=== PATIENT | female | born 1960 | race Caucasian/White ===

== ENCOUNTER → 2020-09-22 14:22 | Outpatient (BNVA) | payer MEDICARE, MEDICAID, SELFPAY | PROVIDERS: PCP Internal Medicine; Visit Provider Hospitalist | DX: J45.40 Moderate persistent asthma, uncomplicated (principal); K21.00 Gastro-esophageal reflux disease with esophagitis, without bleeding; G47.33 Obstructive sleep apnea (adult) (pediatric); Q67.6 Pectus excavatum; Z79.899 Other long term (current) drug therapy | CPT/HCPCS: 99214 ==

== ENCOUNTER → 2020-12-07 13:36 | Outpatient (BNVA) | payer MEDICARE, MEDICAID, SELFPAY | PROVIDERS: PCP Internal Medicine; Visit Provider Internal Medicine | DX: J45.40 Moderate persistent asthma, uncomplicated (principal); G47.33 Obstructive sleep apnea (adult) (pediatric); Q67.6 Pectus excavatum; K21.9 Gastro-esophageal reflux disease without esophagitis; K21.00 Gastro-esophageal reflux disease with esophagitis, without bleeding; Z79.899 Other long term (current) drug therapy; Z20.822 Contact with and (suspected) exposure to COVID-19 | CPT/HCPCS: 36415; C9803; Q3014; U0003 ==

== ENCOUNTER 2020-12-07 16:00 | Outpatient (REF) | payer MEDICARE, MEDICAID, SELFPAY | END 2020-12-07 16:01 | disposition home or self-care (01) | LOC: HO.LAB 16:00 | PROVIDERS: Visit Provider Internal Medicine | DX: Z20.828 Contact with and (suspected) exposure to other viral communicable diseases (principal) | CPT/HCPCS: 36415; C9803; U0003 ==

== ENCOUNTER 2020-12-16 10:26 | Outpatient (REF) | payer MEDICARE, MEDICAID, SELFPAY ==
--- NOTE | 2020-12-16 11:24 | XR_ITS ---
EXAMINATION: CHEST X-RAY CLINICAL INFORMATION: Cough COMPARISON: Previous chest x-ray most recent June 2020 TECHNIQUE: Two-view chest FINDINGS: The heart does not appear enlarged. There is a right-sided aortic arch. There are surgical clips in the mediastinum and left lung apex. Hilar and mediastinal contours are otherwise unremarkable. The lungs are clear. There is no pleural effusion or pneumothorax. There is mild pectus deformity and scoliosis. There is partial resection or bone loss of the right fourth rib that appears unchanged. XR/XR sinus min 3V IMPRESSION: No evidence for acute disease in the chest.
--- NOTE | 2020-12-16 11:24 | XR_ITS ---
EXAMINATION: CHEST X-RAY CLINICAL INFORMATION: Cough COMPARISON: Previous chest x-ray most recent June 2020 TECHNIQUE: Two-view chest FINDINGS: The heart does not appear enlarged. There is a right-sided aortic arch. There are surgical clips in the mediastinum and left lung apex. Hilar and mediastinal contours are otherwise unremarkable. The lungs are clear. There is no pleural effusion or pneumothorax. There is mild pectus deformity and scoliosis. There is partial resection or bone loss of the right fourth rib that appears unchanged. XR/XR chest 2V IMPRESSION: No evidence for acute disease in the chest.
[2020-12-16 12:22] LABS: MANUAL DIFF FLAG NO
[2020-12-16 12:32] LABS: Basophils Percent Auto 0.6 % (0-2); Eosinophils Absolute Auto 0.1 X10*3/uL (0.0-0.4); Eosinophils Percent Auto 1.8 % (0-4); Hematocrit 41.5 % (37-47); Hemoglobin 14.1 g/dl (12.0-16.0); Imm Gran Abs Auto 0.01 X10*3/uL (0.00-0.03); Imm Gran Pct Auto 0.1 % (0.0-0.4); Lymphocytes Absolute Auto 1.1 X10*3/uL (1.2-4.9); Lymphocytes Percent Auto 16.7 % (20-40); Mean Corpuscular Hemoglobin 29.6 pg (27.0-33.0); Mean Platelet Volume 10.7 fL (9.4-12.3); Monocytes Absolute Auto 0.4 X10*3/uL (0.1-1.2); Monocytes Percent Auto 6.2 % (2-11); Neutrophils Absolute Auto 5.1 X10*3/uL (2.0-8.3); Neutrophils Percent Auto 74.6 % (45-73); Platelet Count 190 X10*3/uL (160-400); Red Blood Count 4.77 X10*6/uL (4.20-5.50); Red Cell Distribution Width 12.3 % (11.0-16.0); White Blood Count 6.8 X10*3/uL (4.8-10.8)
[2020-12-16 13:43] LABS: SARS COV2 IgG Negative (Negative)
[2020-12-16 13:49] LABS: Erythrocyte Sedimentation Rate 5 MM/HR (0-20)
[2020-12-17 23:22] LABS: IgA 61 mg/dL (70-320); IgG 908 mg/dL (600-1540); IgM 98 mg/dL (50-300)
== END 2020-12-16 10:27 | disposition home or self-care (01) ==
LOC: HO.LAB 10:26
PROVIDERS: PCP Internal Medicine; Visit Provider Hospitalist
DX: R05 Cough (principal); J45.909 Unspecified asthma, uncomplicated; J32.9 Chronic sinusitis, unspecified; Z01.84 Encounter for antibody response examination
CPT/HCPCS: 36415; 70220; 71046; 82784; 85025; 85652; 86769; 99212

== ENCOUNTER → 2021-01-17 14:04 | Outpatient (BNVA) | payer MEDICARE, MEDICAID, SELFPAY | PROVIDERS: PCP Internal Medicine; Visit Provider Hospitalist | DX: Z76.89 Persons encountering health services in other specified circumstances (principal) | CPT/HCPCS: 99212 ==

== ENCOUNTER → 2021-05-22 12:51 | Outpatient (REF) | payer MEDICARE, MEDICAID, SELFPAY ==
--- NOTE | 2021-05-22 13:47 | ECG_ITS ---
Test Reason : COPD Blood Pressure : / mmHG Vent. Rate : 070 BPM Atrial Rate : 070 BPM P-R Int : 160 ms QRS Dur : 072 ms QT Int : 390 ms P-R-T Axes : 061 050 054 degrees QTc Int : 421 ms Sinus rhythm with Premature supraventricular complexes Otherwise normal ECG No previous ECGs available Referred By: Ousmane Saucedo Electronically Signed By:Tino Steve
== END ==
LOC: HO.CARD 12:51
PROVIDERS: PCP Internal Medicine; Visit Provider Hospitalist
DX: R00.2 Palpitations (principal); J44.9 Chronic obstructive pulmonary disease, unspecified; J45.40 Moderate persistent asthma, uncomplicated; R05 Cough; Q67.6 Pectus excavatum; G47.33 Obstructive sleep apnea (adult) (pediatric); K21.00 Gastro-esophageal reflux disease with esophagitis, without bleeding; J31.0 Chronic rhinitis
CPT/HCPCS: 93005; 99212

== ENCOUNTER → 2021-07-13 13:45 | Outpatient (BNVA) | payer MEDICARE, MEDICAID, SELFPAY | PROVIDERS: PCP Internal Medicine; Visit Provider Hospitalist | DX: R05 Cough (principal); J45.40 Moderate persistent asthma, uncomplicated; K21.00 Gastro-esophageal reflux disease with esophagitis, without bleeding; J31.0 Chronic rhinitis; G47.33 Obstructive sleep apnea (adult) (pediatric); Q67.6 Pectus excavatum; B37.0 Candidal stomatitis | CPT/HCPCS: 99212 ==

== ENCOUNTER → 2022-01-10 09:42 | Outpatient (BNVA) | payer MEDICARE, MEDICAID, SELFPAY | PROVIDERS: PCP Internal Medicine; Visit Provider Hospitalist | DX: Z13.89 Encounter for screening for other disorder (principal) | CPT/HCPCS: Q3014 ==

== ENCOUNTER 2023-07-22 15:32 | Outpatient (REF) | payer MEDICARE, OTHER, MEDICAID, SELFPAY ==
--- NOTE | ~2023-07-22 | XR_ITS ---
EXAMINATION: XR CHEST CLINICAL INFORMATION: Chest pain COMPARISON: None available. TECHNIQUE: 2 views of the chest were obtained. FINDINGS: Heart size within normal limits. Multiple surgical clips are identified about the thoracic inlet. Well defined aortic knob is not present. No vascular congestion, consolidations or effusions. Mild degenerative changes. XR/XR chest 2V IMPRESSION: No acute cardiopulmonary disease.
[2023-07-22 21:00] LABS: Influenza A PCR NEGATIVE (Negative); Influenza B PCR NEGATIVE (Negative); Resp Syncy Virus RNA Qual PCR NEGATIVE (Negative); SARS COV2 PCR INHOUSE NEGATIVE (Negative)
== END 2023-07-22 15:33 | disposition home or self-care (01) ==
LOC: HO.XRAY 15:32
PROVIDERS: PCP Internal Medicine; Visit Provider Hospitalist
DX: R07.9 Chest pain, unspecified (principal); J40 Bronchitis, not specified as acute or chronic; J45.40 Moderate persistent asthma, uncomplicated; Z20.822 Contact with and (suspected) exposure to COVID-19; K21.00 Gastro-esophageal reflux disease with esophagitis, without bleeding; J31.0 Chronic rhinitis; B37.0 Candidal stomatitis
CPT/HCPCS: 0241U; 71046; 99212

== ENCOUNTER 2023-07-22 15:32 | Outpatient (AMB) | payer MEDICARE, OTHER, MEDICAID, SELFPAY ==
--- NOTE | 2023-07-22 15:48 | A.OFFVIS_ITS ---
Intake Vital Signs 07/22/23 15:50 Height 5 ft 1 in Weight 125 lb BMI 23.6 BP 100/68 Blood Pressure Location Rt brachial Position Sitting Pulse 83 Pulse Source Pulse Oximeter Pulse Oximetry (%) 96 Oxygen Delivery Method Room Air Intake Visit Reasons: asthma Ball Racker Required: No Allergies azithromycin Allergy (Severe, Verified 07/22/23 15:52) Palpitations ciprofloxacin [From CIPRO] Allergy (Severe, Verified 07/22/23 15:52) Palpitations Iodinated Contrast Media [IODINATED CONTRAST MEDIA] Allergy (Unknown, Verified 07/22/23 15:52) RASH levofloxacin [From LEVAQUIN] Allergy (Unknown, Verified 07/22/23 15:52) DIFFICULTY BREATHING moxifloxacin [From AVELOX] Allergy (Unknown, Verified 07/22/23 15:52) DIARRHEA venlafaxine [From EFFEXOR] Allergy (Unknown, Verified 07/22/23 15:52) SWELLING amoxicillin [From Augmentin] Adverse Reaction (Severe, Verified 07/22/23 15:52) Diarrhea clavulanic acid [From Augmentin] Adverse Reaction (Severe, Verified 07/22/23 15:52) Diarrhea HPI HPI Comments History of Present Illness Details The patient is a 62-year-old woman with 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 Currently, the patient has been evaluated also for lower extremity neuropathy. She is scheduled to undergo a biopsy in the coming days. In the meantime she continues to have significant shortness of breath. Moderate to severe at times. Usually worse when she takes a deep breath in. She has been using her inhalers and date to help some. In the office with did to a flow volume loop, spirometry. No evidence of any obstructive ventilatory defects. However she did have some fluttering of the flows during the inspiratory component suggesting the possibility of vocal cord dysfunction. She has had evidence of vocal cord dysfunction on previous bronchoscopy. She is also not using her CPAP because she is concerned every infections her sinuses. She is complaining of some sinus pressure and is also complaining of some chest pressure along with wheezing and cough. We did review her blood work that she had recently demonstrating again a low IgA level, 44. At this time in due to her recurrent infections in the sinuses in the respiratory tract is not on reasonable for her to be seen by immunology. I will arrange that. In the meantime she is going to continue her respiratory therapy. She is going to start budesonide for couple weeks to see if there is improvement. She continues using her nasal sprays. In regards of her asthma appears to be better controlled on the Alvesco 2 puffs twice a day. She continue using this for now. She needs a refill. We did review her x-rays that she had recently in the hospital. Initially she went and was tested for COVID-19 which came back negative. However the x-ray demonstrated a slight nodular opacity in her right mid lung. She does have a history of cancer in the family so she is became very concerned. We did look at previous CT scans that she has had back in 2018 at [facility], but, she did not have any findings therapy. Therefore request of CT scan of the chest was address the abnormal finding on the x-ray. To note the final read in the x-ray did not mention the opacity that was present. She did undergo a CT chest to assess her abnornal CXR with demonstrated minimal apical scarring. Does have mediastinal LN which appear to be stable for couple years. No evidence of any nodules. Does have some post operative changes. 12/16/2020 the patient is here for sick visit. She has been complaining of worsening cough with sinus congestion. Also having sinus tenderness. She is wondering if she is having sinusitis. Unfortunately she was placed on azithromycin developed significant is with palpitations. She was seen by Cardiology and they recommended that she stop the azithromycin because is likely contributing to her SVT. We did added to her allergies or adverse effects to avoid in the future. Her cough is moderate severity. She always has some degree of chest discomfort. She does have pectus could vitamin she did have cardiac surgery due to her congenital heart disease. Unfortunately, she has significant allergies to medications. It is apparent that she does have some degree of subacute sinusitis will try to use cephalosporin to see if she can tolerate that undergo better. In the meantime will check her for blood work including antibiotics for COVID-19 to make sure she had not been exposed to SARS Cov2. She also undergo chest x-ray and sinus x-rays to better assess her degree of sinusitis. She may benefit from ENT follow-up if the patient is not better and possibly get a CT scan of the sinuses. 01/17/2021 the patient is a telephone visit today. She still struggling with her sinus congestion. During the last evaluation the patient was having some significant sinus pressure and discharge. She had a sinus x-ray that was without any acute disease. She also use Vantin for 7 days with partial resolution of the symptoms. Then after another week her symptoms did improve for couple weeks. Unfortunately, then the return. She feels again the discomfort the postnasal drip and congestion of the sinuses. She has been doing [id number] Mucinex. Patient needs to at this point see ENT. She has seen ENT locally in the [place] and she is going to give them a call. She will benefit from getting a laryngoscopy and also a sinus CT. She is concerned about her imaging state. We had checked her IgG subclasses about a year ago and there were stable. Recent we checked her IgG levels total with there were also within normal limits. Her Ig a level and had been low previously and did increase briefly to 60 which is still low but improved from 44. At this point we can also check her IgM level and recheck her IgG subclasses to see if she has a significant immune deficiency that needs to be treated. We can also consider prophylactic antibiotics depending on the findings. In the meantime she continues with respiratory therapy. Appears that her asthma is controlled at this time. 05/22/21 the patient is here for a pulmonary follow up visit. She still complaining of chest heaviness and dyspnea. She has been having issues with cardiac abnormalities. She was evaluated by EP and recommended conservative therapy. Today she did have irregular irregular HR. Therefore she did undergo an EKG demonstrating frequent PVCs. The patient does have on going symptoms of dyspnea which maybe related to her congenital cardiovascular abnormalities. She has not been using her CPAP due to taking care of her mother. She knows that she needs to use it. She continues her respiratory therapy, ICS and LAMA will not interfere with her cardiac issues. She is only using the xopenex as needed. 07/13/2021 the patient is here for a sick visit. Apparently she started developing abdominal discomfort and GI bleed with hematochezia. She was evaluated at [facility] was diagnosed with diverticulitis. She was treated with course of Flagyl and also Augmentin. She did follow-up with her surgeon and felt that her diverticulitis was still active and she got a 2nd course. However, it has been difficult for her to tolerated because of abdominal discomfort and nausea. Therefore she stop the Flagyl. She has been complaining also of significant sinus congestion in addition to a fall taste in her mouth. She also has irritation or time. Explained to her that most likely this is a combination of antibiotic use change in the taste buds in addition to that the possibility of fungal colonization an overgrowth due to her prolonged course of antibiotics. The patient did have a CT scan of the abdomen done recently which she will back to the ER complaining of black stools. She was given IV Protonix in the patient does have Nexium at home. The patient needs to follow-up with the GI doctor about this. It is most likely the black stools were due to the use of Pepto-Bismol and not from an upper GI bleed. However, this needs to be further addressed with her GI specialist. 01/10/2022 this is a telehealth visit. The patient has been complaining of URI like symptoms now for the last few days.. She started with sore throat and also had fevers. She did have a PCR test for COVID which was negative. The patient has been complaining now of chest tightness and also some pleuritic chest discomfort on the left side. Jpmu-zq-obwnqrin severity. Does worsen when taking a deep breath in or coughing. She is productive in she is bringing up phlegm which is yellowish in color. Explained to the patient that she should get retested again for COVID-19 since she has a lot of the typical symptoms. She can do a home antigen test if she likes specially since is been more than 3 days of symptoms. 07/22/2023 the patient is here for sick visit. Apparently for the last few days she has been complaining of sinus congestion and headache. She has complained of a postnasal drip and some hoarseness. Ultimately she started developing worsening cough now with some chest tightness and heaviness. Cavd-vv-[id number] severity. Denies any fevers or chills although she feels fatigued. We did swab her for flu, COVID and RSV. It did come back negative. No significant wheezing on examination. The patient also to note was diagnosed with osteoporosis. Therefore, we have to very careful with any steroid therapy. Will start the patient on doxycycline and also will start her on budesonide nebs to see if that can help decrease the chest tightness without the need of prednisone. [facility], LAT[facility] Medical History (Updated 01/11/22 @ 09:09 by Ousmane Saucedo MD) Asthma Bronchitis Chronic rhinitis Cough GERD (gastroesophageal reflux disease) Oral candidiasis HOLLI (obstructive sleep apnea) Palpitation Pectus excavatum Sinusitis Family History Brother Lung cancer Social History (Updated 05/22/21 @ 13:12 by Carissa Mendoza Daniel) Patient Tobacco Use Status: Former Tobacco user Tobacco use type: Cigarette Years Smoked: 40 years Review of Systems Const Reports fatigue, Denies fever(s) and Denies night sweats ENT Denies change in voice, Denies lip swelling, Reports mouth pain, Reports nasal congestion, Reports nasal discharge, Reports odynophagia, Reports sinus pain, Reports sinus pressure, Reports sore throat and Denies tongue swelling Card Reports chest pain and Reports dyspnea Resp Denies change in phlegm color, Reports chest congestion, Reports cough and Reports dyspnea GI Reports abdominal pain, Denies diarrhea, Reports nausea, Reports odynophagia and Denies hematemesis Musc Denies no additional complaints Neuro Denies Neuro-related abnormal movements Psych Denies no additional complaints Endo Reports fatigue Ricardo/Lymph Denies easy bleeding and Denies lymphadenopathy Aller/Immun Denies lip swelling and Denies tongue swelling Physical Exam Vital Signs: Last Vital Signs Pulse 83 07/22/23 15:50 BP 100/68 07/22/23 15:50 Pulse Ox 96 07/22/23 15:50 Oxygen Delivery Method Room Air 07/22/23 15:50 BMI result Body Mass Index 23.6 Const General: alert HEENT General nose exam: Abnormal mucous membranes and turbinates present and Nasal discharge present Neck Neck: Yes normal visual inspection, Yes full ROM and Yes no lymphadenopathy Chest Chest palpation & inspection: normal inspection of the chest Resp Auscultation: diminished lung sounds Cardio Rate: regular rate Rhythm: regular rhythm Heart sounds: S1 normal heart sound present and S2 normal heart sound present GI Palpation (GI): Soft to palpation and nontender Auscultation: normal bowel sounds Skin General skin exam: rashes and/or lesions noted Assessment & Plan Assessment & Plan (1) Chest pain: Code(s): R07.9 - Chest pain, unspecified (2) Bronchitis: Code(s): J40 - Bronchitis, not specified as acute or chronic (3) Cough: Code(s): R05 - Cough (4) HOLLI (obstructive sleep apnea): Code(s): G47.33 - Obstructive sleep apnea (adult) (pediatric) (5) Pectus excavatum: Comment: CONGENITAL DEFORMITY . Code(s): Q67.6 - Pectus excavatum (6) Asthma: Comment: CHRONIC PERSISTANT Code(s): J45.909 - Unspecified asthma, uncomplicated Qualifiers: Asthma severity: moderate Asthma persistence: persistent Asthma complication type: uncomplicated Qualified Code(s): J45.40 - Moderate persistent asthma, uncomplicated (7) GERD (gastroesophageal reflux disease): Comment: CHRONIC , CONT. THE CURRENT REGIMEN Code(s): K21.9 - Gastro-esophageal reflux disease without esophagitis Qualifiers: Esophagitis presence: with esophagitis Esophagitis bleeding: without hemorrhage Qualified Code(s): K21.00 - Gastro-esophageal reflux disease with esophagitis, without bleeding (8) Chronic rhinitis: Code(s): J31.0 - Chronic rhinitis (9) Oral candidiasis: Code(s): B37.0 - Candidal stomatitis Plan Start Doxycycline (she is concern with cdiff colitis) start Budesonide nebs Continue Spiriva, ICS Xopenex on as needed CXR Continue Astelin singulair reflux diet, HOB elevated Continue Nexium Start diflucan F/U 3-4 months Orders: Orders XR chest 2V Today R07.9 - Chest pain, unspecified SARS-CoV2/FLU/RSV Today J40 - Bronchitis, not specified as acute or chronic Medications: New doxycycline monohydrate 100 mg PO BID 14 days 28 tabs 0RF fluconazole 100 mg PO DAILY 7 tabs 0RF 7 days Changed From budesonide 0.5 mg (2 mL) inhalation BID 90 days 360 mL 2RF J44.9 - Chronic obstructive pulmonary disease, unspecified To budesonide 0.5 mg (2 mL) inhalation DAILY 30 days 60 mL 11RF J44.9 - Chronic obstructive pulmonary disease, unspecified Refilled levalbuterol HCl 1.25 mg (3 mL) inhalation BID 180 mL 11RF J44.9 - Chronic obstructive pulmonary disease, unspecified Coding Level of Care Code Est Pt Level 4 (50213) Diagnoses Chest pain R07.9 Bronchitis J40 Cough R05 HOLLI (obstructive sleep apnea) G47.33 Pectus excavatum Q67.6 Asthma J45.40 Asthma severity: moderate Asthma persistence: persistent Asthma complication type: uncomplicated GERD (gastroesophageal reflux disease) K21.00 Esophagitis presence: with esophagitis Esophagitis bleeding: without hemorrhage Chronic rhinitis J31.0 Oral candidiasis B37.0 Time Spent (min) 18
[2023-07-22 15:50] VITALS: BP 100/68; PULSE 83; O2SAT 96; BMI 23.6
== END 2023-07-22 16:21 | disposition home or self-care (01) ==
PROVIDERS: PCP Internal Medicine; Visit Provider Hospitalist
DX: R07.9 Chest pain, unspecified (principal); J40 Bronchitis, not specified as acute or chronic; R05.9 Cough, unspecified; G47.33 Obstructive sleep apnea (adult) (pediatric); Q67.6 Pectus excavatum; J45.40 Moderate persistent asthma, uncomplicated; K21.00 Gastro-esophageal reflux disease with esophagitis, without bleeding; J31.0 Chronic rhinitis; B37.0 Candidal stomatitis
CPT/HCPCS: 99214

== ENCOUNTER 2023-10-02 14:41 | Outpatient (AMB) | payer MEDICARE, OTHER, MEDICAID, SELFPAY ==
[2023-10-02 14:44] VITALS: BP 112/64; PULSE 76; O2SAT 97; BMI 23.8
--- NOTE | 2023-10-02 14:44 | A.OFFVIS_ITS ---
Intake Vital Signs 10/02/23 14:44 Height 5 ft 1 in Weight 126 lb BMI 23.8 BP 112/64 Blood Pressure Location Rt brachial Position Sitting Pulse 76 Pulse Source Pulse Oximeter Pulse Oximetry (%) 97 Oxygen Delivery Method Room Air Intake Visit Reasons: cough, congestion Clinical Outcomes Manager Required: No Batch Heat Treat Operator: Batch Heat Treat Operator offered & declined Accompanied by: Self / Same As Patient Allergies azithromycin Allergy (Severe, Verified 10/02/23 14:51) Palpitations ciprofloxacin [From CIPRO] Allergy (Severe, Verified 10/02/23 14:51) Palpitations Iodinated Contrast Media [IODINATED CONTRAST MEDIA] Allergy (Unknown, Verified 10/02/23 14:51) RASH levofloxacin [From LEVAQUIN] Allergy (Unknown, Verified 10/02/23 14:51) DIFFICULTY BREATHING moxifloxacin [From AVELOX] Allergy (Unknown, Verified 10/02/23 14:51) DIARRHEA venlafaxine [From EFFEXOR] Allergy (Unknown, Verified 10/02/23 14:51) SWELLING amoxicillin [From Augmentin] Adverse Reaction (Severe, Verified 10/02/23 14:51) Diarrhea clavulanic acid [From Augmentin] Adverse Reaction (Severe, Verified 10/02/23 14:51) Diarrhea Medication List - Last Reconciled 10/02/23 by Mariella Kunz LPN budesonide 0.5 mg (2 mL) inhalation DAILY 30 days cholecalciferol (vitamin D3) 25 mcg PO DAILY ciclesonide 160 mcg/actuation (Alvesco) 2 puffs PO BID citalopram (Celexa) 20 mg PO DAILY clonazepam 1 mg PO BEDTIME PRN epinephrine 1 IM famotidine 40 mg PO BEDTIME gabapentin (Neurontin) 600 mg PO TID lactobacillus combination no.8 (Adult Probiotic) 3,000 mmu cells PO DAILY levalbuterol HCl 1.25 mg (3 mL) inhalation BID levalbuterol tartrate 45 mcg/actuation 2 puffs inhalation Q6H PRN loratadine 10 mg PO DAILY montelukast 10 mg PO BEDTIME naltrexone 50 mg PO DAILY nebulizers As directed nystatin 1 mL PO BID 30 days plecanatide (Trulance) 3 mg PO DAILY Spiriva Respimat 2.5 mcg/actuation (tiotropium bromide) 2 puffs PO DAILY NS HPI cough, congestion HPI Details Flores is a very pleasant 63 year old female, never smoker, with underlying asthma, HOLLI and osteoporosis. At baseline, she is moderately controlled on Alvesco, Spriva and claritin. Today she presents for an acute visit. She reports symptoms initially started as allergies with nasal congestion then developed into dry cough, chest congestion and tightness which has been progressively worsening over the past week. She has been using her levalbuterol as well as budesonide nebulizer without significant effect. She reports difficulty taking a deep breath, wheezing and associated dyspnea. She denies any fevers, chills or sick contacts. [facility], [facility] Medical History (Updated 01/11/22 @ 09:09 by Ousmane Saucedo MD) Bronchitis Oral candidiasis Chronic rhinitis Palpitation Sinusitis Cough HOLLI (obstructive sleep apnea) Pectus excavatum Asthma GERD (gastroesophageal reflux disease) Family History Brother Lung cancer Social History (Updated 10/02/23 @ 14:58 by Mariella Kunz LPN) Patient Tobacco Use Status: Former Tobacco user Tobacco use type: Cigarette Years Smoked: 40 years Smoked in Last 30 Days: No Review of Systems Const Denies chills, Denies excessive sweating, Denies fever(s), Denies headache(s) and Denies night sweats Eyes Denies dry eyes, Denies irritation and Denies itchy eyes ENT Reports Normal hearing present, Denies headache(s), Denies nasal discharge and Denies sore throat Card Denies chest pain, Denies chest pain at rest, Denies chest pain with activity, Denies claudication, Denies leg edema, Denies orthopnea and Denies paroxysmal nocturnal dyspnea Resp Denies pain on inspiration, Denies pain with cough and Denies stridor Musc Denies myalgias Neuro Reports Normal hearing present and Denies headache(s) Endo Denies excessive sweating Ricardo/Lymph Denies lymphadenopathy Aller/Immun Denies itchy eyes and Denies seasonal rhinorrhea Physical Exam Vital Signs: Last Vital Signs Pulse 76 10/02/23 14:44 BP 112/64 10/02/23 14:44 Pulse Ox 97 10/02/23 14:44 Oxygen Delivery Method Room Air 10/02/23 14:44 BMI result Body Mass Index 23.8 Const General: cooperative, no acute distress, well developed and alert Orientation/consciousness: patient oriented x3 Limitations: no limitations HEENT Head: Yes normal to inspection, Yes normocephalic and Yes atraumatic Ears: hearing grossly normal bilaterally and external ears normal Eyes General: appearance normal, both eyes and all related structures Eyelids: Yes eyelids normal Sclerae: sclerae normal EOM: EOMs intact bilaterally Neck Neck: Yes normal visual inspection and Yes no lymphadenopathy Lymphatic: no lymphadenopathy noted Chest Chest palpation & inspection: normal inspection of the chest Resp Other: poor air movement bilaterally with expiratory wheezes, improved after nebulizer. Effort & Inspection: normal respiratory effort, able to speak in complete sentences, no audible wheezes, no stridor, not tachypneic, no tripod positioning and no use of accessory muscles Cardio Jugular venous distension: no JVD Rate: regular rate Rhythm: regular rhythm Skin Other: warm, dry General skin exam: no rashes or lesions noted Neuro General: patient oriented x3 Cranial nerves: Yes Normal hearing present Cognition (Neuro): normal cognition Gait exam (Neuro): Normal gait present Extrem General: Yes normal to inspection, Yes capillary refill normal, Yes no clubbing, cyanosis or edema and Yes no pedal edema Psych Appearance: grossly normal and well kempt Speech and movement: Normal speech and movement present and Clear speech present Affect: normal affect Attitude: cooperative Thought process: Normal thought process present Thought content: Normal thought content present Insight: Good insight present (Psych) Judgement: Good judgement present (Psych) Office Procedures Nebulizer Treatment Nebulizer Treatment 72095-Mmzploije/MDI RX initial, or Nebulizer Subsequent Treatment Office Meds ipratropium 0.5 mg-albuterol 3 mg (2.5 mg base)/3 mL nebulization soln Performing Provider: Annette Holly NP Performing Location: [facility] [place] [facility] Administered by: Mariella Kunz LPN on 10/02/23 15:30 Dose Route Admin Location Dispensed Lot Number Expiration Date [facility] [employer] 3 mL inhalation 3 mL [id number] 01/29/25 [id number] [facility] Assessment & Plan Assessment & Plan (1) Asthma: Comment: CHRONIC PERSISTANT Code(s): J45.909 - Unspecified asthma, uncomplicated Qualifiers: Asthma severity: moderate Asthma persistence: persistent Asthma complication type: uncomplicated Qualified Code(s): J45.40 - Moderate persist ent asthma, uncomplicated (2) Bronchitis: Code(s): J40 - Bronchitis, not specified as acute or chronic (3) Cough: Code(s): R05 - Cough (4) Chronic rhinitis: Code(s): J31.0 - Chronic rhinitis (5) HOLLI (obstructive sleep apnea): Code(s): G47.33 - Obstructive sleep apnea (adult) (pediatric) Plan Flores presents with asthma exacerbation as well as symptoms of URI. Will treat with doxycyline and prednisone. We had a long detailed discussion regarding the use of prednisone given her history of osteoporosis. She has been using nebulized budesonide without effect and continues with significant chest tightness. Nebulizer given in office with partial relief. Will also send in ipratropium to use with xopenex and obtain CXR. Encouraged patient to use mucinex DM and increase fluid intake. Patient briefly discussed the possibility of trialing a biologic. Advised patient to discuss at next visit with Dr. Saucedo. All questions were answered and patient is in agreement of plan. Will follow up for regularly scheduled appointment or sooner if needed. Orders: Orders XR chest 2V Today R05 - Cough AMB Nebulizer Treatment Today J40 - Bronchitis, not specified as acute or chronic, J45.909 - Unspecified asthma, uncomplicated Medications: New prednisone 40 mg (2 x 20 mg) PO DAILY 10 tabs 0RF doxycycline hyclate 100 mg PO BID 20 caps 0RF ipratropium bromide use with levalbuterol 2.5 mL inhalation BID PRN 75 mL 0RF shortness of breath or wheezing Coding Level of Care Code Est Pt Level 4 (89603) Diagnoses Moderate persistent asthma without complication J45.40 Asthma severity: moderate Asthma persistence: persistent Asthma complication type: uncomplicated Bronchitis J40 Cough R05 Chronic rhinitis J31.0 HOLLI (obstructive sleep apnea) G47.33 CPT Codes Nebulizer Treatment - Nebulizer Treatment, initial or subsequent: 52539- Nebulizer/MDI RX initial, or Nebulizer Subsequent Treatment ([id number])
== END 2023-10-02 16:00 | disposition home or self-care (01) ==
LOC: HO.HPSW 14:41
PROVIDERS: PCP Internal Medicine; Visit Provider Nurse Practitioner Family
DX: J45.909 Unspecified asthma, uncomplicated (principal)
CPT/HCPCS: 99214

== ENCOUNTER → 2023-10-02 14:41 | Outpatient (BNVA) | payer MEDICARE, OTHER, MEDICAID, SELFPAY | PROVIDERS: PCP Internal Medicine; Visit Provider Nurse Practitioner Family | DX: J45.40 Moderate persistent asthma, uncomplicated (principal); J40 Bronchitis, not specified as acute or chronic; R05.9 Cough, unspecified; J31.0 Chronic rhinitis; G47.33 Obstructive sleep apnea (adult) (pediatric) | CPT/HCPCS: 94640; 99212 ==

== ENCOUNTER 2023-10-17 13:00 | Outpatient (RCR) | payer MEDICARE, OTHER, MEDICAID, SELFPAY | END 2023-11-21 14:21 | disposition home or self-care (01) | LOC: HO.PT 13:00 | PROVIDERS: PCP Internal Medicine; Visit Provider Nurse Practitioner | DX: K59.00 Constipation, unspecified (principal); K31.89 Other diseases of stomach and duodenum | CPT/HCPCS: 97110; 97112; 97140; 97161 ==

== ENCOUNTER 2023-11-04 11:12 | Outpatient (REF) | payer MEDICARE, OTHER, MEDICAID, SELFPAY ==
[2023-11-04 12:15] LABS: MANUAL DIFF FLAG NO
[2023-11-04 12:47] LABS: Basophils Absolute Auto 0.1 X10*3/uL (0.0-0.2); Basophils Percent Auto 1.3 % (0-2); Eosinophils Absolute Auto 0.2 X10*3/uL (0.0-0.4); Eosinophils Percent Auto 4.9 % (0-4); Hematocrit 36.8 % (37.0-47.0); Hemoglobin 12.5 g/dl (12.0-16.0); Imm Gran Abs Auto 0.01 X10*3/uL (0.00-0.03); Imm Gran Pct Auto 0.3 % (0.0-0.4); Lymphocytes Absolute Auto 0.7 X10*3/uL (1.2-4.9); Lymphocytes Percent Auto 18.7 % (20-40); Mean Corpuscular Hemoglobin 29.6 pg (27.0-33.0); Mean Corpuscular Volume 87.2 fL (80.0-98.0); Mean Platelet Volume 10.6 fL (9.4-12.3); Monocytes Absolute Auto 0.3 X10*3/uL (0.1-1.2); Monocytes Percent Auto 8.2 % (2-11); Neutrophils Absolute Auto 2.6 x10*3/uL (2.0-8.3); Neutrophils Percent Auto 66.6 % (45-73); Platelet Count 204 X10*3/uL (160-400); Red Blood Count 4.22 X10*6/uL (4.20-5.50); Red Cell Distribution Width 12.5 % (11.0-16.0); White Blood Count 3.9 X10*3/uL (4.8-10.8)
[2023-11-04 13:07] LABS: Anion Gap 12 (12-20); Blood Urea Nitrogen 10 mg/dL (9-16); Calcium 9.3 mg/dL (8.4-10.2); Carbon Dioxide 28 mmol/L (22-29); Chloride 104 mmol/L (96-108); Estimated Glomerular Filt Rate > 60; Glucose Random 74 mg/dL (60-115); Potassium 4.4 mmol/L (3.3-5.1); Sodium 140 mmol/L (135-145)
[2023-11-04 13:27] LABS: Erythrocyte Sedimentation Rate 12 MM/HR (0-20)
[2023-11-05 19:58] LABS: Immunoglobulin E 13 kU/L (<OR=114)
[2023-11-06 12:39] LABS: IgA 50 mg/dL (70-320); IgG 888 mg/dL (600-1540); IgM 97 mg/dL (50-300)
== END 2023-11-04 11:13 | disposition home or self-care (01) ==
LOC: HO.LAB 11:12
PROVIDERS: PCP Internal Medicine; Visit Provider Hospitalist
DX: R07.9 Chest pain, unspecified (principal); J44.9 Chronic obstructive pulmonary disease, unspecified; J40 Bronchitis, not specified as acute or chronic; R05.9 Cough, unspecified; J32.9 Chronic sinusitis, unspecified
CPT/HCPCS: 36415; 80048; 82784; 82785; 85025; 85652; 99212

== ENCOUNTER 2023-11-04 11:12 | Outpatient (AMB) | payer MEDICARE, OTHER, MEDICAID, SELFPAY ==
[2023-11-04 11:16] VITALS: BP 110/70; PULSE 87; O2SAT 100; BMI 23.8
--- NOTE | 2023-11-04 11:16 | A.OFFVIS_ITS ---
Intake Vital Signs 11/04/23 11:16 Height 5 ft 1 in Weight 126 lb BMI 23.8 BP 110/70 Blood Pressure Location Lt brachial Position Sitting Pulse 87 Pulse Source Pulse Oximeter Pulse Oximetry (%) 100 Oxygen Delivery Method Room Air Intake Visit Reasons: asthma Sharepoint Solutions Developer Required: No Allergies azithromycin Allergy (Severe, Verified 11/04/23 11:19) Palpitations ciprofloxacin [From CIPRO] Allergy (Severe, Verified 11/04/23 11:19) Palpitations Iodinated Contrast Media [IODINATED CONTRAST MEDIA] Allergy (Unknown, Verified 11/04/23 11:19) RASH levofloxacin [From LEVAQUIN] Allergy (Unknown, Verified 11/04/23 11:19) DIFFICULTY BREATHING moxifloxacin [From AVELOX] Allergy (Unknown, Verified 11/04/23 11:19) DIARRHEA venlafaxine [From EFFEXOR] Allergy (Unknown, Verified 11/04/23 11:19) SWELLING amoxicillin [From Augmentin] Adverse Reaction (Severe, Verified 11/04/23 11:19) Diarrhea clavulanic acid [From Augmentin] Adverse Reaction (Severe, Verified 11/04/23 11:19) Diarrhea HPI HPI Comments History of Present Illness Details The patient is a 63-year-old woman with 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 Currently, the patient has been evaluated also for lower extremity neuropathy. She is scheduled to undergo a biopsy in the coming days. In the meantime she continues to have significant shortness of breath. Moderate to severe at times. Usually worse when she takes a deep breath in. She has been using her inhalers and date to help some. In the office with did to a flow volume loop, spirometry. No evidence of any obstructive ventilatory defects. However she did have some fluttering of the flows during the inspiratory component suggesting the possibility of vocal cord dysfunction. She has had evidence of vocal cord dysfunction on previous bronchoscopy. She is also not using her CPAP because she is concerned every infections her sinuses. She is complaining of some sinus pressure and is also complaining of some chest pressure along with wheezing and cough. We did review her blood work that she had recently demonstrating again a low IgA level, 44. At this time in due to her recurrent infections in the sinuses in the respiratory tract is not on reasonable for her to be seen by immunology. I will arrange that. In the meantime she is going to continue her respiratory therapy. She is going to start budesonide for couple weeks to see if there is improvement. She continues using her nasal sprays. In regards of her asthma appears to be better controlled on the Alvesco 2 puffs twice a day. She continue using this for now. She needs a refill. We did review her x-rays that she had recently in the hospital. Initially she went and was tested for COVID-19 which came back negative. However the x-ray demonstrated a slight nodular opacity in her right mid lung. She does have a history of cancer in the family so she is became very concerned. We did look at previous CT scans that she has had back in 2018 at [facility], but, she did not have any findings therapy. Therefore request of CT scan of the chest was address the abnormal finding on the x-ray. To note the final read in the x-ray did not mention the opacity that was present. She did undergo a CT chest to assess her abnornal CXR with demonstrated minimal apical scarring. Does have mediastinal LN which appear to be stable for couple years. No evidence of any nodules. Does have some post operative changes. 07/22/2023 the patient is here for sick visit. Apparently for the last few days she has been complaining of sinus congestion and headache. She has complained of a postnasal drip and some hoarseness. Ultimately she started developing worsening cough now with some chest tightness and heaviness. Dijr-bj-srportct severity. Denies any fevers or chills although she feels fatigued. We did swab her for flu, COVID and RSV. It did come back negative. No significant wheezing on examination. The patient also to note was diagnosed with osteoporosis. Therefore, we have to very careful with any steroid therapy. Will start the patient on doxycycline and also will start her on budesonide nebs to see if that can help decrease the chest tightness without the need of prednisone. 11/04/2023 the patient is here for a pulm onary follow-up visit. Seems to be having worsening symptoms with her obstructive airway disease. She was recently evaluated by 1 of my colleagues for an asthma exacerbation. She was treated with prednisone and antibiotics. The patient has been responding fairly to the current respiratory regimen. Although sometimes the Xopenex as and help her. I did advise that she can always use additional the puffs if needed. The patient has not had pulmonary function studies and sometimes therefore will request a repeat study at this time. The patient has been getting allergy shots now for some time. Will go ahead and request a repeat blood work including a CBC with differential to assess her eosinophils and also an IgE count to see if she will benefit from biologic therapy. The patient may be a good candidate for either Dupixent or Xolair for underlying respiratory symptoms. Specially since she is not responding fully to the maximum respiratory therapy provided. The patient has a hard time tolerating long-acting beta agonist so therefore we need to avoid dose medications. She also had an allergic reaction to the doxycycline. She also has allergies to multiple other antibiotics. 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 Therefore, the patient will undergo blood work continue with current respiratory therapy in her PFTs and will return for follow-up visit. Will discuss additional management such as with biologics that time. [facility] Medical History (Updated 11/04/23 @ 18:52 by Ousmane Saucedo MD) Bronchitis Oral candidiasis Chronic rhinitis Palpitation Sinusitis Cough HOLLI (obstructive sleep apnea) Pectus excavatum Asthma GERD (gastroesophageal reflux disease) Family History Brother Lung cancer Social History (Updated 10/02/23 @ 14:58 by Mariella Kunz LPN) Patient Tobacco Use Status: Former Tobacco user Tobacco use type: Cigarette Years Smoked: 40 years Review of Systems Const Reports fatigue, Denies fever(s) and Denies night sweats ENT Reports Normal hearing present, Denies change in voice, Denies lip swelling, Reports mouth pain, Reports nasal congestion, Reports nasal discharge, Reports odynophagia, Reports sinus pain, Reports sinus pressure, Reports sore throat and Denies tongue swelling Card Reports chest pain and Reports dyspnea Resp Denies change in phlegm color, Reports chest congestion, Reports cough and Reports dyspnea GI Reports abdominal pain, Denies diarrhea, Reports nausea, Reports odynophagia and Denies hematemesis Musc Denies no additional complaints Neuro Reports Normal hearing present and Denies Neuro-related abnormal movements Psych Denies no additional complaints Endo Reports fatigue Ricardo/Lymph Denies easy bleeding and Denies lymphadenopathy Aller/Immun Denies lip swelling and Denies tongue swelling Physical Exam Vital Signs: Last Vital Signs Pulse 87 11/04/23 11:16 BP 110/70 11/04/23 11:16 Pulse Ox 100 11/04/23 11:16 Oxygen Delivery Method Room Air 11/04/23 11:16 BMI result Body Mass Index 23.8 Const General: cooperative, no acute distress, well developed and alert Orientation/consciousness: patient oriented x3 Limitations: no limitations HEENT Head: Yes normal to inspection, Yes normocephalic and Yes atraumatic Ears: hearing grossly normal bilaterally and external ears normal Eyes General: appearance normal, both eyes and all related structures Eyelids: Yes eyelids normal Sclerae: sclerae normal EOM: EOMs intact bilaterally Neck Neck: Yes normal visual inspection and Yes no lymphadenopathy Lymphatic: no lymphadenopathy noted Chest Chest palpation & inspection: normal inspection of the chest Resp Other: poor air movement bilaterally with expiratory wheezes, improved after nebulizer. Effort & Inspection: normal respiratory effort and able to speak in complete sentences Auscultation: clear to auscultation bilaterally Cardio Jugular venous distension: no JVD Rate: regular rate Rhythm: regular rhythm Skin Other: warm, dry General skin exam: no rashes or lesions noted Neuro General: patient oriented x3 Cranial nerves: Yes Normal hearing present Cognition (Neuro): normal cognition Gait exam (Neuro): Normal gait present Extrem General: Yes normal to inspection, Yes capillary refill normal, Yes no clubbing, cyanosis or edema and Yes no pedal edema Psych Appearance: grossly normal and well kempt Speech and movement: Normal speech and movement present and Clear speech present Affect: normal affect Attitude: cooperative Thought process: Normal thought process present Thought content: Normal thought content present Insight: Good insight present (Psych) Judgement: Good judgement present (Psych) Assessment & Plan Assessment & Plan (1) Asthma: Code(s): J45.909 - Unspecified asthma, uncomplicated Qualifiers: Asthma complication type: uncomplicated Asthma persistence: persistent Asthma severity: moderate Qualified Code(s): J45.40 - Moderate persistent asthma, uncomplicated (2) Cough: Code(s): R05 - Cough Qualifiers: Cough type: chronic Qualified Code(s): R05.3 - Chronic cough (3) Chronic rhinitis: Code(s): J31.0 - Chronic rhinitis (4) HOLLI (obstructive sleep apnea): Code(s): G47.33 - Obstructive sleep apnea (adult) (pediatric) Plan Continue Spiriva continue Alvesco ASHUTOSH as needed continue allergy shots Bloodwork, consider Biologics F/U 2-3 months Orders: Orders Basic Metabolic Panel Today J32.9 - Chronic sinusitis, unspecified, J45.909 - Unspecified asthma, uncomplicated, R05 - Cough Immunoglobulins,IgG IgA IgM Today J32.9 - Chronic sinusitis, unspecified, J45.909 - Unspecified asthma, uncomplicated, R05 - Cough Erythrocyte Sedimentation Rate Today J32.9 - Chronic sinusitis, unspecified, J45.909 - Unspecified asthma, uncomplicated, R05 - Cough Complete Blood Count Auto Diff Today J32.9 - Chronic sinusitis, unspecified, J45.909 - Unspecified asthma, uncomplicated, R05 - Cough Immunoglobulin E Today J32.9 - Chronic sinusitis, unspecified, J45.909 - Unspecified asthma, uncomplicated, R05 - Cough Coding Level of Care Code Est Pt Level 4 (58748) Diagnoses Moderate persistent asthma without complication J45.40 Asthma complication type: uncomplicated Asthma persistence: persistent Asthma severity: moderate Chronic cough R05.3 Cough type: chronic Chronic rhinitis J31.0 HOLLI (obstructive sleep apnea) G47.33 Time Spent (min) 17
== END 2023-11-04 13:38 | disposition home or self-care (01) ==
PROVIDERS: PCP Internal Medicine; Visit Provider Hospitalist
DX: J45.40 Moderate persistent asthma, uncomplicated (principal); R05.3 Chronic cough; J31.0 Chronic rhinitis; G47.33 Obstructive sleep apnea (adult) (pediatric)
CPT/HCPCS: 99214

== ENCOUNTER 2023-12-28 10:55 | Outpatient (REF) | payer MEDICARE, OTHER, MEDICAID, SELFPAY ==
--- NOTE | 2023-12-28 11:34 | PFT_ITS ---
Flows: FEV1: 131 % of predicted at 2.92 L FVC: 122 % of predicted at 2.82 L FEV1/FVC: 85 % Bronchodilator response: Absent Volumes: Total lung capacity: 104 % of predicted at 4.91 L Residual volume: 88 % of predicted at 1.49 L Slow vital capacity: 113 % of predicted at 3.42 L Expiratory reserve volume: 164 % of predicted at 1.18 L Diffusion capacity: Normal Impression: No obstructive or restrictive ventilatory defect. No bronchodilator response. Normal pulmonary function test. MTDD
== END 2023-12-28 10:56 | disposition home or self-care (01) ==
LOC: HO.RESP 10:55
PROVIDERS: PCP Internal Medicine; Visit Provider Hospitalist
DX: J45.909 Unspecified asthma, uncomplicated (principal)
CPT/HCPCS: 94010; 94727; 94729

== ENCOUNTER → 2023-12-28 11:34 | Outpatient (BNV) | payer MEDICARE, OTHER, MEDICAID, SELFPAY | PROVIDERS: PCP Internal Medicine; Visit Provider Internal Medicine Pulmonary Disease | DX: J45.909 Unspecified asthma, uncomplicated (principal) | CPT/HCPCS: 94060; 94727; 94729 ==

== ENCOUNTER 2024-01-28 13:19 | Outpatient (AMB) | payer MEDICARE, OTHER, MEDICAID, SELFPAY ==
[2024-01-28 13:26] VITALS: BP 124/70; PULSE 76; O2SAT 100; BMI 22.4
--- NOTE | 2024-01-28 13:26 | A.OFFVIS_ITS ---
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: No Allergies azithromycin Allergy (Severe, Verified 01/28/24 13:29) Palpitations ciprofloxacin [From CIPRO] Allergy (Severe, Verified 01/28/24 13:29) Palpitations Iodinated Contrast Media [IODINATED CONTRAST MEDIA] Allergy (Unknown, Verified 01/28/24 13:29) RASH levofloxacin [From LEVAQUIN] Allergy (Unknown, Verified 01/28/24 13:29) DIFFICULTY BREATHING moxifloxacin [From AVELOX] Allergy (Unknown, Verified 01/28/24 13:29) DIARRHEA venlafaxine [From EFFEXOR] Allergy (Unknown, Verified 01/28/24 13:29) SWELLING amoxicillin [From Augmentin] Adverse Reaction (Severe, Verified 01/28/24 13:29) Diarrhea clavulanic acid [From Augmentin] Adverse Reaction (Severe, Verified 01/28/24 13:29) Diarrhea HPI HPI Comments History of Present Illness Details The patient is a 63-year-old woman with 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 Currently, the patient has been evaluated also for lower extremity neuropathy. She is scheduled to undergo a biopsy in the coming days. In the meantime she continues to have significant shortness of breath. Moderate to severe at times. Usually worse when she takes a deep breath in. She has been using her inhalers and date to help some. In the office with did to a flow volume loop, spirometry. No evidence of any obstructive ventilatory defects. However she did have some fluttering of the flows during the inspiratory component suggesting the possibility of vocal cord dysfunction. She has had evidence of vocal cord dysfunction on previous bronchoscopy. She is also not using her CPAP because she is concerned every infections her sinuses. She is complaining of some sinus pressure and is also complaining of some chest pressure along with wheezing and cough. We did review her blood work that she had recently demonstrating again a low IgA level, 44. At this time in due to her recurrent infections in the sinuses in the respiratory tract is not on reasonable for her to be seen by immunology. I will arrange that. In the meantime she is going to continue her respiratory therapy. She is going to start budesonide for couple weeks to see if there is improvement. She continues using her nasal sprays. In regards of her asthma appears to be better controlled on the Alvesco 2 puffs twice a day. She continue using this for now. She needs a refill. We did review her x-rays that she had recently in the hospital. Initially she went and was tested for COVID-19 which came back negative. However the x-ray demonstrated a slight nodular opacity in her right mid lung. She does have a history of cancer in the family so she is became very concerned. We did look at previous CT scans that she has had back in 2018 at [facility], but, she did not have any findings therapy. Therefore request of CT scan of the chest was address the abnormal finding on the x-ray. To note the final read in the x-ray did not mention the opacity that was present. She did undergo a CT chest to assess her abnornal CXR with demonstrated minimal apical scarring. Does have mediastinal LN which appear to be stable for couple years. No evidence of any nodules. Does have some post operative changes. 07/22/2023 the patient is here for sick visit. Apparently for the last few days she has been complaining of sinus congestion and headache. She has complained of a postnasal drip and some hoarseness. Ultimately she started developing worsening cough now with some chest tightness and heaviness. [id number] s everity. Denies any fevers or chills although she feels fatigued. We did swab her for flu, COVID and RSV. It did come back negative. No significant wheezing on examination. The patient also to note was diagnosed with osteoporosis. Therefore, we have to very careful with any steroid therapy. Will start the patient on doxycycline and also will start her on budesonide nebs to see if that can help decrease the chest tightness without the need of prednisone. 11/04/2023 the patient is here for a pulm onary follow-up visit. Seems to be having worsening symptoms with her obstructive airway disease. She was recently evaluated by 1 of my colleagues for an asthma exacerbation. She was treated with prednisone and antibiotics. The patient has been responding fairly to the current respiratory regimen. Although sometimes the Xopenex as and help her. I did advise that she can always use additional the puffs if needed. The patient has not had pulmonary function studies and sometimes therefore will request a repeat study at this time. The patient has been getting allergy shots now for some time. Will go ahead and request a repeat blood work including a CBC with differential to assess her eosinophils and also an IgE count to see if she will benefit from biologic therapy. The patient may be a good candidate for either Dupixent or Xolair for underlying respiratory symptoms. Specially since she is not responding fully to the maximum respiratory therapy provided. The patient has a hard time tolerating long-acting beta agonist so therefore we need to avoid dose medications. She also had an allergic reaction to the doxycycline. She also has allergies to multiple other antibiotics. She does have an comb winder and she needs to discuss possibly undergoing a antibiotic challenge to see when she is really allergic to or in or adverse reactions to. Therefore, the patient will undergo blood work continue with current respiratory therapy in her PFTs and will return for follow-up visit. Will discuss additional management such as with biologics that time. 09/27/2024 the patient is here for pulmo nary follow-up visit. She continues to have chest pressure and chest discomfort along with shortness a breath. She has been on her respiratory medication Alvesco and also Spiriva without significant improvement. The patient also has been followed closely by allergy immunology. She did undergo blood work the last time her IgE level was low and also eosinophils absolute count was only 200. therefore biologic therapies really not great option for her. In addition to that she did undergo a chest x-ray which I personally reviewed demonstrating no acute disease and she also underwent pulmonary function studies that were reviewed. As far as the numbers look completely normal. However, the flow volume loop appears to have some plateauing of the expiratory limb suggesting some degree intrathoracic dynamic obstruction. She does have a history of open heart surgery for her congenital heart disease and also has significant pectus excavatum. Many years ago we did perform a bronchoscopy. I remember some tortuosity of the trachea. At this point though I do believe getting a CT scan to better address her tracheal anatomy with a dynamic exhalation CT scan to assess any potential extrinsic or intrinsic collapsibility of the trachea to explain the abnormal PFTs in the ongoing chest pain. In the meantime I do have a sample of a long-acting muscarinic antagonist that she can use via the nebulizer and she is going to hold Spiriva for now. She will continue the Alvesco as is the only 1 that does not cause her to have significant thrush. She does have a history of palpitations and tachyarrhythmias so therefore will hold off on the use of a long-acting beta agonist or even a short-acting beta agonist if we can avoided to minimize her cardiac issues the patient is following up closely with allergy immunology. Also I am sure to send this message at some point we will communicate to make sure that we are discussing the patient in detail. [facility] Medical History (Updated 01/28/24 @ 20:09 by Ousmane Saucedo MD) Bronchitis Oral candidiasis Chronic rhinitis Palpitation Sinusitis Cough HOLLI (obstructive sleep apnea) Pectus excavatum Asthma GERD (gastroesophageal reflux disease) Family History Brother Lung cancer Social History (Updated 10/02/23 @ 14:58 by Mariella Kunz LPN) Patient Tobacco Use Status: Former Tobacco user Tobacco use type: Cigarette Years Smoked: 40 years Review of Systems Const Reports fatigue, Denies fever(s) and Denies night sweats ENT Reports Normal hearing present, Denies change in voice, Denies lip swelling, Reports mouth pain, Reports nasal congestion, Reports nasal discharge, Reports odynophagia, Reports sinus pain, Reports sinus pressure, Reports sore throat and Denies tongue swelling Card Reports chest pain and Reports dyspnea Resp Denies change in phlegm color, Reports chest congestion, Reports cough and Reports dyspnea GI Reports abdominal pain, Denies diarrhea, Reports nausea, Reports odynophagia and Denies hematemesis Musc Denies no additional complaints Neuro Reports Normal hearing present and Denies Neuro-related abnormal movements Psych Denies no additional complaints Endo Reports fatigue Ricardo/Lymph Denies easy bleeding and Denies lymphadenopathy Aller/Immun Denies lip swelling and Denies tongue swelling Physical Exam Vital Signs: Last Vital Signs Pulse 76 01/28/24 13:26 BP 124/70 01/28/24 13:26 Pulse Ox 100 01/28/24 13:26 Oxygen Delivery Method Room Air 01/28/24 13:26 BMI result Body Mass Index 22.4 Const General: cooperative, no acute distress, well developed and alert Orientation/consciousness: patient oriented x3 Limitations: no limitations HEENT Head: Yes normal to inspection, Yes normocephalic and Yes atraumatic Ears: hearing grossly normal bilaterally and external ears normal Eyes General: appearance normal, both eyes and all related structures Eyelids: Yes eyelids normal Sclerae: sclerae normal EOM: EOMs intact bilaterally Neck Neck: Yes normal visual inspection and Yes no lymphadenopathy Lymphatic: no lymphadenopathy noted Chest Chest palpation & inspection: normal inspection of the chest Resp Other: poor air movement bilaterally with expiratory wheezes, improved after nebulizer. Effort & Inspection: normal respiratory effort and able to speak in complete sentences Auscultation: no rales, no rhonchi, no wheezes and diminished lung sounds Cardio Jugular venous distension: no JVD Rate: regular rate Rhythm: regular rhythm Skin Other: warm, dry General skin exam: no rashes or lesions noted Neuro General: patient oriented x3 Cranial nerves: Yes Normal hearing present Cognition (Neuro): normal cognition Gait exam (Neuro): Normal gait present Extrem General: Yes normal to inspection, Yes capillary refill normal, Yes no clubbing, cyanosis or edema and Yes no pedal edema Psych Appearance: grossly normal and well kempt Speech and movement: Normal speech and movement present and Clear speech present Affect: normal affect Attitude: cooperative Thought process: Normal thought process present Thought content: Normal thought content present Insight: Good insight present (Psych) Judgement: Good judgement present (Psych) Assessment & Plan Assessment & Plan (1) Asthma: Code(s): J45.909 - Unspecified asthma, uncomplicated Qualifiers: Asthma complication type: uncomplicated Asthma persistence: persistent Asthma severity: moderate Qualified Code(s): J45.40 - Moderate persistent asthma, uncomplicated (2) Cough: Code(s): R05 - Cough Qualifiers: Cough type: chronic Qualified Code(s): R05.3 - Chronic cough (3) Chronic rhinitis: Code(s): J31.0 - Chronic rhinitis (4) HOLLI (obstructive sleep apnea): Code(s): G47.33 - Obstructive sleep apnea (adult) (pediatric) (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 impaired she does carry diagnosis of asthma and also significant allergies current getting allergy shots. However, she also has a history of congenital heart disease status post cardiac surgery and mediastinal changes along with this spectrum excavatum that likely contributing to some degree of her dyspnea symptoms. Based on the plateauing of the expiratory limb suggest the possibility of an intrathoracic dynamic obstruction primarily when she is exhaling which corresponds with her history. REC hold Spiriva Trial Yulperi neb daily continue Alvesco ASHUTOSH as needed No LABA due cardiac issues continue allergy shots Consider Biologics, but Eos # and IgE are ok ?[place]. Holding off for now. 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
== END 2024-01-28 14:04 | disposition home or self-care (01) ==
PROVIDERS: PCP Internal Medicine; Visit Provider Hospitalist
DX: J45.40 Moderate persistent asthma, uncomplicated (principal); R05.3 Chronic cough; J31.0 Chronic rhinitis; G47.33 Obstructive sleep apnea (adult) (pediatric); Q32.1 Other congenital malformations of trachea
CPT/HCPCS: 99214

== ENCOUNTER → 2024-01-28 13:19 | Outpatient (BNVA) | payer MEDICARE, OTHER, MEDICAID, SELFPAY | PROVIDERS: PCP Internal Medicine; Visit Provider Hospitalist | DX: J45.40 Moderate persistent asthma, uncomplicated (principal); J31.0 Chronic rhinitis; G47.33 Obstructive sleep apnea (adult) (pediatric); R05.3 Chronic cough; Q32.1 Other congenital malformations of trachea | CPT/HCPCS: 99212 ==

== ENCOUNTER 2025-03-31 10:16 | Outpatient (AMB) | payer MEDICARE, OTHER, SELFPAY ==
[2025-03-31 10:19] VITALS: BP 102/60; PULSE 85; O2SAT 95; BMI 23.7
--- NOTE | 2025-03-31 10:19 | A.OFFVIS_ITS ---
Vital Signs 03/31/25 10:19 Height 5 ft 1 in Weight 125 lb 10.616 oz BMI 23.7 BP 102/60 Blood Pressure Location Rt brachial Position Sitting Pulse 85 Pulse Source Pulse Oximeter Pulse Oximetry (%) 95 Oxygen Delivery Method Room Air Intake Visit Reasons: Asthma Allergies azithromycin Allergy (Severe, Verified 03/31/25 10:23) Palpitations ciprofloxacin [From CIPRO] Allergy (Severe, Verified 03/31/25 10:23) Palpitations Iodinated Contrast Media [IODINATED CONTRAST MEDIA] Allergy (Unknown, Verified 03/31/25 10:23) RASH levofloxacin [From LEVAQUIN] Allergy (Unknown, Verified 03/31/25 10:23) DIFFICULTY BREATHING moxifloxacin [From AVELOX] Allergy (Unknown, Verified 03/31/25 10:23) DIARRHEA venlafaxine [From EFFEXOR] Allergy (Unknown, Verified 03/31/25 10:23) SWELLING amoxicillin [From Augmentin] Adverse Reaction (Severe, Verified 03/31/25 10:23) Diarrhea clavulanic acid [From Augmentin] Adverse Reaction (Severe, Verified 03/31/25 10:23) Diarrhea HPI Comments Details: The patient is a 64 year-old woman with 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 Currently, the patient has been evaluated also for lower extremity neuropathy. She is scheduled to undergo a biopsy in the coming days. In the meantime she continues to have significant shortness of breath. Moderate to severe at times. Usually worse when she takes a deep breath in. She has been using her inhalers and date to help some. In the office with did to a flow volume loop, spirometry. No evidence of any obstructive ventilatory defects. However she did have some fluttering of the flows during the inspiratory component suggesting the possibility of vocal cord dysfunction. She has had evidence of vocal cord dysfunction on previous bronchoscopy. She is also not using her CPAP because she is concerned every infections her sinuses. She is complaining of some sinus pressure and is also complaining of some chest pressure along with wheezing and cough. We did review her blood work that she had recently demonstrating again a low IgA level, 44. At this time in due to her recurrent infections in the sinuses in the respiratory tract is not on reasonable for her to be seen by immunology. I will arrange that. In the meantime she is going to continue her respiratory therapy. She is going to start budesonide for couple weeks to see if there is improvement. She continues using her nasal sprays. In regards of her asthma appears to be better controlled on the Alvesco 2 puffs twice a day. She continue using this for now. She needs a refill. We did review her x-rays that she had recently in the hospital. Initially she went and was tested for COVID-19 which came back negative. However the x-ray demonstrated a slight nodular opacity in her right mid lung. She does have a history of cancer in the family so she is became very concerned. We did look at previous CT scans that she has had back in 2018 at [facility], but, she did not have any findings therapy. Therefore request of CT scan of the chest was address the abnormal finding on the x-ray. To note the final read in the x-ray did not mention the opacity that was present. She did undergo a CT chest to assess her abnornal CXR with demonstrated minimal apical scarring. Does have mediastinal LN which appear to be stable for couple years. No evidence of any nodules. Does have some post operative changes. 07/22/2023 the patient is here for sick visit. Apparently for the last few days she has been complaining of sinus congestion and headache. She has complained of a postnasal drip and some hoarseness. Ultimately she started developing worsening cough now with some chest tightness and heaviness. [id number] severity. Denies any fevers or chills although she feels fatigued. We did swab her for flu, COVID and RSV. It did come back negative. No significant wheezing on examination. The patient also to note was diagnosed with osteoporosis. Therefore, we have to very careful with any steroid therapy. Will start the patient on doxycycline and also will start her on budesonide nebs to see if that can help decrease the chest tightness without the need of prednisone. 11/04/2023 the patient is here for a pulmonary follow-up visit. Seems to be having worsening symptoms with her obstructive airway disease. She was recently evaluated by 1 of my colleagues for an asthma exacerbation. She was treated with prednisone and antibiotics. The patient has been responding fairly to the current respiratory regimen. Although sometimes the Xopenex as and help her. I did advise that she can always use additional the puffs if needed. The patient has not had pulmonary function studies and sometimes therefore will request a repeat study at this time. The patient has been getting allergy shots now for some time. Will go ahead and request a repeat blood work including a CBC with differential to assess her eosinophils and also an IgE count to see if she will benefit from biologic therapy. The patient may be a good candidate for either Dupixent or Xolair for underlying respiratory symptoms. Specially since she is not responding fully to the maximum respiratory therapy provided. The patient has a hard time tolerating long-acting beta agonist so therefore we need to avoid dose medications. She also had an allergic reaction to the doxycycline. She also has allergies to multiple other antibiotics. 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 Therefore, the patient will undergo blood work continue with current respiratory therapy in her PFTs and will return for follow-up visit. Will discuss additional management such as with biologics that time. 09/27/2024 the patient is here for pulmonary follow-up visit. She continues to have chest pressure and chest discomfort along with shortness a breath. She has been on her respiratory medication Alvesco and also Spiriva without significant improvement. The patient also has been followed closely by allergy immunology. She did undergo blood work the last time her IgE level was low and also eosinophils absolute count was only 200. therefore biologic therapies really not great option for her. In addition to that she did undergo a chest x-ray which I personally reviewed demonstrating no acute disease and she also underwent pulmonary function studies that were reviewed. As far as the numbers look completely normal. However, the flow volume loop appears to have some plateauing of the expiratory limb suggesting some degree intrathoracic dynamic obstruction. She does have a history of open heart surgery for her congenital heart disease and also has significant pectus excavatum. Many years ago we did perform a bronchoscopy. I remember some tortuosity of the trachea. At this point though I do believe getting a CT scan to better address her tracheal anatomy with a dynamic exhalation CT scan to assess any potential extrinsic or intrinsic collapsibility of the trachea to explain the abnormal PFTs in the ongoing chest pain. In the meantime I do have a sample of a long-acting muscarinic antagonist that she can use via the nebulizer and she is going to hold Spiriva for now. She will continue the Alvesco as is the only 1 that does not cause her to have significant thrush. She does have a history of palpitations and tachyarrhythmias so therefore will hold off on the use of a long-acting beta agonist or even a short-acting beta agonist if we can avoided to minimize her cardiac issues the patient is following up closely with allergy immunology. Also I am sure to send this message at some point we will communicate to make sure that we are discussing the patient in detail. 03/31/2025 the patient is here for pulmonary follow-up visit. She continues have significant allergy symptoms affecting her significant chronic rhinitis and also affecting her breathing. She continues use respiratory therapy as prescribed. She can not tolerate long-acting beta agonist because of tremulousness and palpitations in her cardiac history. Therefore she continues on the inhaled cortical steroids and long-acting muscarinic antagonist. This only provides her partial response to therapy. She continues to get allergy shots through Allergy and immunology. But she continues to be symptomatic. Specially in the springtime now and also in the fall. She is already optimized with her nasal therapy. based on significant allergic asthma and allergic chronic rhinitis patient will be a good candidate for biologic therapy. Will go ahead and request additional blood work at this time to measure her IgE and also eosinophil count. I do believe Dupixent or Fasenra will be very good options for her. Will decide based on the laboratory data. [facility] Medical History (Updated 03/31/25 @ 21:07 by Ousmane Saucedo MD) Dyspnea Bronchitis Oral candidiasis Chronic rhinitis Palpitation Sinusitis Cough HOLLI (obstructive sleep apnea) Pectus excavatum Asthma GERD (gastroesophageal reflux disease) Family History Brother Lung cancer Social History Patient Tobacco Use Status: Former Tobacco user Tobacco use type: Cigarette Years Smoked: 40 years Review of Systems Const Reports fatigue, Denies fever(s) and Denies night sweats ENT Reports Normal hearing present, Denies change in voice, Denies lip swelling, Reports mouth pain, Reports nasal congestion, Reports nasal discharge, Reports odynophagia, Reports sinus pain, Reports sinus pressure, Reports sore throat and Denies tongue swelling Card Reports chest pain and Reports dyspnea Resp Denies change in phlegm color, Reports chest congestion, Reports cough, Reports dyspnea and Reports wheezing GI Reports abdominal pain, Denies diarrhea, Reports nausea, Reports odynophagia and Denies hematemesis Musc Denies no additional complaints Neuro Reports Normal hearing present and Denies Neuro-related abnormal movements Psych Denies no additional complaints Endo Reports fatigue Ricardo/Lymph Denies easy bleeding and Denies lymphadenopathy Aller/Immun Denies lip swelling, Denies tongue swelling and Reports wheezing Physical Exam Vital Signs: Last Vital Signs Pulse 85 03/31/25 10:19 BP 102/60 03/31/25 10:19 Pulse Ox 95 03/31/25 10:19 Oxygen Delivery Method Room Air 03/31/25 10:19 BMI result Body Mass Index 23.7 Const General: cooperative, no acute distress, well developed and alert Orientation/consciousness: patient oriented x3 Limitations: no limitations HEENT Head: Yes normal to inspection, Yes normocephalic and Yes atraumatic Ears: hearing grossly normal bilaterally and external ears normal Eyes General: appearance normal, both eyes and all related structures Eyelids: Yes eyelids normal Sclerae: sclerae normal EOM: EOMs intact bilaterally Neck Neck: Yes normal visual inspection and Yes no lymphadenopathy Lymphatic: no lymphadenopathy noted Chest Chest palpation & inspection: normal inspection of the chest Resp Other: poor air movement bilaterally with expiratory wheezes, improved after nebulizer. Effort & Inspection: normal respiratory effort, able to speak in complete sentences and prolonged expiratory phase Auscultation: no rales, no rhonchi, no wheezes and diminished lung sounds Cardio Jugular venous distension: no JVD Rate: regular rate Rhythm: regular rhythm Skin Other: warm, dry General skin exam: no rashes or lesions noted Neuro General: patient oriented x3 Cranial nerves: Yes Normal hearing present Cognition (Neuro): normal cognition Gait exam (Neuro): Normal gait present Extrem General: Yes normal to inspection, Yes capillary refill normal, Yes no clubbing, cyanosis or edema and Yes no pedal edema Psych Appearance: grossly normal and well kempt Speech and movement: Normal speech and movement present and Clear speech present Affect: normal affect Attitude: cooperative Thought process: Normal thought process present Thought content: Normal thought content present Insight: Good insight present (Psych) Judgement: Good judgement present (Psych) Assessment & Plan Assessment & Plan (1) Asthma: Code(s): J45.909 - Unspecified asthma, uncomplicated Category: Medical Qualifiers: Asthma complication type: uncomplicated Asthma persistence: persistent Asthma severity: moderate Qualified Code(s): J45.40 - Moderate persistent asthma, uncomplicated (2) Cough: Code(s): R05 - Cough Category: Medical Qualifiers: Cough type: chronic Qualified Code(s): R05.3 - Chronic cough (3) Chronic rhinitis: Code(s): J31.0 - Chronic rhinitis Category: Medical (4) HOLLI (obstructive sleep apnea): Code(s): G47.33 - Obstructive sleep apnea (adult) (pediatric) Category: Medical (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 impaired she does carry diagnosis of asthma and also significant allergies current getting allergy shots. However, she also has a history of congenital heart disease status post cardiac surgery and mediastinal changes along with this spectrum excavatum that likely contributing to some degree of her dyspnea symptoms. Code(s): R06.00 - Dyspnea, unspecified Category: Medical Qualifiers: Dyspnea type: dyspnea on exertion Qualified Code(s): R06.09 - Other forms of dyspnea Plan REC Spiriva continue Alvesco ASHUTOSH as needed No LABA due cardiac issues continue allergy shots bloodwork start Dupixent. Fasenra may also be a good option F/U 3-4 months Orders: Orders Complete Blood Count Auto Diff Today J01.90 - Acute sinusitis, unspecified, J31.0 - Chronic rhinitis, J45.40 - Moderate persistent asthma, uncomplicated Basic Metabolic Panel Today J01.90 - Acute sinusitis, unspecified, J31.0 - Chronic rhinitis, J45.40 - Moderate persistent asthma, uncomplicated Erythrocyte Sedimentation Rate Today J01.90 - Acute sinusitis, unspecified, J31.0 - Chronic rhinitis, J45.40 - Moderate persistent asthma, uncomplicated Immunoglobulin E Today J01.90 - Acute sinusitis, unspecified, J31.0 - Chronic rhinitis, J45.40 - Moderate persistent asthma, uncomplicated Immunoglobulins,IgG IgA IgM Today J01.90 - Acute sinusitis, unspecified, J31.0 - Chronic rhinitis, J45.40 - Moderate persistent asthma, uncomplicated Hypersensitive Pneumonitis Prf Today J01.90 - Acute sinusitis, unspecified, J31.0 - Chronic rhinitis, J45.40 - Moderate persistent asthma, uncomplicated, R91.8 - Other nonspecific abnormal finding of lung field Coding Level of Care Code Est Pt Level 4 (55144) Complex EM visit Add On G2211 Diagnoses Moderate persistent asthma without complication J45.40 Asthma complication type: uncomplicated Asthma persistence: persistent Asthma severity: moderate Chronic cough R05.3 Cough type: chronic Chronic rhinitis J31.0 HOLLI (obstructive sleep apnea) G47.33 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
--- OUTSIDE RECORDS SUMMARY | 2025-03-31 11:29 | XMS_ITS | Clinical Summary ---
Author Organization [facility] Address [address] [place] [address] Phone Care Team Providers Care Security Shift Supervisor Name Role Phone Kayode Sanchez MD Primary Care Provider [phone] Allergies Active Allergy Reactions Criticality Noted Date Comments Clarithromycin 12/18/2016 Doxycycline Rash 02/25/2025 Fluconazole Rash 12/18/2016 Iodinated Contrast Media Rash 12/18/2016 Latex 02/25/2025 If she smells it-makes her short of breath Levofloxacin High 12/18/2016 Other reaction(s): Shortness of breath Moxifloxacin High 12/18/2016 Other reaction(s): Shortness of breath Procaine Palpitations 12/18/2016 Venlafaxine Other 12/18/2016 Facial tremors Medications polyethylene glycol (Golytely) 236-22.74-6.74 -5.86 gram solution Take 4L by mouth once for one dose. May substitue any PEG. Starting at 6PM the night before your procedure drink 1 8oz glasses at your own pace until you complete half of the gallon. Finish 2nd half of the gallon 5 hours before your procedure. 4000 mL 02/19/20 25 Active albuterol 2.5 mg /3 mL (0.083 %) nebulizer solution Inhale 3 mL (2.5 mg total) by mouth. 06/07/20 19 Active aspirin 81 mg EC tablet Take 1 tablet (81 mg total) by mouth 1 (one) time each day. 03/05/20 24 Active azelastine (ASTELIN) 137 mcg (0.1 %) nasal spray INSTILL 1-2 SPRAYS TO EACH NOSTRIL TWICE DAILY NEEDED 11/05/20 24 Active budesonide (PULMICORT) 0.5 mg/2 mL nebulizer solution INHALE THE CONTENTS OF 1 VIAL VIA NEBULIZER ONCE DAILY FOR 30 DAYS (J45.40) Active cetirizine (ZyrTEC) 10 mg capsule Take 1 capsule (10 mg total) by mouth 1 (one) time each day. Active cholecalciferol (VITAMIN D-3) 25 mcg (1,000 unit) capsule Take by mouth. A ctive levalbuterol (XOPENEX HFA) 45 mcg/actuation inhaler Inhale 2 puffs by mouth every 6 (six) hours if needed for wheezing. 10/02/20 24 Active Alvesco 160 mcg/actuation inhaler Inhale 2 puffs by mouth 2 (two) times a day. Active CeleXA 20 mg tablet Take 1 tablet (20 mg total) by mouth 1 (one) time each day. 11/27/20 24 Active clonazePAM (KlonoPIN) 1 mg tablet Take 1 tablet (1 mg total) by mouth at bedtime as needed. at bedtime Active EPINEPHrine (EpiPen 2-Ben) 0.3 mg/0.3 mL injection Inject as directed See administration instructions. Active famotidine (PEPCID) 20 mg tablet Take 1 tablet (20 mg total) by mouth 2 (two) times a day. 01/11/20 25 Active gabapentin (NEURONTIN) 600 mg tablet Take 1 tablet (600 mg total) by mouth 2 (two) times a day. 01/19/20 25 Active hydrocortisone (ANUSOL-HC) 25 mg suppository UNWRAP AND INSERT 1 SUPPOSITORY INTO RECTUM AT BEDTIME 01/25/20 25 Active levalbuterol (XOPENEX) 1.25 mg/3 mL nebulizer solution INHALE 3 ML TWICE A DAY 10/01/20 24 Active montelukast (SINGULAIR) 10 mg tablet Take 1 tablet (10 mg total) by mouth at bedtime. Active omeprazole (PriLOSEC) [address] capsule Take 1 capsule (20 mg total) by mouth 1 (one) time each day in the morning. 12/06/19 25 Active Trulance 3 mg tablet Take 1 tablet (3 mg total) by mouth 1 (one) time each day if needed. 11/14/20 24 Active Gavilax 17 gram/dose oral powder MIX 17GM WITH 8 OUNCES OF FLUID ORALLY ONCE A DAY 09/16/20 24 Active Spiriva Respimat 2.5 mcg/actuation inhalation spray INHALE 2 PUFFS BY MOUTH DAILY FOR 30 DAYS Active tretinoin (RETIN-A) 0.1 % cream APPLY TO FACE AT BEDTIME TOPICALLY 04/07/20 24 Active saccharomyces boulardii (FLORASTOR) 250 mg capsule Take by mouth. Acti ve naltrexone 4.5 mg capsule take 1 capsule by mouth daily 02/09/20 25 Active methylcellulose oral powder Take by mouth 1 (one) time each day. citrucel Active calcium carbonate-vitam in D3 1,000 mg-20 mcg (800 unit) tablet Take by mouth. Ac tive Encounters Date Type Department Care Team Description 03/05/2025 Telephone Gastroenterology - [address] [place] [address] Genny Zamora MA Results 03/04/2025 1:11 PM EDT Anesthesia Event [facility] [address] [place] [phone] Frank Anne MD 03/04/2025 12:03 PM EDT - 03/04/2025 11:59 PM EDT Hospital Encounter [facility] [address] [place] [phone] Hansel Turner MD Claudio, Raymund, CRNA Saliga, Jesse L, MD Colon cancer screening Discharge Disposition: Home or Self Care 02/11/2025 Telephone Gastroenterology - [place] [address] [facility] 175 [facility] [address] [place] [address] Suzette Martinez LPN med review (Colonoscopy and EGD on 03/04/25) 01/26/2025 Telephone Gastroenterology - 299 [facility] 299 [facility] [address] [place] [phone] Hansel Turner MD Advice Only (/) 01/12/2025 Telephone Gastroenterology - 299 [place] 299 [facility] [address] [place] [phone] Hansel Turner MD 01/01/2025 Telephone Gastroenterology - [address] [place] [address] [phone] Hansel Turner MD 01/01/2025 Telephone Gastroenterology - [address] [phone] Hansel Turner MD from Last 3 Months Surgical History Surgery Date Site/Laterality Comments TONSILLECTOMY PROCEDURE: HISTORICAL TONSILLECTOMY EYE SURGERY PROCEDURE: HISTORICAL EYE SURGERY OTHER SURGICAL HISTORY PROCEDURE: EXTRACTION ERUPTED TOOTH/EXR CARDIAC SURGERY CAROTID CARDIAC SURGERY DIVERTICULUM OF KOMERELL Medical History Medical History Date Comments Depression 10/05/2017 DX:Depression HOLLI (obstructive sleep apnea) 10/05/2017 DX :HOLLI (obstructive sleep apnea) COPD (chronic obstructive pu lmonary disease) ([facility] V24, [facility] V28) 12/03/2017 DX:COPD (chronic o bstructive pulmonary disease) ([facility]) 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 ([facility] V24, [facility] V28) 12/03/2017 DX:Mixed simple and mucopurulent chronic bronchitis ([facility]) Allergic rhinitis 05/07/2017 DX:Allergic rh initis Asthma 05/07/2017 DX:Asthma Cyst of ovary 01/21/2017 DX:Cyst of ovary Gastroesophageal reflux disease 03/04/2017 DX:Gastroesophageal reflux disease Hemangioma 01/21/2017 DX:Hemangioma Diverticulum of Kommerell Brain aneurysm Social History Tobacco Use Types Packs/Day Years Used Date Smoking Tobacco: Former Cigarettes Smokeless Tobacco: Never Alcohol Use Standard Drinks/Week Comments Yes 0 (1 standard drink = 0.6 oz pur e alcohol) RARELY Interpersonal Safety Answer Date Record ed Physical Abuse 03/04/2025 Verbal Abuse 03/04/2025 Comments Unknown Sex and Gender Information Value Date Recorded Sex Assigned at Female 03/03/2025 9:20 AM EDT Legal Sex Female 3:22 AM EST Gender Identity Female 03/03/2025 9:20 AM EDT Sexual Orientation Straight 03/03/2025 9: 20 AM EDT Obstetrics History Last Filed Vital Signs Vital Sign Reading Time Taken Comments Blood Pressure 98/71 03/04/2025 1:51 PM EDT Pulse 89 03/04/2025 1:51 PM EDT Temperature 36.5 ??C (97.7 ??F) 03/04/2025 12:56 PM E DT Respiratory Rate 16 03/04/2025 1:51 PM EDT Oxygen Saturation 100% 03/04/2025 1:51 PM EDT Inhaled Oxygen Concentration - - Weight 55.3 kg (122 lb) 03/04/2025 12:56 PM EDT Height 157.5 cm (5' 2 ) 03/04/2025 12:56 PM EDT Body Mass Index 22.31 03/04/2025 12:56 PM EDT Plan of Treatment Health Maintenance Due Date Last Done Comments Breast Cancer Screening 1960 Pneumococcal Vaccine: 50+ Years (1 of 2 - PCV) 1978 Pneumococcal Vaccine: Pediatrics (0 to 5 Years) and At-Risk Patients (6 to 64 Years) (1 of 2 - PCV) 1978 Cervical Cancer Screening: Pap Smear 1980 Zoster Vaccines (1 of 2) 2009 RSV Immunization Adult Patients (1 - Risk 60-74 years 1-dose series) 2019 Depression Screening 11/04/2022 Hepatitis C Screening 11/04/2022 Medicare Annual Wellness Visit 11/04/2022 Osteoporosis Screening (Bone Density Screening) 11/04/2022 Social Influencers of Health Screening 11/04/2022 COVID-19 Vaccine ( season) 2025 11/04/2024, 10/11/2022, 05/19/2022, Additional history exists Falls Risk Assessment 03/04/2026 03/04/2025 DTaP,Tdap,and Td Vaccines (2 - Td or Tdap) 01/30/2034 01/31/2024 Colorectal Cancer Screening: Colonoscopy 03/04/2035 03/04/2025, 05/03/2020 Hepatitis A Vaccines Aged Out 01/13/2007, 02/06/20 06 No longer eligible based on patient's age to complete this topic Influenza Vaccine Completed 08/18/2024, , 08/24/2022, Additional history exists HIB Vaccines Aged Out No longer eligi ble based on patient's age to complete this topic HPV Vaccines Aged Out No longer eligi ble based on patient's age to complete this topic Hepatitis B Vaccines Aged Out No long er eligible based on patient's age to complete this topic IPV Vaccines Aged Out No longer eligi ble based on patient's age to complete this topic MMR Vaccines Aged Out No longer eligi ble based on patient's age to complete this topic Meningococcal ACWY Vaccine Aged Out N o longer eligible based on patient's age to complete this topic Meningococcal B Vaccine Aged Out No l onger eligible based on patient's age to complete this topic RSV Immunization Patients Under 20 months Aged Out No longer eligible based on patient's age to complete this topic Varicella Vaccines Aged Out No longer eligible based on patient's age to complete this topic Procedures Procedure Name Priority Date/Time Associated Diagnosis Comments COLONOSCOPY Routine 03/04/2025 1:36 PM EDT Colon cancer screening EGD Routine 03/04/2025 1:36 PM EDT Colon cancer screening TISSUE EXAM Routine 03/04/2025 1:28 PM EDT Colon cancer screening from Last 3 Months Results * COLONOSCOPY Anesthesia - MAC; [facility] ENDOSCOPY (03/04/2025 1:36 PM EDT) Anatomical Region Laterality Modality Endoscopy 03/04/2025 1:09 PM EDT Impressions 03/04/2025 1:31 PM EDT - One 5 mm polyp in the distal rectum, removed with a ? cold snare. Resected and retrieved. ? - Diverticulosis in the sigmoid colon. ? - The examination was otherwise normal on direct and ? retroflexion views. Recommendation: ?- Await pathology results. ? - Repeat colonoscopy in 5 years for surveillance. Narrative 03/04/2025 1:31 PM EDT [facility] GI Patient Name: Flores Oneil Procedure Date: 03/04/2025 1:09 PM Date of : 1960 Age: 64 Room: ROOM 16 Gender: Female Note Status: Finalized Attending MD: Hansel Turner MD, Procedure Date No Time: 03/04/2025 Procedure: ? Colonoscopy Indications: ? High risk colon cancer surveillance: Personal history ? of colonic polyps Providers: ? Hansel Turner MD Referring MD: ?Hansel Turner MD Medicines: ? Propofol per Anesthesia Complications: ? No immediate complications. Estimated Blood Loss: ? Estimated blood loss: none. Procedure: ? Pre-Anesthesia Assessment: ? - ASA Grade Assessment: II - A patient with mild ? systemic disease. ? After I obtained informed consent, the scope was ? passed under direct vision. Throughout the procedure, ? the patient's blood pressure, pulse, and oxygen ? saturations were monitored continuously.The Olympus ? Pediatric Colonoscope was introduced through the anus ? and advanced to the cecum, identified by appendiceal ? orifice and ileocecal valve. The colonoscopy was ? performed without difficulty. The patient tolerated ? the procedure well. The quality of the bowel ? preparation was good. Findings: ?The perianal and digital rectal examinations were ? normal. ? A 5 mm polyp was found in the distal rectum. The polyp ? was sessile. The polyp was removed with a cold snare. ? Resection and retrieval were complete. ? Multiple diverticula were found in the sigmoid colon. ? The exam was otherwise without abnormality on direct ? and retroflexion views. Procedure Code(s): ? --- Professional --- ? 13664, Colonoscopy, flexible; with removal of ? tumor(s), polyp(s), or other lesion(s) by snare ? technique Diagnosis Code(s): ? --- Professional --- ? Z86.010, Personal history of colonic polyps ? D12.8, Benign neoplasm of rectum ? K57.30, Diverticulosis of large intestine without ? perforation or abscess without bleeding CPT copyright 2020 [employer]. All rights reserved. The codes documented in this report are preliminary and upon polymer scientist review may be revised to meet current compliance requirements. Hansel Turner MD 03/04/2025 1:31:20 PM This report has been signed electronically.Hansel Turner MD Number of Addenda: 0 Note Initiated On: 03/04/2025 1:09 PM Scope In: Scope Out: ? Endoscopy Department at [facility] - [address] [place] [address], ? [place] [phone] Procedure Note Hansel Turner MD - 03/04/2025 [facility] GI Patient Name: Flores Oneil Procedure Date: 03/04/2025 1:09 PM Date of : 1960 Age: 64 Room: ROOM 16 Gender: Female Note Status: Finalized Attending MD: Hansel Turner MD, Procedure Date No Time: 03/04/2025 Procedure: Colonoscopy Indications: High risk colon cancer surveillance: Personalhistory of colonic polyps Providers: Hansel Turner MD Referring MD: Hansel Turner MD Medicines: Propofol per Anesthesia Complications: No immediate complications. Estimated Blood Loss: Estimated blood loss: none. Procedure: Pre-Anesthesia Assessment: - ASA Grade Assessment: II - A patient with mild systemic disease. After I obtained informed consent, the scope was passed under direct vision. Throughout theprocedure, the patient's blood pressure, pulse, and oxygen saturations were monitored continuously.The Olympus Pediatric Colonoscope was introduced through theanus and advanced to the cecum, identified byappendiceal orifice and ileocecal valve. The colonoscopy was performed without difficulty. The patient tolerated the procedure well. The quality of the bowel preparation was good. Findings: The perianal and digital rectal examinations were normal. A 5 mm polyp was found in the distal rectum. Thepolyp was sessile. The polyp was removed with a coldsnare. Resection and retrieval were complete. Multiple diverticula were found in the sigmoidcolon. The exam was otherwise without abnormality ondirect and retroflexion views. Procedure Code(s): --- Professional --- 86450, Colonoscopy, flexible; with removal of tumor(s), polyp(s), or other lesion(s) by snare technique Diagnosis Code(s): --- Professional --- Z86.010, Personal history of colonic polyps D12.8, Benign neoplasm of rectum K57.30, Diverticulosis of large intestine without perforation or abscess without bleeding CPT copyright 2020 [employer]. All rights reserved. The codes documented in this report are preliminary and upon polymer scientist reviewmay be revised to meet current compliance requirements. Hansel Turner MD 03/04/2025 1:31:20 PM This report has been signed electronically.Hansel Turner MD Number of Addenda: 0 Note Initiated On: 03/04/2025 1:09 PM Scope In: Scope Out: Endoscopy Department at [facility] - [address] [place] [phone] IMPRESSION: - One 5 mm polyp in the distal rectum, removed with a cold snare. Resected and retrieved. - Diverticulosis in the sigmoid colon. - The examination was otherwise normal on directand retroflexion views. Recommendation: - Await pathology results. - Repeat colonoscopy in 5 years for surveillance. us Hansel Turner MD GI~PROCEDURE ORDERABLES Fin al Result * EGD Anesthesia - MAC; [facility] ENDOSCOPY (03/04/2025 1:36 PM EDT) Anatomical Region Laterality Modality Endoscopy 03/04/2025 1:31 PM EDT Impressions 03/04/2025 1:36 PM EDT - Normal mid esophagus. Biopsied. ? - Normal esophagus. ? - Normal stomach. ? - Normal examined duodenum. Recommendation: ?- Await pathology results. ? - Continue present medications. Narrative 03/04/2025 1:36 PM EDT [facility] GI Patient Name: Flores Oneil Procedure Date: 03/04/2025 1:31 PM Date of : 1960 Age: 64 Room: ROOM 16 Gender: Female Note Status: Finalized Attending MD: Hansel Turner MD, Procedure Date No Time: 03/04/2025 Procedure: ? Upper GI endoscopy Indications: ? Epigastric abdominal pain, Dysphagia, ? Gastro-esophageal reflux disease Providers: ? Hansel Turner MD Referring MD: ?Hansel Turner MD Medicines: ? Propofol per Anesthesia Complications: ? No immediate complications. Estimated Blood Loss: ? Estimated blood loss: none. Procedure: ? Pre-Anesthesia Assessment: ? - ASA Grade Assessment: II - A patient with mild ? systemic disease. ? After obtaining informed consent, the endoscope was ? passed under direct vision. Throughout the procedure, ? the patient's blood pressure, pulse, and oxygen ? saturations were monitored continuously.The Endoscope ? was introduced through the mouth, and advanced to the ? second part of duodenum. The upper GI endoscopy was ? accomplished without difficulty. The patient tolerated ? the procedure well. Findings: ?The mid esophagus was normal. Biopsies were taken with ? a cold forceps for histology. ? The esophagus was normal. ? The stomach was normal. ? The examined duodenum was normal. Procedure Code(s): ? --- Professional --- ? 04534, Esophagogastroduodenoscopy, flexible, ? transoral; with biopsy, single or multiple Diagnosis Code(s): ? --- Professional --- ? R10.13, Epigastric pain ? R13.10, Dysphagia, unspecified ? K21.9, Gastro-esophageal reflux disease without ? esophagitis CPT copyright 2020 [employer]. All rights reserved. The codes documented in this report are preliminary and upon polymer scientist review may be revised to meet current compliance requirements. Hansel Turner MD 03/04/2025 1:36:27 PM This report has been signed electronically.Hansel Turner MD Number of Addenda: 0 Note Initiated On: 03/04/2025 1:31 PM Scope In: Scope Out: ? Endoscopy Department at [facility] - [address] [place] [address], ? [place] [phone] Procedure Note Hansel Turner MD - 03/04/2025 [facility] GI Patient Name: Flores Oneil Procedure Date: 03/04/2025 1:31 PM Date of : 1960 Age: 64 Room: ROOM 16 Gender: Female Note Status: Finalized Attending MD: Hansel Turner MD, Procedure Date No Time: 03/04/2025 Procedure: Upper GI endoscopy Indications: Epigastric abdominal pain, Dysphagia, Gastro-esophageal reflux disease Providers: Hansel Turner MD Referring MD: Hansel Turner MD Medicines: Propofol per Anesthesia Complications: No immediate complications. Estimated Blood Loss: Estimated blood loss: none. Procedure: Pre-Anesthesia Assessment: - ASA Grade Assessment: II - A patient with mild systemic disease. After obtaining informed consent, the endoscope was passed under direct vision. Throughout theprocedure, the patient's blood pressure, pulse, and oxygen saturations were monitored continuously.TheEndoscope was introduced through the mouth, and advanced tothe second part of duodenum. The upper GI endoscopy was accomplished without difficulty. The patienttolerated the procedure well. Findings: The mid esophagus was normal. Biopsies were takenwith a cold forceps for histology. The esophagus was normal. The stomach was normal. The examined duodenum was normal. Procedure Code(s): --- Professional --- 05979, Esophagogastroduodenoscopy, flexible, transoral; with biopsy, single or multiple Diagnosis Code(s): --- Professional --- R10.13, Epigastric pain R13.10, Dysphagia, unspecified K21.9, Gastro-esophageal reflux disease without esophagitis CPT copyright 2020 [employer]. All rights reserved. The codes documented in this report are preliminary and upon polymer scientist reviewmay be revised to meet current compliance requirements. Hansel Turner MD 03/04/2025 1:36:27 PM This report has been signed electronically.Hansel Turner MD Number of Addenda: 0 Note Initiated On: 03/04/2025 1:31 PM Scope In: Scope Out: Endoscopy Department at [facility] - [address] [place] [phone] IMPRESSION: - Normal mid esophagus. Biopsied. - Normal esophagus. - Normal stomach. - Normal examined duodenum. Recommendation: - Await pathology results. - Continue present medications. Hansel Turner MD GI~PROCEDURE ORDERABLES Fin al Result * Tissue exam (03/04/2025 1:28 PM EDT) Final Diagnosis A. Large Intestine, Rectum, polyp: - Tubular adenoma. B. Esophagus, mid biopsies: - Esophageal squamous mucosa with no specific pathologic changes. - Negative for intraepithelial eosinophils. 03/05/2025 10:56 AM EDT [facility] Gross Description A. Large Intestine, Rectum, polyp: Labeled LI rectum polyp . Received in formalin is a 0.2 cm irregular kirkpatrick mucosal tissue fragment which is wrapped in paper and submitted total in one cassette, one piece, multiple levels on one slide. B. Esophagus, mid biopsies: Labeled esophagus mid biopsy . Received in formalin are two irregular pink-white mucosal tissue fragments, each measuring approximately 0.2 cm in greatest dimension, which are wrapped in paper and submitted in toto in one cassette, two pieces, multiple levels on one slide. BARBARA 03/05/2025 10:56 AM EDT [facility] Disclaimer Unless otherwise specified, all tissue is 10% NB formalin fixed and paraffin embedded. 03/05/2025 10:56 AM EDT [facility] Tissue Rectum structure / Unknown 03/04/2025 1:28 PM EDT 03/04/2025 3:52 PM EDT Tissue specimen (specimen) Esophageal structure / Unknown 03/04/2025 1:33 PM EDT 03/04/2025 3:52 PM EDT us Hansel Turner MD LAB PATHOLOGY ORDERABLES Fi nal Result [facility] [address] [place] [address], from Last 3 Months Insurance MEDICARE [facility] Care Teams Security Shift Supervisor Relationship Specialty Start Date End Date Kayode Sanchez MD [address] [place] [address] PCP - General Internal Medicine 03/04/25
--- OUTSIDE RECORDS SUMMARY | 2025-03-31 11:29 | XMS_ITS | Data Portability ---
Author Organization [facility], PAIN OFF[facility] Address [address] [facility],[address] [place] [address] Care Team Providers Care Flying Squad Salesperson Name Role Phone MAURA MCCURDY Primary Care Provider Assessment Encounter Date Assessment Date Assessment LastModified by Organization Details LastModified Time 10/07/2013 10/07/2013 Flores Oneil is a 53 year old woman with complaints of chest pain and shortness of breath with headaches and upper and mid back pain and neck pain occasionally radiating into her right upper extremity. She states her greatest symptom is aching pain in her chest and upper and mid back. on exam, she has myofascial pain which is diffuse in her upper and mid back pain. Spurling's sign is negative. MRI of the cervical spine shows small bilateral posterolateral osteophytes at C5/6 with possible C6 nerve root compression, particularly on the right. Minor spondylosis elsewhere without spinal cord or nerve root compression. We discussed various options for pain control 1. Her neck pain radiating into her right upper extremity is not her primary pain issue presently. Hence I do not recommend a trial of cervical epidural steroid injection. 2. I have given her a sample of voltaren gel to trial and if beneficial , she will call and??I will prescribe her the same. [email or web address] Not available 10/21/2013 11:27:18 01/20/2014 01/20/2014 Flores Oneil is a 53 year old woman with complaints of chest wall pain, neck, mid and low back pain . She states her greatest symptom is aching pain in her chest and upper and mid back. On exam, she has myofascial pain which is diffuse in her upper and mid back regions. Winging of the scapula is noted on the right side. I will order an EMG/NCV study to elucidate the cause . I have given her a sample of flector patches to trial. If beneficial , I will prescribe the same for her. She would also benefit from biofeed back and We will discuss this further after I review her EMG results. [email or web address] Not available 01/20/2014 14:52:26 02/17/2014 02/17/2014 Flores Oneil is a 53 year old woman with complaints of chest wall pain, neck, mid and low back pain . She states her greatest symptom is aching pain in her chest and upper and mid back. On exam, she has myofascial pain which is diffuse in her upper and mid back regions. Winging of the scapula is noted on the right side. She is here for a follow up after an EMG/NCV study . 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 I recommend physical therapy for the winging of the scapula. She will follow 4 weeks after starting physical therapy. She might also benefit from a trial of biofeedback. [email or web address] Not available 02/25/2014 19:21:19 04/01/2014 04/01/2014 Flores Oneil is a 53 year old woman with complaints of chest wall pain, neck, mid and low back pain . Her worst pain is her low back pain presently. On exam, she has pain on flexion. MRI Lumbar spine shows mild levoscoliosis . Minimal discogenic degenerative change at L4-5 with minimal disc bulging without significant neural foramial compromise. We discussed various treatment options. 1. Continuation of physical therapy as she is having good pain benefit. 2. Trial of trigger point injections in the paraspinal muscles in her lower lumbar region if she has persistent pain after PT. She will call for an appointment. [email or web address] Not available 04/05/2014 15:38:34 Plan of Treatment Reminders Order Date Submit Date Provider Last Modified By Organization Details Last Modified Time Details Appointments None recorded. Lab None recorded. Referral None recorded. Procedures None recorded. Surgeries None recorded. Imaging None recorded. Medication Orders Flector 1.3 % transdermal 12 hour patch 2013 014 [email or web address] [facility] #[id number], [address] [facility] [place], [address], 4 10:07:22 Patient TargetsNo targets recorded. Patient Instructions Encounter Date Encounter Id Patient Instructions Last Modified By Organization Details Last Modified Time 10/07/2013 [id number] She was advised against bed rest lasting longer than four days and to continue activities as tolerated. [email or web address] Not available 10/21/2013 11:29:25 01/20/2014 [id number] She was advised against bed rest lasting longer than four days and to continue activities as tolerated. [email or web address] Not available 01/20/2014 14:53:32 02/17/2014 [id number] She was advised against bed rest lasting longer than four days and to continue activities as tolerated. [email or web address] Not available 02/22/2014 11:36:18 04/01/2014 [id number] She was advised against bed rest lasting longer than four days and to continue activities as tolerated. [email or web address] Not available 04/05/2014 14:32:59 Reason for Referral None Reported. Results Created Date Observation Date Name Description Value Unit Range Abnormal Flag Note LastModifiedBy Organization Detail LastModifiedTime 02/18/20 14 02/17/2014 imagi ng/di agnos tic resul t No observ ation record ed. skye [facility] [address] [place], [address], 02/22/2014 11:36:18 03/30/20 14 03/25/2014 imagi ng/di agnos tic resul t No observ ation record ed. skye [facility] [place] [address] [address], [place], [address], 04/02/2014 11:24:34 Result Notes None recorded. 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 Procedures Surgical History Date Name Laterality Status Provider Name and Address Organization Details Recorded Time 12/02/2011 Other completed Sujey Hendrix [place] - [facility] 10/07/2013 09:18:52 Other completed Sujey Hendrix [place] - [facility] 10/23/2013 09:55:28 Imaging Results Imaging Date Name Status LastModified by Organizatio n Details LastModified Time 02/17/2014 imaging/carrie gnostic result completed [facility]) [address] [place], [address], 02/22/2014 11:36:18 03/25/2014 imaging/carrie gnostic result completed [facility] [address], [address], 04/02/2014 11:24:34 Procedure Notes None recorded. Medical Equipment None Reported. Allergies Allergen ID Allergen Name Allergen Category Reaction Reaction Severity Criticality Documentation Date Start Date Code Code System Note Provider Name and Address Organization Details Recorded Time 7001 latex environme nt,medica tion respirato ry distress Not available Not available 10/07/2013 24257 91 RxNorm Sujey collins [place] - [facility] 3 09:14:58 7002 Levaquin medicatio n respirato ry distress Not available Not available 10/07/2013 20634 2 RxNorm Sujey collins [place] - [facility] 3 09:14:58 7101 Iodinated contrast media (substanc e) medicatio n respirato ry distress Not available Not available 10/08/2013 44178 2004 SNOMED Sujey collins, [facility] 3 15:37:36 7102 Avelox medicatio n respirato ry distress Not available Not available 10/08/2013 08921 6 RxNorm Sujey collins, [facility] 3 15:37:36 7103 procaine hydrochlo ride medicatio n Not available Not available Not available 10/08/2013 95087 8 RxNorm Palpa tatio ns Sujey collins, [facility] 3 15:37:36 Medications Name Sig Start Date Stop Date Status Note LastModified by Organization Details LastModified Time tretinoin 0.1 % topical cream APPLY SPARINGL Y TO AFFECTED AREA(S) ONCE DAILY AT BEDTIME. active Not Available Not Available No t Available clotrimazo le 10 mg tara active Not Available Not Available Not Available terconazol e 0.4 % vaginal cream active Not Available Not Available Not Available nystatin 100,000 unit/mL oral suspension active Not Available Not Available N ot Available prednisone 10 mg tablet active Not Available Not Available Not Available albuterol sulfate 2.5 mg/3 mL (0.083 %) solution for nebulizati on active Not Available Not Available Not Available tizanidine 4 mg tablet active Not Available Not Available Not Available fluconazol e 150 mg tablet active Not Available Not Available Not Available Claritin 10 mg tablet Take 1 tablet every day by oral route. active as needed Not Available Not Available Not Available hydroquino ne 4 % topical cream APPLY THIN FILM TO AFFECTED AREA DAILY active Not Available Not Available No t Available terconazol e 0.8 % vaginal cream active Not Available Not Available Not Available clonazepam 1 mg tablet active Not Available Not Available Not Available Nexium 40 mg capsule,de layed release active Not Available Not Available Not Available Celexa 20 mg tablet active Not Available Not Available No t Available baclofen 10 mg tablet active Not Available Not Available Not Available dexamethas one 4 mg tablet active Not Available Not Available Not Available lidocaine 5 % topical patch APPLY 1 PATCH TOPICALL Y ONCE DAILY MAY WEAR UP TO 12 HOURS AND 12 HOURS OFF active Not Available Not Available No t Available Combivent 18 mcg-103 mcg/actuat ion aerosol inhaler active Not Available Not Available Not Available montelukas t 10 mg tablet TAKE 1 TABLET BY MOUTH EVERY EVENING active Not Available Not Available No t Available Proventil HFA 90 mcg/actuat ion aerosol inhaler INHALE 2 PUFFS BY MOUTH 4 TIMES A DAY NEEDED FOR WHEEZE OR FOR SHORTNES S OF BREATH active Not Available Not Available No t Available mupirocin 2 % topical ointment active Not Available Not Available Not Available zolpidem 5 mg tablet active Not Available Not Available No t Available Nasonex 50 mcg/actuat ion [place] active Not Available Not Available No t Available Celexa 40 mg tablet active Not Available Not Available No t Available amoxicilli n 875 mg-potassi um clavulanat e 125 mg tablet active Not Available Not Available Not Available Spiriva with HandiHaler 18 mcg and inhalation capsules INHALE 1 CAPSULE VIA HANDIHAL ER ONCE DAILY AT THE SAME TIME EVERY DAY active Not Available Not Available No t Available Viactiv active Not Available Not Avail able Not Available Symbicort 160 mcg-4.5 mcg/actuat ion HFA aerosol inhaler INHALE 2 PUFFS BY MOUTH TWICE A DAY active Not Available Not Available No t Available Flector 1.3 % transderma l 12 hour patch Apply 1 patch twice a day by transder mal route for 30 days. 02/24 completed Not Available Not Available Not Available Omnaris 50 mcg nasal spray USE 2 SPRAYS INTRANAS ALLY ONCE A DAY FOR 30 DAYS active Not Available Not Available No t Available Astepro 205.5 mcg (0.15 %) nasal spray USE 2 SPRAYS INTO EACH NOSTRIL TWICE A DAY active Not Available Not Available No t Available Probiotic active Not Available Not Chel ilable Not Available Fiber Gummies active Not Available Not Available Not Available Verito Burciaga [facility] spacer TAKE DIRECTED --NOT COVERED BY INS-- active Not Available Not Available No t Available Dymista 137 mcg-50 mcg/spray nasal spray active Not Available Not Available Not Available EpiPen 2-Ben 0.3 mg/0.3 mL injection, auto-injec tor active Not Available Not Available Not Available Multi Vitamin daily active Not Available Not Available Not Available Vitals Date Recorded Body height Body weight Body mass index (BMI) Heart rate Oxygen saturation Oxygen saturation in Arterial blood by Pulse oximetry Systolic blood pressure Diastolic blood pressure Provider Name and Address Organization Details Last Updated DateTime 3 157.48 cm 40247.3 0729 g 21.4 kg/m2 94 /min 99 % 99 % 110 mm[Hg] 61 mm[Hg] Sujey Hendrix [place] - [facility] 3 09:14:58 Date Recorded Heart rate Oxygen saturation Oxygen saturation in Arterial blood by Pulse oximetry Systolic blood pressure Diastolic blood pressure Provider Name and Address Organization Details Last Updated DateTime 4 78 /min 98 % 98 % 89 mm[Hg] 56 mm[Hg] Sujey Strongzier [facility] 4 10:42:49 Date Recorded Heart rate Oxygen saturation Oxygen saturation in Arterial blood by Pulse oximetry Systolic blood pressure Diastolic blood pressure Provider Name and Address Organization Details Last Updated DateTime 4 97 /min 100 % 100 % 109 mm[Hg] 64 mm[Hg] Sujey Strongzier [facility] 4 10:07:22 Date Recorded Heart rate Oxygen saturation Oxygen saturation in Arterial blood by Pulse oximetry Systolic blood pressure Diastolic blood pressure Provider Name and Address Organization Details Last Updated DateTime 4 83 /min 98 % 98 % 105 mm[Hg] 47 mm[Hg] Sujey Hendrix [place] - [facility] 4 13:07:05 Social History Question Answer Notes LastModified by Organizat ion Details LastModified Time Tobacco Smoking Status Former Smoker [facility]uit x 15 years Not [facility] 09/16/2020 03:16:10 What Is Your Level Of Alcohol Consumption? Occasional [id number] Information not available 09/16/2020 Are You Currently Employed? No [id number] Information not available 09/16/2020 Which Illicit Or Recreational Drugs Have You Used? No [id number] Information not available 09/16/2020 Education 4 Year College Informatio n not available 10/07/2013 Live Alone Or With Others? With Others Information not available 10/07/2013 Marital Status [email or web address] Informatio n not available 10/07/2013 How Many Years Have You Smoked Tobacco? 20 [id number] Information not available 09/16/2020 Sex: Unknown Functional Status None recorded. Mental Status None recorded. Family History Relationship Description Onset Age of this Age Resolved Age Notes LastModified by Organization Details LastModified Time Mother Asthma [email or web address] Not availabl e 04/02/2014 11:24:00 Mother Chronic obstructive pulmonary disease [email or web address] Not available 01/2014 11:24:00 Father Malignant neoplastic disease Lung and Prosta te [email or web address] Not available 04/02/2014 11:24:00 Sister Malignant neoplastic disease [email or web address] Not available 01/2014 11:24:00 Medical History Condition Response Anxiety Disorder Y Headache Y Depression Y Asthma Y GERD/Reflux Y Gynecological HistoryNo gynecological history recorded. Obstetrics History GPAL:G 0 P 0 0 0 0 Past Encounters Encounter ID Performer Location Encounter Start Date Encounter Closed Date Diagnosis/Indication Diagnosis SNOMED-CT Code Diagnosis ICD10 Code Diagnosis Note [id number] Darryn Rehman MD PAIN OFFICE [address] [place] [address] 10/07/2013 08:58:15 10/08/2013 16:05:21 Degeneration of cervical intervertebral disc 31792775 Muscle pain 21762931 [id number] Darryn Rehman MD PAIN OFFICE [address] [place] [address] 01/20/2014 10:23:28 01/20/2014 14:54:07 Muscle pain 43631923 Degenerati on of cervical intervertebral disc 59483839 Winged scapula 13912885 [id number] Darryn Rehman MD PAIN OFFICE [address] [place] [address] 02/17/2014 09:53:02 02/25/2014 19:22:03 Muscle pain 84562844 Degenerati on of cervical intervertebral disc 03144620 Winged scapula 30768957 [id number] Darryn Rehman MD PAIN OFFICE [address] [facility] [address] 04/01/2014 12:48:34 04/02/2014 11:25:14 Muscle pain 40108436 Degenerati on of cervical intervertebral disc 97194679 Winged scapula 74477578 Displaceme nt of lumbar intervertebral disc without myelopathy 39308273 Health Concerns Section Related Observation LastModified by Organization Detai ls LastModified Time None Recorded Concern Status LastModified by Organization Details LastModified Time None Recorded Advance Directives Directive None Recorded Payers Encounter Date Sequence Insurance Name Policy Number Policy Christiansen Covered Member ID Christiansen Member ID Guarantor Name 10/07/2013 1 [facility] [employer] ([employer]) [id number] Neil Oneil [id number] Flores Oneil 01/20/2014 1 [facility] [employer] [id number] Neil Oneil Jr [id number] Flores Oneil 02/17/2014 1 [facility] [employer]) [id number] Neil Oneil Jr [id number] Flores Oneil 04/01/2014 1 [facility] [employer] ([employer]) [id number] Neil Oneil Jr [id number] Flores Oneil Notes Date Note Type Note Provider Name and Address Organization Details Recorded Time 10/07/2013 text/html Past Pain treatments: She has trialed physical therapy, chiropractic treatments, massage, acupuncture , biofeed back and injections with no halfway pain benefit. Darryn Rehman MD [address] [place] [address] , [address], [place], [address], [place] [facility] 10/23/2013 09:58:25 01/20/2014 text/html She is here for a follow up . She states she had trialed voltaren gel and found that the smell bothered her asthma. She has not been able to follow up with me due to her various other appointments. She has seen Dr. Saucedo , her single needle operator for her asthma and her sensation of chest tightness . 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 Otherwise normal. She has also seen Dr. Moctezuma for hoarseness of voice and is doing speech therapy which she states has helped. She had a video of the functioning of her larynx done at Dr. Moctezuma office and feels her vagus nerve is affected. She has also seen Dr. Ratliff, a neurologist. He has prescribed zanaflex to help with her chest wall tightness and she is unsure of the benefit. She is also doing self hypnosis to help with her breathing. She is unsure of the benefit but has only had one session so far. Darryn Rehman MD [address] [facility] , [address], [place], [address], [facility] 01/25/2014 09:38:45 02/17/2014 text/html She is here for follow up to review EMG/NCV study. 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 Otherwise unremarkable. She continues to have a generalised chest tightness feeling which is constant. She states she is frustrated as she is unable to find a cause for this pain. She is using lidoderm patches and feels some pain benefit. She has also started seeing a hypnosis specialist. Darryn Rehman MD [address] [facility] , [address], [place], [address], [facility] 02/26/2014 08:35:52 OBGyn Episode No OBEpisode recorded.
--- OUTSIDE RECORDS SUMMARY | 2025-03-31 11:29 | XMS_ITS | Encounter Summary ---
Author Organization [facility] Address [address] [place] [address] Care Team Providers Care Car Loader Name Role Phone Unavailable Primary Care Provider Unavailabl e Encounter Details Date Type Department Care Team (Late st Contact Info) Description 10/14/2020 Scanned Document Cardiac Surgery at [address] [facility] 2nd [place] [address] Provider, Historical . Social History Tobacco Use Types Packs/Day Years Used Date Smoking Tobacco: Never Assessed Comments Unknown Sex and Gender Information Value Date Recorded Sex Assigned at Not on file Legal Sex Female 5:50 PM EST Gender Identity Not on file Sexual Orientation Not on file documented as of this encounter Plan of Treatment Not on file documented as of this encounter Procedures Procedure Name Priority Date/Time Associated Diagnosis Comments CT RESULT SCAN Routine 06/24/2001 documented in this encounter Results * CT Result Scan (06/24/2001) Historical Provider IMG SCAN REPORTS Final Resul t documented in this encounter Visit Diagnoses Not on filedocumented in this encounter
--- OUTSIDE RECORDS SUMMARY | 2025-03-31 11:29 | XMS_ITS | Encounter Summary ---
Author Organization [facility] Address [address] [facility] 7 [place] [address] Care Team Providers Care Soft Boarder Name Role Phone Unavailable Primary Care Provider Unavailabl e Encounter Details Date Type Department Care Team (Latest Contact Info) Description 04/12/2022 Abstract [facility] CONVERSIONS Dental, Provider, DDS Social History Tobacco Use Types Packs/Day Years Used Date Smoking Tobacco: Never Assessed Comments Unknown Sex and Gender Information Value Date Recorded Sex Assigned at Female 10/01/2022 10:32 AM EDT Legal Sex Female 10:32 AM EDT Gender Identity Female 10/01/2022 10:32 AM EDT Sexual Orientation Straight 10/01/2022 10 :32 AM EDT documented as of this encounter Plan of Treatment Upcoming Encounters Date Type Department Care Team (Late st Contact Info) Description 04/06/2025 2:00 PM EDT Office Visit [facility] [address] [place] [address] Shun Nicole, LINDA [address] [place] [address] 08/26/2025 11:00 AM EDT Office Visit [facility] [address] [place] [address] Marly Stark [address] [place] [address] documented as of this encounter Visit Diagnoses Not on filedocumented in this encounter
--- OUTSIDE RECORDS SUMMARY | 2025-03-31 11:29 | XMS_ITS | Data Portability ---
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 [email or web address] Not available 06/24/2023 22:33:06 Plan of Treatment Reminders Order Date Submit Date Provider Last Modified By Organization Details Last Modified Time Details Appointments None record ed. Lab None record ed. Referral None record ed. Procedures None record ed. Surgeries None record ed. Imaging None record ed. Medication Orders None record ed. Patient TargetsNo targets recorded. Patient Instructions Encounter Date Encounter Id Patient Instructions Last Modified By Organization Details Last Modified Time 06/24/2023 [id number] osteoporosis: care instructions [email or web address] Not available 06/24/2023 15:46:24 Reason for Referral None Reported. Results Created Date Observation Date Name Description Value Unit Range Abnormal Flag Note LastModifiedBy Organization Detail LastModifiedTime 06/24/20 23 bone densi ty No observ ation record ed. [email or web address] Not Available 2022 10:37:52 Result Notes None recorded. Problems No Known Problems Procedures Surgical History Date Name Laterality Status Provider Name and Address Organization Details Recorded Time 3 completed Niesha Huynh [facility] 06/24/2023 14:37:29 2 Most Recent Bone Density completed Niesha Huynh [facility] 06/24/2023 14:37:30 Abdominal Surgery completed Niesha Huynh [facility] 06/24/2023 14:37:47 Senior Solutions Architect Surgery completed Niesha Huynh [facility]. 06/24/2023 14:37:47 Heart Surgery completed Niesha Huynh [facility]. 06/24/2023 14:37:47 Eye Surgery completed Niesha Huynh [facility]. 06/24/2023 14:37:47 Oral Surgery completed Niesha Huynh [facility]. 06/24/2023 14:37:47 Plastic Surgery completed Niesha Huynh [facility]. 06/24/2023 14:37:47 Vascular Surgery completed Niesha Huynh [facility]. 06/24/2023 14:37:47 Imaging Results Imaging Date Name Status LastModified by Organiz ation Details LastModified Time 06/24/2023 bone density completed [email or web address] Information not available 06/25/2023 10:37:52 Procedure Notes None recorded. Medical Equipment None Reported. Allergies Allergen ID Allergen Name Allergen Category Reaction Reaction Severity Criticality Documentation Date Start Date Code Code System Note Provider Name and Address Organization Details Recorded Time 113398 iodine medicatio n rash Not available Not available 06/24/2023 5933 [facility] 14:37:01 594532 POLLEN EXTRACTS environme nt,medica tion itching respirato ry distress Not available Not available Not available 06/24/2023 77186 6 RxNorm Niesha collins [facility] 14:37:01 191167 house dust allergeni c extract environme nt,medica tion itching rash Not available Not available Not available 06/24/2023 92256 9 RxNorm Niesha collins, [facility] 14:37:01 871052 azithromy birgit medicatio n nausea Not available Not available 06/24/2023 71462 RxNorm Niesha collins [facility] 14:37:01 973802 latex environme nt,medica tion itching respirato ry distress Not available Not available Not available 06/24/2023 57546 91 RxNorm Niesha collins [facility] 14:37:01 095541 mold extract environme nt rash respirato ry distress Not available Not available Not available 06/24/2023 80163 8 RxNorm Niesha collins [facility] 14:37:01 046026 cigarette smoke environme nt respirato ry distress Not available Not available 06/24/2023 27801 UNK Niesha collins [facility] 14:37:01 Medications Name Sig Start Date Stop Date Status Note LastModified by Organization Details LastModified Time diclofenac 3% / baclofen 2% / gabapentin 6% / bupivacaine hcl 1% Apply 1-3 grams to the affected area 3-4 times daily (NECK) 06/24 completed Not Available Not Available Not Available lido 5% nifed 0.2% oint APPLY A PEA SIZED AMOUNT TO ANAL AREA 3 TO 4 TIMES A DAY active Not Available Not Available No t Available naltrexone 4.5mg capsules TAKE 1 CAPSULE BY MOUTH EVERY DAY active Not Available Not Available No t Available tretinoin 0.1 % topical cream APPLY TO FACE AT BEDTIME active Not Available Not Available No t Available nystatin 100,000 unit/mL oral suspension SWISH AND SWALLOW 5ML FOUR TIMES A DAY 06/22 completed Not Available Not Available Not Available gabapentin 600 mg tablet TAKE 1 TABLET BY MOUTH TWICE A DAY active Not Available Not Available No t Available doxycycline hyclate 100 mg capsule TAKE 1 CAPSULE BY MOUTH TWICE A DAY 06/22 completed Not Available Not Available Not Available alprazolam 1 mg tablet 06/24 completed Not Available Not Available Not Available hydroquinon e 4 % topical cream APPLY TO FACE ONCE DAILY X 3 MONTHS TAKE 1 MONTH BREAK THEN REPEAT. STOP IF HYPERPIGM ENTATION NOTED active Not Available Not Available No t Available clonazepam 1 mg tablet TAKE 1 TABLET BY MOUTH EVERY DAY AT BEDTIME NEEDED active Not Available Not Available No t Available hydrocortis one acetate 25 mg rectal suppository UNWRAP AND INSERT 1 SUPPOSITO RY INTO RECTUM AT BEDTIME active Not Available Not Available No t Available famotidine 20 mg tablet TAKE 1 TABLET BY MOUTH TWICE A DAY active Not Available Not Available No t Available Celexa 20 mg tablet TAKE 1 TABLET BY MOUTH EVERY DAY active Not Available Not Available No t Available omeprazole 20 mg capsule,del ayed release TAKE 1 CAPSULE (20 MG TOTAL) BY MOUTH DAILY. TAKE 30 MINUTES BEFORE BREAKFAST ON AN EMPTY STOMACH 06/22 completed Not Available Not Available Not Available budesonide 0.5 mg/2 mL suspension for nebulizatio n INHALE 2 ML VIA NEBULIZER TWICE A DAY FOR 90 DAYS 06/24 completed Not Available Not Available Not Available montelukast 10 mg tablet TAKE 1 TABLET BY MOUTH EVERY DAY active Not Available Not Available No t Available epinephrine 0.3 mg/0.3 mL injection, auto-inject or USE DIRECTED FOR ANAPHYLAX IS THEN CALL 911 active Not Available Not Available No t Available methylpredn isolone 4 mg tablets in a dose pack TAKE 6 TABLETS ON DAY 1 DIRECTED ON PACKAGE AND DECREASE BY 1 TAB EACH DAY FOR A TOTAL OF 6 DAYS 06/22 completed Not Available Not Available Not Available loratadine 10 mg tablet TAKE 1 TABLET EVERY DAY NEEDED FOR ALLERGIES active Not Available Not Available No t Available cyclobenzap rine 5 mg tablet TAKE 1 TABLET BY MOUTH AT BEDTIME NEEDED active Not Available Not Available No t Available duloxetine 30 mg capsule,del ayed release TAKE 1 CAPSULE BY MOUTH TWICE A DAY 06/22 completed Not Available Not Available Not Available levalbutero l HFA 45 mcg/actuati on aerosol inhaler INHALE 2 PUFFS EVERY 6 HOURS NEEDED FOR SHORTNESS OF BREATH OR WHEEZING X30 DAYS active Not Available Not Available No t Available sodium fluoride 1.1 % dental paste BRUSH TWICE A DAY WITH PEA SIZED DOSE - DO NOT RINSE active Not Available Not Available No t Available Omnaris 50 mcg nasal spray USE 2 SPRAYS INTRANASA LLY ONCE A DAY 07/22 /2023 completed Not Available Not Available Not Available cholecalcif alisia (vitamin D3) 50 mcg (2,000 unit) tablet TAKE 1 TABLET BY MOUTH EVERY DAY active Not Available Not Available No t Available Alvesco 160 mcg/actuati on aerosol inhaler INHALE 2 PUFFS BY MOUTH TWICE DAILY active Not Available Not Available No t Available Spiriva Respimat 2.5 mcg/actuati on solution for inhalation INHALE 2 PUFFS BY MOUTH DAILY active Not Available Not Available No t Available Trulance 3 mg tablet TAKE 1 TABLET BY MOUTH EVERY DAY active Not Available Not Available No t Available QuickVue At-Home COVID-19 Test kit USE ACCORDING TO MANUFACTU RER'S INSTRUCTI ON 06/24 completed Not Available Not Available Not Available Vitals Date Recorded Pain severity - 0-10 verbal numeric rating [Score] - Reported Body height Body mass index (BMI) Body weight Body temperature Oxygen saturation Oxygen saturation in Arterial blood by Pulse oximetry Heart rate Systolic blood pressure Diastolic blood pressure Provider Name and Address Organization Details Last Updated DateTime 3 0 154.94 cm 23.5 kg/m2 90286.8 5 g 98 [degF] 100 % 100 % 83 /min 111 mm[Hg] 69 mm[Hg] Niesha Huynh [facility] 14:52:06 Social History Question Answer Notes LastModified by Organizat ion Details LastModified Time Tobacco Smoking Status Former Smoker Niesha Huynh [facility] 06/24/2023 14:37:42 Do You Have An Advance Directive? No [email or web address] Information not available 06/24/2023 What Is Your Level Of Alcohol Consumption? Occasional [email or web address] Information not available 06/24/2023 Are You Blind Or Do You Have Difficulty Seeing? No [email or web address] Information not available 06/24/2023 Is Blood Transfusion Acceptable In An Emergency? Yes [email or web address] Information not available 06/24/2023 What Is Your Level Of Caffeine Consumption? Moderate [email or web address] Information not available 06/24/2023 Are You Currently Employed? No [email or web address] Information not available 06/24/2023 Are You Deaf Or Do You Have Serious Difficulty Hearing? No [email or web address] Information not available 06/24/2023 What Type Of Diet Are You Following? REGULAR [email or web address] Information not available 06/24/2023 When Did You Quit Smoking? 16+yearssincel astcigarette [email or web address] Information not available 06/24/2023 Which Of Your Hands Is Dominant? Right [email or web address] Information not available 06/24/2023 What Was The Date Of Your Most Recent Tobacco Screening? 06/24/2023 [email or web address] Information not available 06/24/2023 Do You Have Any Pets? No [email or web address] Information not available 06/24/2023 What Is Your Relationship Status? [email or web address] Information not available 06/24/2023 Do You Feel Stressed (tense, Restless, Nervous, Or Anxious, Or Unable To Sleep At Night)? [id number] [email or web address] Information not available 06/24/2023 Do You Use Any Illicit Or Recreational Drugs? No [email or web address] Information not available 06/24/2023 How Many Years Have You Smoked Tobacco? 20 [email or web address] Information not available 06/24/2023 Do You Or Have You Ever Used Any Other Forms Of Tobacco Or Nicotine? No [email or web address] Information not available 06/24/2023 How Many Days In The Past Year Have You Consumed 4 Or More Drinks? 0 [email or web address] Information no t available 06/24/2023 Sex: Unknown Functional Status Question Answer Note LastModified by Organizat ion Details LastModified Time Are you able to care for yourself? Yes [email or web address] Information not available 06/24/2023 What is your exercise level? Occasional [email or web address] Information not available 06/24/2023 Mental Status None recorded. Family History Relationship Description Onset Age of this Age Resolved Age Notes LastModified by Organization Details LastModified Time Paternal Grandmother Disorder of musculoskele william system [email or web address] Not available 06/02 14:37:07 Mother Chronic obstructive pulmonary disease [email or web address] Not available 06/24 14:37:07 Mother Asthma [email or web address] Not available 06/24/2023 14:37:07 Mother Dementia [email or web address] Not availab le 06/24/2023 14:37:07 Mother Heart disease [email or web address] Not available 06/24 14:37:07 Maternal Grandmother Malignant tumor of breast [email or web address] Not available 06/24 14:37:07 Maternal Grandmother Heart disease [email or web address] Not available 06/24 14:37:07 Brother Disorder of adrenal gland [email or web address] Not available 06/24 14:37:07 Sister Asthma [email or web address] Not available 06/24/2023 14:37:07 Sister Malignant tumor of breast [email or web address] Not available 06/24 14:37:07 Sister Depressive disorder [email or web address] Not available 06/24 14:37:07 Sister Disorder of musculoskele william system [email or web address] Not available 06/02 14:37:07 Father Chronic obstructive pulmonary disease [email or web address] Not available 06/24 14:37:07 Medical History Condition Response Back/Neck Pain Y Depression Y Headaches/Migraines Y Heart Rhythm Problem (Palpitations) Y Prior Blood Transfusion Y Anxiety Y Gastrointestinal Disease (IBS, Gastritis , Ulcer, Acid Reflux) Y Neuropathy (Numbness, Pain, Tingling) Y Osteopenia/Osteoporosis Y Asthma Y Spine Disease (Herniated Disc, Scoliosis , Stenosis) Y Other Disease(s): Y Gynecological History Statement/Question Response 05/03/2023 Date of LMP 05/02/2012 Last Annual Exam Date 12/02/2022 Date of last pap 11/02/2022 Total # of Births 0 Age at Menarche 14 If Post Menopausal, Age at Menopause 52 Most Recent Bone Density 11/01/2022 Abnormal MMG N Number of Abortions 1 Number of Pregnancies? 1 History of Abnormal Pap Smear? N Obstetrics History GPAL:G 0 P 0 0 0 0 Immunizations Vaccine Type Date Status Note Provider Nam e and Address Organization Details Recorded Time COVID-19, mRNA, LNP-S, PF, 30 mcg/0.3 mL dose 12/30/2020 [facility]23 14:46:28 COVID-19, mRNA, LNP-S, PF, 30 mcg/0.3 mL dose 01/20/2021 [facility] 14:46:29 COVID-19, mRNA, LNP-S, PF, 30 mcg/0.3 mL dose 09/08/2021 completed Niesha collins [facility] 06/24/2023 14:46:29 COVID-19, mRNA, LNP-S, PF, 30 mcg/0.3 mL dose, goran-sucrose 05/19/2022 [facility] 14:46:29 COVID-19, mRNA, LNP-S, bivalent, PF, 30 mcg/0.3 mL dose 10/11/2022 completed Niesha collins [facility] 06/24/2023 14:46:29 Influenza, split virus, quadrivalent, PF 08/24/2022 [facility]23 14:46:29 Influenza, split virus, quadrivalent, PF 09/18/2021 completed [facility]/24/2023 14:46:29 influenza nasal, unspecified formulation 01/12/2015 [facility]23 14:46:29 Past Encounters Encounter ID Performer Location Encounter Start Date Encounter Closed Date Diagnosis/Indication Diagnosis SNOMED-CT Code Diagnosis ICD10 Code Diagnosis Note [id number] Tony Valadez MD [facility] [address] [facility],[address] [phone] 06/24/2023 14:35:06 06/24/2023 15:49:20 Osteoporosis 82911672 M81.0 Long discussion regarding her degree of osteoporos is. Notably her BMD until 2019 was done on a different machine than in 2021, which limits comparabil ity of the results. However, Tscore of L1-L4 on BMD from 2021 was low at -3.1 which makes it mod-severe osteoporos is- may be underestim ated due to underlying arthritis (known history). W/up for secondary causes was neg previously . Hence, would benefit from anabolic therapy f/by antiresorp tive treatment. Discussed risks and benefits of Forteo/Tym los and Evenity. Pt wants to avoid Evenity due to her h/o irregular HR and h/o cardiac surgery. Appears to be willing to take Tymlos- reviewed SEs of dizziness, transient hypercalce laurie and hypercalcu reggie. We have reviewed with her about calcium enriched diet, weight bearing exercise, taking calcium and VitD supplement , and fall prevention s. Advised to increase current dose of calcium to 1000mg and VitD, and exercise regularly. Pt endorsed understand ing and agreed to the plan. Plan:- pt to call with decision of treatment- april f/up close at home RTC pending pt decision I spent 45 mins face-to-fa ce with patient robini neha, counseling , discussing about diagnostic workup and care plan and managing medication s, along with 20 mins for coordinati on of care including review of records, medication s, lab, imaging studies and documentat ion. Health Concerns Section Related Observation LastModified by Organization Detai ls LastModified Time None Recorded Concern Status LastModified by Organization Details LastModified Time None Recorded Advance Directives Directive N: Payers Encounter Date Sequence Insurance Name Policy Number Policy Christiansen Covered Member ID Christiansen Member ID Guarantor Name 06/24/2023 1 [place] B[place]: [employer] Flores Oneil [id number] Flores Oneil 06/24/2023 2 [place] 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 She was diagnosed with osteoporosis in 2021 and was ordered to get Prolia. However, then saw relay checker, who recommended Forteo- w/up for secondary causes was neg presumably.Had back injury after falling in pothole, currently get steroid shots in back. H/o breast cancer: NoBone History is notable for the following:Height: 5ft 2in adult height- lost 1 inchPrevious fractures: No BMD T scores; Date: BMD 11/2022 on different machine: L1-L4 BMD 0.703 g/cm??, T score -3.1, Z score -1.5Femoral neck BMD 0.538 g/cm??, T score -2.8, Z score -1.4Total hip BMD 0.687 g/cm??, T score -2.1, Z score -1.0 Past BMD results:02/13/2016: L1-L4 BMD 0.971 g/cm2, T score -1.8L femoral Neck BMD 0.764 g/cm2, T score -2.0L total hip BMD 0.825 g/cm2, T score -1.4 04/21/2018: L1-L4 BMD 0.930 g/cm2, T score -2.1, -4.2% changeL femoral Neck BMD 0.735 g/cm2, T score -2.2, -3.8% changeL total hip BMD 0.798 g/cm2, T score -1.7, -3.3% change 10/10/2020: L1-L4 BMD 0.910 g/cm2, T score -2.3, -2.2% changeL femoral Neck BMD 0.719 g/cm2, T score -2.3, -2.2% changeL total hip BMD 0.771 g/cm2, T score -1.9, -3.4% changeFRAX score- MOF 18.9%, Hip fracture 1.9% Calcium Supplements: viactivCalcium in diet: almond milk, no yogurt or cheeseVitamin D intake: 2000 IU dailyBone active meds / SERMs: none Risk factors:Family history of hip fracture: father ?cancer- lung cancer mets or bone cancerNo FH of OP, sister with osteopeniaLow Body Weight: NoFall Risk: {{high intermediate* low}}- did not fall recently, exercising for balanceDrugs that can worsen bone loss:Steroids: Yes- prednisone 2 bursts several years, NoAnti-epileptic medications (phenobardital/pheny toin): NoImmunosuppresants: NoCancer chemotherapy: NoAromatase inhibitors: {Yes No} Use of OCP/HRT/GnRH agonists or antagonist: OCPs for several years Menarche: 14 yearsMenopause: 52 yearsMenstrual problems during reproductive age: nonePregnancies: 1 Stones/Hypercalcemia Sx: noneDouble Jointedness:Exercise : no wt bearingSurgeries: endometriosisSmoking : {{yes* no}}- x 20 years, quit 20 yearsAlcohol Use: moderate use 04/03/2023: Creat 0.8/GFR 87, calcium 9.4, albumin 4.9, vitamin D36.2, CTX 156,12/05/2022: creat 0.8/GFR 88, sparkle 9.3, alb 4.9, alk phos 49, TSH 2.61, PTH 40/Sparkle 9.5, phos 4.3, vit D 32.724 hr urine calcium 280mg Tony Valadez MD [address] [place] [address], [id number], [facility] - [facility]. 06/24/2023 22:52:43 OBGyn Episode No OBEpisode recorded.
--- OUTSIDE RECORDS SUMMARY | 2025-03-31 11:29 | XMS_ITS | Clinical Summary ---
Author Organization [facility] Address [address] [place] [phone] Care Team Providers Care Body Technician/Painter Name Role Phone Unavailable Primary Care Provider Unavailabl e Social History Tobacco Use Types Packs/Day Years Used Date Smoking Tobacco: Never Assessed Comments Unknown Sex and Gender Information Value Date Recorded Sex Assigned at Not on file Legal Sex Female 5:50 PM EST Gender Identity Not on file Sexual Orientation Not on file Plan of Treatment Health Maintenance Due Date Last Done Comments HIV screening 1972 Hepatitis C screening 1977 Tetanus adult (Td q 10,TDAP once) 1979 Breast cancer screening 1999 Lipid disorder screening 1999 Colon cancer screening, Colonoscopy 2004 Diabetes screening 2004 Pneumococcal Vaccine (50+ ye ars) (1 of 1 - PCV) 2009 Shingles vaccine (Shingrix) (1 of 2 - Shingrix (RZV) 2 Dose Standard Series) 2009 Covid-19 vaccine series ( - 2023- season) 2024 Osteoporosis screening (bone density) 2024 Influenza vaccine 08/02/2025 RSV Immunization (1 - 1-dose 75+ series) 2034 Cervical cancer screening Discontinued Meningococcal Vaccine Aged Out No dorian meaghan eligible based on patient's age to complete this topic
--- OUTSIDE RECORDS SUMMARY | 2025-03-31 11:29 | XMS_ITS | Encounter Summary ---
Author Organization [employer] [facility] Address [address] [facility] [address] [place] [address] Care Team Providers Care Healthcare Applications Analyst Name Role Phone Unavailable Primary Care Provider Unavailabl e Encounter Details Date Type Department Care Team (Latest Contact Info) Description 04/15/2019 Abstract [facility] CONVERSION[facility] Dental, Provider, DDS Social History Tobacco [...] Description 04/06/2025 2:00 PM EDT Office Visit [facility] [address] [place] [id number] Shun Nicole, LINDA [address] [place] [address] 08/26/2025 11:00 AM EDT Office Visit [facility] [address] [place] [address] Marly Stark [address] [place] [address] documented as of this encounter Visit Diagnoses Not on filedocumented in this encounter
--- OUTSIDE RECORDS SUMMARY | 2025-03-31 11:29 | XMS_ITS | Encounter Summary ---
Author Organization [facility] Address [address] [place] [phone] Care Team Providers Care University Dean Name Role Phone Unavailable Primary Care Provider Unavailabl e Encounter Details Date Type Department Care Team (Late st Contact Info) Description 11/20/2002 Scanned Document Cardiac Surgery [address] [place] [id number] Cortez Diggs MD [address] [place] [address] [place] [phone] Social History Tobacco Use Types Packs/Day Years Used Date Smoking Tobacco: Never Assessed Comments Unknown Sex and Gender Information Value Date Recorded Sex Assigned at Not on file Legal Sex Female 5:50 PM EST Gender Identity Not on file Sexual Orientation Not on file documented as of this encounter Plan of Treatment Not on file documented as of this encounter Visit Diagnoses Not on filedocumented in this encounter
--- OUTSIDE RECORDS SUMMARY | 2025-03-31 11:29 | XMS_ITS | Clinical Summary ---
Author Organization [employer] Address [address] [facility] 7t [place] [address] Care Team Providers Care Cardiology Coordinator Name Role Phone Unavailable Primary Care Provider Unavailabl e Allergies Active Allergy Reactions Criticality Noted Date Comments Azithromycin Nausea Only,Other 05/26/2018 Yeast infections Ciprofloxacin 02/18/2025 Clarithromycin 05/26/2018 Doxycycline High 02/18/2025 Rash Erythromycin 04/15/2019 Iodine Rash Low 02/18/2025 Ioversol 04/15/2019 Latex Itching,Shortness of breath High 02/19/20 25 Levofloxacin Shortness of breath High 10/09/2017 Molds & Smuts Rash,Shortness of breath High 02/19/20 25 Moxifloxacin 10/09/2017 Procaine 02/18/2025 Venlafaxine Other 10/09/2017 Facial tremors Medications citalopram (CeleXA) 10 MG tablet Take 1 tablet by mouth at bed time. 06/09/2019 Active clonazePAM (KlonoPIN) 1 MG tablet Take 1 tablet by mouth if needed at bedtime. 04/04/2018 Active gabapentin (Neurontin) 600 MG tablet Take 1 tablet by mouth 2 times daily. 01/19/2025 Active Spiriva Respimat 2.5 MCG/ACT inhaler INHALE 2 PUFFS BY MOUTH DAILY FOR 30 DAYS Active montelukast (Singulair) 10 MG tablet Take 1 tablet by mouth Once per day. 05/03/2018 Active Alvesco 160 MCG/ACT inhaler Inhale 2 puffs 2 times daily. 03/28/2018 Active Sodium Fluoride (PreviDent 5000 Booster Plus) 1.1 % paste Dispense pea sized amount brush teeth, spit but don't rinse after. 112 g 1 02/18/2025 Active Encounters Date Type Department Care Team Description 02/18/2025 10:00 AM EDT Office Visit [facility] [address] [place] [phone] Marly Stark 02/15/2025 Travel from Last 3 Months Social History Tobacco Use Types Packs/Day Years Used Date Smoking Tobacco: Never Smokeless Tobacco: Never Tobacco Cessation:Counseling Given: Not Answered Comments Unknown Sex and Gender Information Value Date Recorded Sex Assigned at Female 10/01/2022 10:32 AM EDT Legal Sex Female 10:32 AM EDT Gender Identity Female 10/01/2022 10:32 AM EDT Sexual Orientation Straight 10/01/2022 10 :32 AM EDT Last Filed Vital Signs Vital Sign Reading Time Taken Comments Blood Pressure 122/68 02/18/2025 10:18 AM EDT Pulse 72 02/18/2025 10:18 AM EDT Temperature - - Respiratory Rate - - Oxygen Saturation - - Inhaled Oxygen Concentration - - Weight - - Height - - Body Mass Index - - Plan of Treatment Upcoming Encounters Date Type Department Care Team (Late st Contact Info) Description 04/06/2025 2:00 PM EDT Office Visit [facility] [address] [place] [phone] Shun Nicole, DMD [address] [place] [address] 08/26/2025 11:00 AM EDT Office Visit [facility] [address] [place] [phone] Marly Stark [address] [place] [address] Health Maintenance Due Date Last Done Comments CT Colonography 1959 Colonoscopy 1959 Colorectal Cancer Screening 1959 Depression Screening 1959 FIT DNA/Cologuard 1959 FIT 1959 FOBT 1959 SDOH Screening 1959 Sigmoidoscopy 1959 Alcohol/Substance Use Screening 1971 Hepatitis C Screening 1977 Pap Smear 1980 Cervical Cancer Screening 1989 HPV/Cotest 1989 Mammogram 1999 Pneumococcal Vaccine: 50+ Years (1 of 1 - PCV) 2009 Zoster Vaccines (1 of 2) 2009 Dental Oral Exam 10/14/2022 04/12/2022, , 04/15/2019 Dental X-Ray: Full Mouth 04/13/2025 04/12/2022, 01/30 Dental Prophylaxis 08/22/2025 02/18/2025, 0 04/12/2022, 10/26/2019, Additional history exists Tobacco Screening 02/18/2026 02/18/2025 Dental X-Ray: Bitewings 02/19/2026 02/19/20, 04/12/2022, 04/15/2019, Additional history exists DTaP/Tdap/Td Vaccines (2 - Td or Tdap) 01/30/2034 01/31/2024 RSV Patients and Patients Aged 60 years or older (1 - 1-dose 75+ series) 2034 Hepatitis A Vaccines Aged Out 01/13/2007, 02/06/20 06 No longer eligible based on patient's age to complete this topic Influenza Vaccine Completed 08/18/2024, , 08/24/2022, Additional history exists COVID-19 Vaccine Completed 11/04/2024, 09/2022, 05/19/2022, Additional history exists HIB Vaccines Aged Out [...] patient's age to complete this topic Meningococcal Vaccine Aged Out No dorian meaghan eligible based on patient's age to complete this topic RSV under 20 months Aged Out No longe r eligible based on patient's age to complete this topic Rotavirus Vaccines Aged Out No longer eligible based on patient's age to complete this topic Procedures Procedure Name Priority Date/Time Associated Diagnosis Comments ORAL HYGIENE INSTRUCTIONS Routine 2024 10:00 AM EDT INTRAORAL - PERIAPICAL EACH ADDITIONAL RADIOGRAPHIC IMAGE Routine 02/18/2025 10:00 AM EDT INTRAORAL - PERIAPICAL FIRST RADIOGRAPHIC IMAGE Routine 02/18/2025 10:00 AM EDT BITEWINGS - 4 RADIOGRAPHIC IMAGES Routine 02/18/2025 10:00 AM EDT PROPHYLAXIS - ADULT Routine 02/18/2025 1 0:00 AM EDT CASE PRESENTATION, DETAILED AND EXTENSIVE TREATMENT PLANNING Routine 02/18/2025 10:00 AM EDT INTRAORAL - COMPLETE SERIES OF RADIOGRAPHIC IMAGES Routine 04/12/2022 12:00 AM EDT PERIODIC ORAL EVALUATION - ESTABLISHED PATIENT Routine 04/12/2022 12:00 AM EDT from Last 3 Months or Most Recently Relevant to Health Maintenance [facility] ST[facility] AD[facility]
== END 2025-03-31 10:51 | disposition home or self-care (01) ==
LOC: HO.HPS 10:17
PROVIDERS: PCP Internal Medicine; Visit Provider Hospitalist
DX: J45.40 Moderate persistent asthma, uncomplicated (principal); R05.3 Chronic cough; J31.0 Chronic rhinitis; G47.33 Obstructive sleep apnea (adult) (pediatric); Q32.1 Other congenital malformations of trachea; R06.09 Other forms of dyspnea
CPT/HCPCS: 99214; G2211

== ENCOUNTER 2025-03-31 10:16 | Outpatient (REF) | payer MEDICARE, OTHER, SELFPAY ==
[2025-03-31 11:15] LABS: MANUAL DIFF FLAG NO
[2025-03-31 11:45] LABS: Basophils Percent Auto 0.9 % (0-2); Eosinophils Absolute Auto 0.2 X10*3/uL (0.0-0.4); Eosinophils Percent Auto 3.5 % (0-4); Hematocrit 37.2 % (37.0-47.0); Hemoglobin 12.9 g/dl (12.0-16.0); Imm Gran Abs Auto 0.01 X10*3/uL (0.00-0.03); Imm Gran Pct Auto 0.2 % (0.0-0.4); Lymphocytes Absolute Auto 0.9 X10*3/uL (1.2-4.9); Lymphocytes Percent Auto 21.6 % (20-40); Mean Corpuscular HGB Conc 34.7 g/dl (31.0-35.0); Mean Corpuscular Volume 86.5 fL (80.0-98.0); Mean Platelet Volume 10.6 fL (9.4-12.3); Monocytes Absolute Auto 0.3 X10*3/uL (0.1-1.2); Monocytes Percent Auto 6.8 % (2-11); Neutrophils Absolute Auto 2.8 x10*3/uL (2.0-8.3); Platelet Count 174 X10*3/uL (160-400); Red Cell Distribution Width 12.3 % (11.0-16.0); White Blood Count 4.3 X10*3/uL (4.8-10.8)
[2025-03-31 12:12] LABS: Anion Gap 13 (12-20); Blood Urea Nitrogen 12 mg/dL (9-16); Calcium 9.6 mg/dL (8.4-10.2); Carbon Dioxide 30 mmol/L (22-29); Chloride 103 mmol/L (96-108); Estimated Glomerular Filt Rate > 60; Glucose Random 68 mg/dL (60-115); Potassium 4.2 mmol/L (3.3-5.1); Sodium 142 mmol/L (135-145)
[2025-03-31 12:21] LABS: Erythrocyte Sedimentation Rate 10 MM/HR (0-20)
--- OUTSIDE RECORDS SUMMARY | 2025-03-31 12:36 | XMS_ITS | Encounter Summary ---
Author Organization [facility] Address [address] [place] [phone] Care Team Providers Care Cinder Block Maker Name Role Phone Unavailable Primary Care Provider Unavailabl e Encounter Details Date Type Department Care Team (Late st Contact Info) Description 11/20/2002 Scanned Document Cardiac Surgery [address] [place] [phone] Cortez Diggs MD [address] [place] [address] [place] [phone] Social History Tobacco Use Types Packs/Day Years [...]
--- OUTSIDE RECORDS SUMMARY | 2025-03-31 12:36 | XMS_ITS | Encounter Summary ---
Author Organization [facility] Address [address] [place] [phone] Care Team Providers Care Manager Perioperative Name Role Phone Unavailable Primary Care Provider Unavailabl e Encounter Details Date Type Department Care Team (Late st Contact Info) Description 10/14/2020 Scanned Document Cardiac Surgery at [address] [facility] 2nd [place] [address] Provider, Historical . Social History Tobacco Use [...]
--- OUTSIDE RECORDS SUMMARY | 2025-03-31 12:36 | XMS_ITS | Encounter Summary ---
Author Organization [employer] [facility] Address [address] [facility] 7 [place] [address] Care Team Providers Care Angle Roll Operator Name Role Phone Unavailable Primary Care Provider Unavailabl e Encounter Details Date Type Department Care Team (Latest Contact Info) Description 04/12/2022 Abstract [facility] CONVERSIONS Dental, Provider, DDS Social History [...] Description 04/06/2025 2:00 PM EDT Office Visit [facility] [address] [place] [phone] Shun Nicole, LINDA [address] [place] [address] 08/26/2025 11:00 AM EDT Office Visit [facility] [address] [place] [address] Marly Stark [address] [place] [address] documented as of this encounter Visit Diagnoses Not on filedocumented in this encounter
--- OUTSIDE RECORDS SUMMARY | 2025-03-31 12:36 | XMS_ITS | Clinical Summary ---
Author Organization [employer] Address [address] [place] [phone] Care Team Providers Care Aircraft Electrician Name Role Phone Unavailable Primary Care Provider [...]
--- OUTSIDE RECORDS SUMMARY | 2025-03-31 12:36 | XMS_ITS | Clinical Summary ---
Author Organization [employer] Address [address] [facility] 7t [place] [address] Care Team Providers Care Experience Planning Strategist Name Role Phone Unavailable Primary Care Provider [...] Description 02/18/2025 10:00 AM EDT Office Visit [facility] [address] [place] [phone] Marly Stark 02/15/2025 Travel from Last 3 [...] Description 04/06/2025 2:00 PM EDT Office Visit [facility] [address] [place] [address] Shun Nicole, DMD [address] [place] [address] 08/26/2025 11:00 AM EDT Office Visit [facility] [address] [place] [address] Marly Stark [address] [place] [address] Health Maintenance Due Date Last Done Comments [...] Most Recently Relevant to Health Maintenance Insurance [facility] MEDICAID STAND ADULT
--- OUTSIDE RECORDS SUMMARY | 2025-03-31 12:36 | XMS_ITS | Clinical Summary ---
Author Organization [facility] Address [address] [place] [address] Phone Care Team Providers Care Ibm Bpm Architect Name Role Phone Kayode Sanchez MD Primary Care Provider Allergies Active Allergy Reactions Criticality Noted Date [...] Team Description 03/05/2025 Telephone Gastroenterology - [address] [place] [address] Genny Zamora MA Results 03/04/2025 1:11 PM EDT Anesthesia Event [facility] Endoscopy [address] [place] [phone] Frank Anne MD 03/04/2025 12:03 PM EDT - 03/04/2025 11:59 PM EDT Hospital Encounter [facility] Endoscopy [address] [place] [phone] Hansel Turner MD Claudio, Raymund, CRNA Saliga, Jesse L, MD Colon cancer screening Discharge Disposition: Home or Self Care 02/11/2025 Telephone Gastroenterology - [place] [address] [facility] 175 [facility] [address] [place] [address] Suzette Martinez LPN med review (Colonoscopy and EGD on 03/04/25) 01/26/2025 Telephone Gastroenterology - 299 [facility] 299 [facility] [address] [place] [phone] Hansel Turner MD Advice Only (/) 01/12/2025 Telephone Gastroenterology - 299 [place] 299 [facility] [address] [place] [phone] Hansel Turner MD 01/01/2025 Telephone Gastroenterology - 299 [address] [phone] Hansel Turner MD 01/01/2025 Telephone Gastroenterology - [address] [phone] Hansel Turner MD from Last 3 Months Surgical History Surgery Date Site/Laterality Comments TONSILLECTOMY PROCEDURE: HISTORICAL TONSILLECTOMY EYE SURGERY PROCEDURE: HISTORICAL EYE SURGERY OTHER SURGICAL HISTORY PROCEDURE: EXTRACTION ERUPTED TOOTH/EXR CARDIAC SURGERY CAROTID CARDIAC SURGERY [facility] Medical History Medical History Date Comments Depression 10/05/2017 DX:Depression HOLLI (obstructive sleep apnea) 10/05/2017 DX :HOLLI (obstructive sleep apnea) COPD (chronic obstructive pu lmonary disease) ([facility] V24, [facility] V28) 12/03/2017 DX:COPD (chronic o bstructive pulmonary disease) ([facility]) 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 Narrative 03/04/2025 1:31 PM EDT [facility] GI Patient Name: Flores Oneil Procedure [...] Procedure Code(s): ? --- Professional --- ? 98699, Colonoscopy, flexible; with removal of ? tumor(s), polyp(s), or other lesion(s) by snare ? technique Diagnosis Code(s): ? --- Professional --- ? Z86.010, Personal history of colonic polyps ? D12.8, Benign neoplasm of rectum ? K57.30, Diverticulosis of large intestine without ? perforation or abscess without bleeding CPT copyright 2020 [employer]. All rights reserved. The codes documented in this report are preliminary and upon change consultant review may be revised to meet current compliance requirements. Hansel Turner MD 03/04/2025 1:31:20 PM This report has been signed electronically.Hansel Turner MD Number of Addenda: 0 Note Initiated On: 03/04/2025 1:09 PM Scope In: Scope Out: ? Endoscopy Department at [facility] - [address] [place] [address], ? [place] [phone] Procedure Note Hansel Turner MD - 03/04/2025 [facility] GI Patient Name: Flores Oneil Procedure [...] retroflexion views. Procedure Code(s): --- Professional --- 77631, Colonoscopy, flexible; with removal of tumor(s), polyp(s), or other lesion(s) by snare technique Diagnosis Code(s): --- Professional --- Z86.010, Personal history of colonic polyps D12.8, Benign neoplasm of rectum K57.30, Diverticulosis of large intestine without perforation or abscess without bleeding CPT copyright 2020 [employer]. All rights reserved. The codes documented in this report are preliminary and upon change consultant reviewmay be revised to meet current compliance requirements. Hansel Turner MD 03/04/2025 1:31:20 PM This report has been signed electronically.Hansel Turner MD Number of Addenda: 0 Note Initiated On: 03/04/2025 1:09 PM Scope In: Scope Out: Endoscopy Department at [facility] - [address] [place] [phone] IMPRESSION: - One 5 mm polyp in the distal rectum, removed with a cold snare. Resected and retrieved. - Diverticulosis in the sigmoid colon. - The examination was otherwise normal on directand retroflexion views. Recommendation: - Await pathology results. - Repeat colonoscopy in 5 years for surveillance. us Hansel Turner MD GI~PROCEDURE ORDERABLES Fin al Result * EGD Anesthesia - MAC; [facility] ENDOSCOPY (03/04/2025 1:36 PM EDT) Anatomical Region Laterality Modality Endoscopy 03/04/2025 1:31 PM EDT Impressions 03/04/2025 1:36 PM EDT - Normal mid esophagus. Biopsied. ? - Normal esophagus. ? - Normal stomach. ? - Normal examined duodenum. Recommendation: ?- Await pathology results. ? - Continue present medications. Narrative 03/04/2025 1:36 PM EDT [facility] GI Patient Name: Flores Oneil Procedure [...] Procedure Code(s): ? --- Professional --- ? 68843, Esophagogastroduodenoscopy, flexible, ? transoral; with biopsy, single or multiple Diagnosis Code(s): ? --- Professional --- ? R10.13, Epigastric pain ? R13.10, Dysphagia, unspecified ? K21.9, Gastro-esophageal reflux disease without ? esophagitis CPT copyright 2020 [employer]. All rights reserved. The codes documented in this report are preliminary and upon change consultant review may be revised to meet current compliance requirements. Hansel Turner MD 03/04/2025 1:36:27 PM This report has been signed electronically.Hansel Turner MD Number of Addenda: 0 Note Initiated On: 03/04/2025 1:31 PM Scope In: Scope Out: ? Endoscopy Department at [facility] - [address] [place] [address], ? [place] [phone] Procedure Note Hansel Turner MD - 03/04/2025 [facility] GI Patient Name: Flores Oneil Procedure [...] was normal. Procedure Code(s): --- Professional --- 30229, Esophagogastroduodenoscopy, flexible, transoral; with biopsy, single or multiple Diagnosis Code(s): --- Professional --- R10.13, Epigastric pain R13.10, Dysphagia, unspecified K21.9, Gastro-esophageal reflux disease without esophagitis CPT copyright 2020 [employer]. All rights reserved. The codes documented in this report are preliminary and upon change consultant reviewmay be revised to meet current compliance requirements. Hansel Turner MD 03/04/2025 1:36:27 PM This report has been signed electronically.Hansel Turner MD Number of Addenda: 0 Note Initiated On: 03/04/2025 1:31 PM Scope In: Scope Out: Endoscopy Department at [facility] - [address] [place] [phone] IMPRESSION: - Normal mid esophagus. Biopsied. - [...] for intraepithelial eosinophils. 03/05/2025 10:56 AM EDT [facility] Gross Description A. Large [...] one slide. BARBARA 03/05/2025 10:56 AM EDT [facility] Disclaimer Unless otherwise specified, all tissue is 10% NB formalin fixed and paraffin embedded. 03/05/2025 10:56 AM EDT [facility] Tissue Rectum structure / Unknown 03/04/2025 1:28 PM EDT 03/04/2025 3:52 PM EDT Tissue specimen (specimen) Esophageal structure / Unknown 03/04/2025 1:33 PM EDT 03/04/2025 3:52 PM EDT us Hansel Turner MD LAB PATHOLOGY ORDERABLES Fi nal Result [facility] [address] [place] [address], from Last 3 Months Insurance MEDICARE [facility] Care Teams Ibm Bpm Architect Relationship Specialty Start Date End Date Kayode Sanchez MD [address] [place] [address] PCP - General Internal Medicine 03/04/25
--- OUTSIDE RECORDS SUMMARY | 2025-03-31 12:36 | XMS_ITS | Data Portability ---
Author Organization [place] - [facility], Allergy Address [address] [address] Care Team Providers Care Justowriter Operator Name Role Phone MCCURDY, MAURA Primary Care Provider [phone] Assessment Encounter Date Assessment Date Assessment LastModified by Organization Details LastModified Time 05/04/2024 05/04/2024 Recommendations: Follow up with referring provider. Amplification, Au, pending medical clearance. Not available 05/04/2024 14:56:47 05/04/2024 05/04/2024 Today we discuss ed the pathophysiology of tinnitus and the absence of consistently successful pharmacologic treatments for tinnitus. We discussed masking strategies to decrease awareness of the tinnitus, including using a white noise machine, music, or television.? ? ?We discussed how exposure to loud noise can worsen tinnitus so I recommended hearing protection. We also discussed other ways to potentially help reduce awareness of tinnitus including avoidance of caffeine, salty meals and NSAIDs. In light of the underlying sensorineural hearing loss, the patient may want to consider amplification. This would not only help with hearing, but can also be instrumental in acting as a masking source to help reduce the awareness of tinnitus. Patient would like to follow-up in the future to discuss her nasal congestion. She also would like to make a future appointment thereafter to discuss the small nodule in the anterior aspect of her right parotid. She recalls it was worked up previously around 2021. Unfortunately at today's visit I was not prepared with her old records to review as we just converted over our medical record system. [email or web address] Not available 05/04/2024 15:29:17 06/10/2024 06/10/2024 Reviewed recent MRI with no abnormality of the parotid gland. Likely the palpable nodule is a normal portion of her salivary duct passing over the masseter. No specific intervention is recommended. Her other major concern regarding nasal congestion may be multifactorial. There is likely a component of septal deviation, turbinate hypertrophy as well as nasal valve collapse. She had many questions hoping to guarantee a resolution of her nasal congestion and postnasal drip. Unfortunately as I only perform septoplasty and turbinate reduction I was not able to comment adequately on the value of the nasal valve repair. Therefore offered referral to [facility] for her to see a functional plastic surgeon who may be able to complete the work and offer a description of their experience of a series of patients outcomes. She seems to have some anxiety about her healing process and postnasal drip [email or web address] Not available 06/10/2024 16:15:09 Plan of Treatment Reminders Order Date Submit Date Provider Last Modified By Organization Details Last Modified Time Details Appointments None recorded. Lab None recorded. Referral rhinology referral - Appt 07/24 @ 10:10am 2023 024 [email or web address] [facility], [address], [facility], [place], [address], 16:47:19 Procedures None recorded. Surgeries None recorded. Imaging None recorded. Medication Orders None recorded. Patient TargetsNo targets recorded. Patient InstructionsNo instructions recorded. Reason for Referral Rhinology Referral for Incom petence of nasal valve Appt 07/24 @ 10:10am Referring Physician: Cesar Andersen, Otolaryngology, Encounter Date: 06/10/2024 Results Created Date Observation Date Name Description Value Unit Range Abnormal Flag Note LastModifiedBy Organization Detail LastModifiedTime 05/13/20 audio gram No observ ation record ed. BARCODE Not Available 2023 11:43:07 06/11/20 24 12/12/2016 CT, sinus es, w/o contr ast No observ ation record ed. [email or web address] Not Available 06/11 11:06:58 07/22/20 24 01/02/2022 imagi ng/di agnos tic resul t No observ ation record ed. [email or web address] Not Available 01:07:03 07/22/20 24 02/14/2022 imagi ng/di agnos tic resul t No observ ation record ed. [email or web address] Not Available 01:07:04 07/22/20 24 02/14/2022 audio gram No observ ation record ed. [email or web address] Not Available 01:07:36 Result Notes None recorded. Problems Name Problem SNOMED Code Status Onset Date Resolution Date Notes Provider Name and Address Organization Details Recorded Time Obstructi ve sleep apnea syndrome 31597588 Active 2014 Obstructi ve sleep apnea (adult) (pediatri c); Note: Date Diagnosed : 03/03/2015 3:57 PM (327.23) ; Start Date : 5 Obstruc tive sleep apnea (adult) (pediatri c); Note: Date Diagnosed : 06/02/2015 11:10 AM (G47.33) [mapped from ICD9 code: 327.23] Not Available formerly [facility] 4 02:35:49 Allergic rhinitis 51479819 Active 2014 Allergic Rhinitis; Note: Date Diagnosed : 12/18/2014 11:33 AM (477.9) Not Available formerly [facility] 4 02:35:58 Sensorine ural hearing loss of bilateral ears 138851160 Active 2015 Sensorine ural hearing loss, bilateral ; Note: Date Diagnosed : 09/05/2016 1:36 PM (H90.3) Not Available formerly [facility] 4 02:35:53 Dizziness and giddiness 149010952 Active 2015 Dizziness and giddiness ; Note: Date Diagnosed : 09/05/2016 1:36 PM (R42) Not Available formerly [facility] 4 02:35:52 Impacted cerumen of bilateral ears 22319004300 95216 Active 2021 Impacted cerumen, bilateral ; Note: Date Diagnosed : 12/14/2021 6:19 PM (H61.23) Impacte d cerumen, bilateral ; Note: Date Diagnosed : 09/05/2016 1:44 PM (H61.23) ; Start Date : 6 Not Available formerly [facility] 4 02:35:54 Chronic rhinitis 72926252 Active 2015 Chronic rhinitis; Note: Date Diagnosed : 11/08/2016 2:03 PM (J31.0) Not Available formerly [facility] 4 02:35:47 Bilateral tinnitus 52416713059 02 Active 2021 Tinnitus, bilateral ; Note: Date Diagnosed : 12/14/2021 6:19 PM (H93.13) Note: Date Diagnosed : 12/14/2021 6:19 PM (H93.13) CESAR ANDERSEN MD [address] [place] [address], [place], [address] , [facility] - [facility] 4 15:15:05 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; Note: Date Diagnosed : 12/14/2021 6:19 PM (D11.0) Note: Date Diagnosed : 12/14/2021 6:19 PM (D11.0) CESAR ANDERSEN MD [address] [place] [address], [place], [address] , [facility] 4 12:20:32 Disorder of nasal sinus 2728456 Active 2015 Other specified disorders of nose and nasal sinuses; Note: Date Diagnosed : 6 12:49 PM (J34.8) Not Available formerly [facility] 4 02:35:55 Disorder of the nose 75951903 Active 2015 Other specified disorders of nose and nasal sinuses; Note: Date Diagnosed : 6 12:49 PM (J34.8) Not Available formerly [facility] 4 02:35:55 Snoring 20903060 Active 2014 Snoring; Note: Date Diagnosed : 01/13/2015 11:14 AM (786.09) Not Available formerly [facility] 4 02:35:56 Asthma 555420381 Active 2014 Asthma: unspecifi ed; Note: Date Diagnosed : 12/18/2014 11:33 AM (493.90) Not Available formerly [facility] 4 02:35:57 Chronic sinusitis 70553128 Active 2014 Sinusitis , chronic, NOS; Note: Date Diagnosed : 12/18/2014 11:33 AM (473.9) Not Available formerly [facility] 4 02:36:00 Deviated nasal septum 550281179 Active 2014 Deviated nasal septum; Note: Date Diagnosed : 12/18/2014 11:33 AM (470) Note: Date Diagnosed : 12/18/2014 11:33 AM (470) ; Start Date : 5 Deviate d nasal septum; Note: Date Diagnosed : 06/02/2015 11:10 AM (J34.2) [mapped from ICD9 code: 470] Note: Date Diagnosed : 06/02/2015 11:10 AM (J34.2) [mapped from ICD9 code: 470] CESAR ANDERSEN MD 100 [facility] [place] [address], [place], [address] , [place] - [facility] 4 12:20:11 Nasal congestio n 19599063 Active 2023 CESAR ANDERSEN MD 100 [facility],[place] [address], [place], [address] , [place] - [facility] 4 12:20:19 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 Procedures Surgical History Date Name Laterality Status Provider Name and Address Organization Details Recorded Time 05/04/2024 Comp Audio with Tymps (06177 & 21979) completed Eloy CONNOR [address], [place], [address], [place] - [facility] 05/04/2024 14:54:22 Imaging Results Imaging Date Name Status [facility]Modified by [facility] Details LastModified Time 05/13/2024 audiogram completed BARCODE Information no t available 05/13/2024 11:43:07 12/12/2016 CT, sinuses, w/o contrast completed [email or web address] Information not available 06/11/2024 11:06:58 01/02/2022 imaging/diagno stic result completed Information not available 07/22/2024 01:07:03 02/14/2022 imaging/diagno stic result completed Information not available 07/22/2024 01:07:04 02/14/2022 audiogram completed Information not available 07/22/2024 01:07:36 Procedure Notes None recorded. Medical Equipment None Reported. Allergies Allergen ID Allergen Name Allergen Category Reaction Reaction Severity Criticality Documentation Date Start Date Code Code System Note Provider Name and Address Organization Details Recorded Time 74349 moxifloxa birgit medicatio n other Not available Not available 04/14/2024 47794 2 RxNorm React ion: unkno wn, unspe cifie d;; Not Available [facility] 4 01:03:28 50821 Iodinated contrast media (substanc e) medicatio n other Not available Not available 04/14/2024 85895 2004 SNOMED React ion: unkno wn, unspe cifie d;; Not Available [facility] 4 01:03:31 03463 Cipro medicatio n other Not available Not available 04/14/2024 29125 3 RxNorm React ion: other react ion, Unkno wn; Not Available [facility] 4 01:03:33 Medications Name Sig Start Date Stop Date Status Note LastModified by Organization Details LastModified Time naltrexon e 4.5mg capsules TAKE 1 CAPSULE BY MOUTH EVERY DAY active Not Available Not Available No t Available tretinoin 0.1 % topical cream APPLY TO FACE AT BEDTIME TOPICALL Y active Not Available Not Available No t Available budesonid e 32 mcg/actua tion nasal spray 2 spray into both nostrils 12/14 completed Medicati on ID: [id number] P rescribe d By Name: BAILEY Read nd Name: medardo wayne Send Method: E-Prescr ibed Sub s Allowed: subs OK Medic ationGen ericName : medardo wayne Not Available Not Available Not Available fluconazo le 100 mg tablet TAKE 1 TABLET BY MOUTH EVERY DAY DAILY FOR 7 DAYS active Not Available Not Available No t Available clotrimaz ole 10 mg tara 12/14 completed Medicati on ID: [id number] Du ration Value: 5 Brand Name: clotrima zole Sen d Method: E-Prescr ibed Sub s Allowed: subs OK Speci al Instruct ion: TAKE 1 TABLET BY MOUTH 5 TIMES A DAY Medi cationGe nericNam e: clotrima zole Not Available Not Available Not Available nystatin 100,000 unit/mL oral suspensio n SWISH AND SWALLOW 5ML FOUR TIMES A DAY FOR 7 DAYS active Not Available Not Available No t Available prednison e 10 mg tablet PLEASE SEE ATTACHED FOR DETAILED DIRECTIO NS active Not Available Not Available No t Available gabapenti n 600 mg tablet TAKE 1 TABLET BY MOUTH TWICE A DAY active Not Available Not Available No t Available doxycycli ne hyclate 100 mg capsule TAKE 1 CAPSULE BY MOUTH TWICE A DAY active Not Available Not Available No t Available albuterol sulfate 2.5 mg/3 mL (0.083 %) solution for nebulizat ion 12/14 completed Medicati on ID: [id number] Du ration Value: 25 Brand Name: albutero l sulfate Send Method: E-Prescr ibed Sub s Allowed: subs OK Speci al Instruct ion: INHALE 3 ML VIAL VIA NEBULIZE R MACHINE EVERY 6 HOURS Me dication GenericN mindi: albutero l sulfate Not Available Not Available Not Available alprazola m 1 mg tablet TAKE 1 TABLET BY MOUTH 1 HOUR PRE-PROC EDURE MAY REPEAT ONE TIME active Not Available Not Available No t Available fluconazo le 150 mg tablet TAKE 1 TABLET BY MOUTH. REPEAT IN 72 HOURS. active Not Available Not Available No t Available hydroquin one 4 % topical cream 2021 active Medicati on ID: [id number] B rand Name: hydroqui none Sen d Method: E-Prescr ibed Sub s Allowed: subs OK Speci al Instruct ion: APPLY TO FACE ONCE DAILY X 3 MONTHS TAKE 1 MONTH BREAK THEN REPEAT. STOP IF HYPERPIG MENTATIO N NOTED Me dication GenericN mindi: hydroqui none Not Available Not Available Not Available metronida zole 0.75 % (37.5 mg/5 gram) vaginal gel INSERT 1 APPLICAT ORFUL VAGINALL Y EVERY DAY AT BEDTIME FOR 5 DAYS active Not Available Not Available No t Available famotidin e 40 mg tablet 2021 active Medicati on ID: [id number] B rand Name: famotidi ne Send Method: E-Prescr ibed Sub s Allowed: subs OK Speci al Instruct ion: TAKE 1 TABLET BY MOUTH AT BEDTIME Medicati onGeneri cName: famotidi ne Not Available Not Available Not Available prednison e 20 mg tablet TAKE 2 TABS DAILY X 5 DAYS, THEN 1 TABLET DAILY X 5 DAYS active Not Available Not Available No t Available terconazo le 0.8 % vaginal cream INSERT 1 APPLICAT ORFUL VAGINALL Y AT BEDTIME FOR 3 DAYS active Not Available Not Available No t Available clonazepa m 1 mg tablet TAKE 1 TABLET BY MOUTH EVERY DAY AT BEDTIME NEEDED active Not Available Not Available No t Available Nexium 40 mg capsule,d elayed release 12/14 completed Medicati on ID: [id number] Du ration Value: 90 Brand Name: Nexium S end Method: E-Prescr ibed Sub s Allowed: subs OK Speci al Instruct ion: TAKE 1 TO 2 CAPSULES BY MOUTH EVERY DAY Medi cationGe nericNam e: Nexium Not Available Not Available Not Available clopidogr el 75 mg tablet TAKE 1 TABLET BY MOUTH EVERY DAY active Not Available Not Available No t Available aspirin 81 mg tablet,de layed release TAKE 1 TABLET BY MOUTH EVERY DAY active Not Available Not Available No t Available doxycycli ne monohydra te 100 mg tablet TAKE 1 TABLET BY MOUTH TWICE A DAY FOR 14 DAYS active Not Available Not Available No t Available ciclopiro x 8 % topical solution 2021 active Medicati on ID: [id number] B rand Name: ciclopir ox Send Method: E-Prescr ibed Sub s Allowed: subs OK Speci al Instruct ion: PLEASE SEE ATTACHED FOR DETAILED DIRECTIO NS Medic ationGen ericName : ciclopir ox Not Available Not Available Not Available famotidin e 20 mg tablet TAKE 1 TABLET BY MOUTH TWICE A DAY active Not Available Not Available No t Available Celexa 20 mg tablet TAKE 1 TABLET BY MOUTH EVERY DAY active Not Available Not Available No t Available gabapenti n 300 mg capsule 02/14 completed Medicati on ID: [id number] B rand Name: gabapent in Send Method: E-Prescr ibed Sub s Allowed: subs OK Medic ationGen ericName : gabapent in Not Available Not Available Not Available budesonid e 0.5 mg/2 mL suspensio n for nebulizat ion INHALE THE CONTENTS OF 1 VIAL VIA NEBULIZE R ONCE DAILY FOR 30 DAYS (J45.40) active Not Available Not Available No t Available montel[address] st 10 mg tablet TAKE 1 TABLET BY MOUTH EVERY DAY active Not Available Not Available No t Available Iophen C-NR 10 mg-100 mg/5 mL oral liquid 01/13 completed Medicati on ID: [id number] Du ration Value: 3 Reason: () Brand Name: Iophen C-NR Sen d Method: E-Prescr ibed Sub s Allowed: subs OK Speci al Instruct ion: TAKE 5 TO 10 MLS BY MOUTH EVERY 4 TO 6 HOURS NEEDED FOR COUGH Me dication GenericN mindi: Iophen C-NR Not Available Not Available Not Available levalbute rol 1.25 mg/3 mL solution for nebulizat ion INHALE 3 ML TWICE A DAY active Not Available Not Available No t Available azelastin e 137 mcg (0.1 %) nasal spray USE 1-2 SPRAYS TO EACH NOSTRIL TWICE A DAY NEEDED active Not Available Not Available No t Available epinephri ne 0.3 mg/0.3 mL injection , auto-inje ctor USE DIRECTED FOR ANAPHYLA XIS THEN CALL 911 active Not Available Not Available No t Available estradiol 0.01% (0.1 mg/gram) vaginal cream PLACE 0.5 GM EXTERNAL LY ON AFFECTED AREA 3 TIMES WEEKLY active Not Available Not Available No t Available methylpre dnisolone 4 mg tablets in a dose pack TAKE 6 TABLETS ON DAY 1 DIRECTED ON PACKAGE AND DECREASE BY 1 TAB EACH DAY FOR A TOTAL OF 6 DAYS active Not Available Not Available No t Available Nasal Decongest ant (pseudoep hedrine) 30 mg tablet 01/13 completed Medicati on ID: [id number] Du ration Value: 8 Reason: () Brand Name: Nasal Deconges tant (pseudoe ph) Send Method: E-Prescr ibed Sub s Allowed: subs OK Speci al Instruct ion: TAKE 1 TABLET BY MOUTH EVERY 8 HOURS NEEDED M edrogertio nGeneric Name: Nasal Deconges tant (pseudoe ph) Not Available Not Available Not Available Celexa 40 mg tablet 12/14 completed Medicati on ID: [id number] Du ration Value: 30 Brand Name: Celexa S end Method: E-Prescr ibed Sub s Allowed: subs OK Speci al Instruct ion: TAKE 1 TABLET BY MOUTH EVERY DAY Medi cationGe nericNam e: Celexa Not Available Not Available Not Available dicyclomi ne 10 mg capsule TAKE 1 CAPSULE BY MOUTH 3 TIMES A DAY NEEDED active Not Available Not Available No t Available loratadin e 10 mg tablet TAKE 1 TABLET EVERY DAY NEEDED FOR ALLERGIE S active Not Available Not Available No t Available ipratropi um bromide 0.02 % solution for inhalatio n 2.5 ML INHALED 2 TIMES A DAY NEEDED FOR SHORTNES S OF BREATH OR WHEEZING USE WITH LEVALBUT JACE active Not Available Not Available No t Available amoxicill in 875 mg-potass ium clavulana te 125 mg tablet 01/13 completed Medicati on ID: [id number] Du ration Value: 10 Reason: () Brand Name: amoxicil osvaldo-pot clavulan ate Send Method: E-Prescr ibed Sub s Allowed: subs ASMITA Zavalai al Instruct ion: TAKE 1 TABLET BY MOUTH EVERY 12 HOURS FOR 10 DAYS. Me dication GenericN mindi: amoxicil osvaldo-pot clavulan ate Not Available Not Available Not Available azithromy birgit 500 mg tablet TAKE 1 TABLET BY MOUTH EVERY DAY FOR 5 DAYS active Not Available Not Available No t Available Vitamin D3 25 mcg (1,000 unit) tablet TAKE 2 TABLETS BY MOUTH ONCE DAILY FOR 30 DAYS active Not Available Not Available No t Available cyclobenz aprine 5 mg tablet TAKE 1 TABLET BY MOUTH EVERY DAY AT BEDTIME NEEDED active Not Available Not Available No t Available duloxetin e 30 mg capsule,d elayed release 2021 active Medicati on ID: [id number] B rand Name: duloxeti ne Send Method: E-Prescr ibed Sub s Allowed: subs OK Speci al Instruct ion: TAKE 1 CAPSULE BY MOUTH EVERY DAY Medi cationGe nericNam e: duloxeti ne Not Available Not Available Not Available levalbute rol HFA 45 mcg/actua tion aerosol inhaler INHALE 2 PUFFS EVERY 6 HOURS NEEDED FOR SHORTNES S OF BREATH OR WHEEZING X30 DAYS active Not Available Not Available No t Available chlorhexi dine gluconate 0.12 % mouthwash SWISH WITH 15 MLS FOR 20 SECONDS TWICE A DAY SPIT OUT EXCESS, NO EATING/D RINKING FOR 30 MIN AFTER active Not Available Not Available No t Available Symbicort 160 mcg-4.5 mcg/actua tion HFA aerosol inhaler 12/14 completed Medicati on ID: [id number] Du ration Value: 90 Brand Name: Symbicor t Send Method: E-Prescr ibed Sub s Allowed: subs OK Speci al Instruct ion: INHLAE 2 PUFFS TWICE A DAY Medi cationGe nericNam e: Symbicor t Not Available Not Available Not Available Mucinex 1,200 mg tablet, extended release 12/14 completed Medicati on ID: [id number] Br and Name: Mucinex Send Method: E-Prescr ibed Sub s Allowed: subs OK Medic ationGen ericName : Mucinex Not Available Not Available Not Available Dramamine Less Drowsy 25 mg tablet Take 1 tablet by mouth every eight hours as needed 12/14 completed Medicati on ID: [id number] D uration Value: 7 Brand Name: Dramamin e Less Drowsy S end Method: E-Prescr ibed Sub s Allowed: subs OK Medic ationGen ericName : Dramamin e Less Drowsy Not Available Not Available Not Available Omnaris 50 mcg nasal spray 2021 active Medicati on ID: [id number] B rand Name: Omnaris Send Method: E-Prescr ibed Sub s Allowed: subs OK Medic ationGen ericName : Omnaris Not Available Not Available Not Available cholecalc iferol (vitamin D3) 50 mcg (2,000 unit) tablet TAKE 1 TABLET BY MOUTH EVERY DAY active Not Available Not Available No t Available Alvesco 160 mcg/actua tion aerosol inhaler INHALE 2 PUFFS BY MOUTH TWICE DAILY active Not Available Not Available No t Available calcium 315 mg (as citrate)- vitamin D3 6.25 mcg (250 unit) tablet TAKE 1 TABLET BY MOUTH TWICE A DAY active Not Available Not Available No t Available GaviLyte- G 236 gram-22.7 4 gram-6.74 gram-5.86 gram oral solution MIX DIRECTED THEN DRINK 8 OUNCES EVERY 15 MINUTES UNTIL FINISHED active Not Available Not Available No t Available Gavilax 17 gram/dose oral powder MIX 17GM WITH 8 OUNCES OF FLUID ORALLY ONCE A DAY active Not Available Not Available No t Available Spiriva Respimat 2.5 mcg/actua tion solution for inhalatio n INHALE 2 PUFFS BY MOUTH DAILY active Not Available Not Available No t Available Trulance 3 mg tablet TAKE 1 TABLET BY MOUTH EVERY DAY active Not Available Not Available No t Available Vitals Date Recorded Body height Body mass index (BMI) Body weight Provider Name and Address Organization Details Last Updated DateTime 06/10/2024 157.48 cm 22.9 kg/m2 88678.05 g [facility] 06/10/2024 15:30:00 Date Recorded Body height Body mass index (BMI) Body weight Provider Name and Address Organization Details Last Updated DateTime 05/04/2024 157.48 cm 22.9 kg/m2 79467.05 g [facility] 05/04/2024 15:02:24 Social History None recorded. Functional Status None recorded. Mental Status None recorded. Family History Nothing Reported. Medical History No medical history recorded. Gynecological HistoryNo gynecological history recorded. Obstetrics History GPAL:G 0 P 0 0 0 0 Past Encounters Encounter ID Performer Location Encounter Start Date Encounter Closed Date Diagnosis/Indication Diagnosis SNOMED-CT Code Diagnosis ICD10 Code Diagnosis Note [id number] CESAR ANDERSEN MD [facility] [address] [address] 05/04/2024 14:15:30 05/04/2024 15:30:13 Bilateral tinnitus 8975991477 102 H93.13 Sensorineu ral hearing loss of bilateral ears 366082418 H90.3 Nasal congestion 8970936 0 R09.81 Neoplasm o f parotid gland 625639411 D49.0 [id number] Eloy CONNOR [facility] [address] [place] [address] 05/04/2024 14:51:25 05/06/2024 23:39:53 Bilateral tinnitus 2714277683 102 H93.13 Sensorineu ral hearing loss of bilateral ears 868798067 H90.3 Audiologic al evaluation results: Right ear: {{Normal M ild Modera te Moderat gui-severe * Severe P rofound}} {{hearing sloping to a mild slopi ng to a moderate s loping to moderately severe slo ping to severe slo ping to profound f lat high frequency* low frequency mid frequency cookie bite stark curve}} {{with sen sorineural hearing loss with* cond uctive hearing loss with mixed hearing loss with}} {{excellen t* good fa ir poor no t measurable }} word recognitio n. Left ear: {{Normal M ild Modera te Moderat gui-severe Severe* P rofound}} {{hearing sloping to a mild slopi ng to a moderate s loping to moderately severe slo ping to severe slo ping to profound f lat high frequency* low frequency mid frequency cookie bite stark curve}} {{with sen sorineural hearing loss with* cond uctive hearing loss with mixed hearing loss with}} {{excellen t* good fa ir poor no t measurable }} word recognitio n. Tympanomet ry: Right Ear:{{Type A* Type As Type Ad Type C Type C, shallow & rounded Ty pe B Type B with large volume Cou ld not maintain a hermetic seal}} Left Ear:{{Type A* Type As Type Ad Type C Type C, shallow & rounded Ty pe B Type B with large volume Cou ld not maintain a hermetic seal}} [id number] CESAR ANDERSEN MD [facility] [address] [place] [address] 06/10/2024 15:22:20 06/10/2024 16:13:56 Deviated nasal septum [id number] J34.2 Nasal congestion [id number] R09.81 Benign aden plasm of parotid gland 93197807 D11.0 Incompeten ce of nasal valve [id number] J34.89 Health Concerns Section Related Observation LastModified by Organization Detai ls LastModified Time None Recorded Concern Status LastModified by Organization Details LastModified Time None Recorded Advance Directives Directive None Recorded Payers Encounter Date Sequence Insurance Name Policy Number Policy Christiansen Covered Member ID Christiansen Member ID Guarantor Name 05/04/2024 1 MEDICARE B-OR: [facility] Flores A Clarice [id number] Flores A Clarice 05/04/2024 2 [facility] - MEDICARE ENHANCE (INDEMNITY PLAN) Flores A Clarice [id number] Flores A Clarice 05/04/2024 1 MEDICARE B-OR: [facility] Flores A Clarice [id number] Flores A Clarice 05/04/2024 2 [facility] - MEDICARE ENHANCE (INDEMNITY PLAN) Flores A Clarice [id number] Flores A Clarice 06/10/2024 1 MEDICARE B-OR: [facility] Flores A Clarice [id number] Flores A Clarice 06/10/2024 2 [facility] - MEDICARE ENHANCE (INDEMNITY PLAN) Flores A Clarice [id number] Flores A Clarice Notes Date Note Type Note Provider Name and Address Organization Details Recorded Time 4 text/html tinnitus bilateral non pulsatile high pitchworse in past 4 monthshearing losssleep - poor quality, not using her CPAPcaffeine - 1 cup decaf, 1 soda dailystress - high,recently diagnosed with brain aneurysm03/04/24 MRA/MRV [facility] - 3x3mm wide necked aneurysm arising from inferior aspect of superior cavernous segment of right ICA. 4x3mm aneurysm projecting inferiorly from superior cavernous segment of left [facility] advised observation CESAR ANDERSEN MD [address] [place] [address], [place], [address], [facility] 05/04/2024 15:29:33 4 text/html Audiological Evaluation HPIReported bypatient.Hearing loss perceived:both ears: no differences noted between ears Onset:gradual Use of amplification or other hearing devices:none (does not use amplification) Tinnitus reported:both ears Balance symptoms reported:no report of dizziness Eloy CONNOR [address] [facility] [address], [place], [address], [place] - [facility] 05/04/2024 14:57:50 text/html parotid nodulepreviously workup with Dr Bran felt to be c/w intraparotid LNrecalls it has been present for 8-10 yrs01/02/22 MRI face at [place] - normal parotid tissue with no mass. patchy T2 hyperintense signal noted in cheeks bilaterally suggestive of cosmetic injections06/05/2024 MRI soft tissue face and neck with and without contrast at [facility] shows no mass, inflammatory change, lymphadenopathy or other concerning imaging abnormality of the neck. 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 No lesions of the parotid. nasal congestion chronic12/12/16 CT sinus at [facility] - normal sinus, septum to left, degenerative changes of TMJ01/04/15 CT sinus at [facility] - normal sinus, septum to left, degenerative changes of TMJpreviously offered septoplasty w nasal valve graft by Dr Moctezuma and plastic surgeryPNDcongestion fluctuates left to rightnotes nostrils collapse with inhaletried budesonide, nasal saline, astelin, allergy shots, recently diagnosed with brain aneurysm03/04/24 MRA/MRV [facility] - 3x3mm wide necked aneurysm arising from inferior aspect of superior cavernous segment of right ICA. 4x3mm aneurysm projecting inferiorly from superior cavernous segment of left [facility] - advised observation CESAR ANDERSEN MD [address] [facility] [address], [place], [address], [place] - [facility] 06/10/2024 16:16:25 OBGyn Episode No OBEpisode recorded.
--- OUTSIDE RECORDS SUMMARY | 2025-03-31 12:36 | XMS_ITS | Encounter Summary ---
Author Organization [facility] Address [address] [place] [address] Care Team Providers Care Media Manager Name Role Phone Unavailable Primary Care Provider Unavailabl e Encounter Details Date Type Department Care Team (Latest Contact Info) Description 04/15/2019 Abstract [facility] CONVERSIONS Dental, Provider, DDS Social History [...] Description 04/06/2025 2:00 PM EDT Office Visit [facility] [address] [place] [id number] Shun Nicole, LINDA [address] [place] [address] 08/26/2025 11:00 AM EDT Office Visit [facility] [address] [place] [address] Marly Stark [address] [place] [address] documented as of this encounter Visit Diagnoses Not on filedocumented in this encounter
[2025-04-01 22:58] LABS: Immunoglobulin E 12 kU/L (<OR=114)
[2025-04-02 12:33] LABS: IgA 55 mg/dL (70-320); IgG 967 mg/dL (600-1540); IgM 96 mg/dL (50-300)
[2025-04-07 13:48] LABS: Asperg fumigatus Precip Abs NEGATIVE (NEGATIVE); Micropoly faeni Abs NEGATIVE (NEGATIVE); Pigeon serum Abs NEGATIVE (NEGATIVE); Saccharo pora viridis Abs NEGATIVE (NEGATIVE); Thermo candidus Abs NEGATIVE (NEGATIVE); Thermoa vulgaris #1 NEGATIVE (NEGATIVE)
== END 2025-03-31 10:17 | disposition home or self-care (01) ==
LOC: HO.LAB 10:16
PROVIDERS: PCP Internal Medicine; Visit Provider Hospitalist
DX: J31.0 Chronic rhinitis (principal); J01.90 Acute sinusitis, unspecified; J45.40 Moderate persistent asthma, uncomplicated; R91.8 Other nonspecific abnormal finding of lung field; R05.3 Chronic cough
CPT/HCPCS: 36415; 80048; 82784; 82785; 85025; 85652; 86331; 86606; 86609; 99212

== ENCOUNTER 2025-05-11 10:59 | Outpatient (AMB) | payer MEDICARE, OTHER, SELFPAY ==
[2025-05-11 11:25] VITALS: BMI 23.7
--- NOTE | 2025-05-11 11:25 | A.OFFVIS_ITS ---
Vital Signs 05/11/25 11:25 Height 5 ft 1 in Weight 125 lb 10.616 oz BMI 23.7 Intake Visit Reasons: dupixent teaching Allergies azithromycin Allergy (Severe, Verified 05/11/25 11:) Palpitations ciprofloxacin [From CIPRO] Allergy (Severe, Verified 05/11/25 11:) Palpitations Iodinated Contrast Media [IODINATED CONTRAST MEDIA] Allergy (Unknown, Verified 05/11/25 11:) RASH levofloxacin [From LEVAQUIN] Allergy (Unknown, Verified 05/11/25:) DIFFICULTY BREATHING moxifloxacin [From AVELOX] Allergy (Unknown, Verified 05/11/25 11:25) DIARRHEA venlafaxine [From EFFEXOR] Allergy (Unknown, Verified 05/11/25 11:) SWELLING amoxicillin [From Augmentin] Adverse Reaction (Severe, Verified 05/11/25:25) Diarrhea clavulanic acid [From Augmentin] Adverse Reaction (Severe, Verified 05/11/25:) Diarrhea Medication List - Last Reconciled 05/11/25 by Selina Christian LPN budesonide 0.5 mg (2 mL) inhalation DAILY 30 days budesonide 0.5 mg (2 mL) inhalation DAILY 30 days cholecalciferol (vitamin D3) 25 mcg PO DAILY ciclesonide 160 mcg/actuation (Alvesco) 2 puffs PO BID citalopram (Celexa) 20 mg PO DAILY clonazepam 1 mg PO BEDTIME PRN dupilumab (Dupixent) loading dose: 600mg SC x 1, then 300mg SC every 2 weeks 4 weeks epinephrine 1 IM famotidine 40 mg PO BEDTIME gabapentin (Neurontin) 600 mg PO TID ipratropium bromide 2.5 mL inhalation BID PRN lactobacillus combination no.8 (Adult Probiotic) 3,000 mmu cells PO DAILY levalbuterol HCl 1.25 mg (3 mL) inhalation BID levalbuterol tartrate 45 mcg/actuation 2 puffs inhalation Q6H PRN loratadine 10 mg PO DAILY montelukast 10 mg PO BEDTIME naltrexone 50 mg PO DAILY nebulizers As directed plecanatide (Trulance) 3 mg PO DAILY sharps bin-insulin syrin-needl 1 mL 30 x 1/2 As directed Spiriva Respimat 2.5 mcg/actuation (tiotropium bromide) 2 puffs PO DAILY 30 days NS HPI Comments Details: Flores is here for a Dupixent teach she was educated on hand washing, injection preparation, administration, and disposal.? Flores was able to return demonstrate proper technique for hand washing, injection preparation, administration and disposal of needle and states she has no questions at this time. Medication Dupixent 300mg/2mL autoinjector (patient?s own meds) Loading dose of 600mg given by the patient in 2 SQ injections; injection #1 R thigh ;? injection #2 L thigh Lot# [id number] expires 08/31/2026. Patient aware her next injection is in 15 days. Nurse visit only.? [facility] Medical History (Updated 03/31/25 @ 21:07 by Ousmane Saucedo MD) Dyspnea Bronchitis Oral candidiasis Chronic rhinitis Palpitation Sinusitis Cough HOLLI (obstructive sleep apnea) Pectus excavatum Asthma GERD (gastroesophageal reflux disease) Family History Brother Lung cancer Social History Patient Tobacco Use Status: Former Tobacco user Tobacco use type: Cigarette Years Smoked: 40 years Physical Exam Vital Signs: BMI result Body Mass Index 23.7 Assessment & Plan Assessment & Plan (1) Asthma: Code(s): J45.909 - Unspecified asthma, uncomplicated Category: Medical Qualifiers: Asthma complication type: uncomplicated Asthma persistence: persistent Asthma severity: moderate Qualified Code(s): J45.40 - Moderate persistent asthma, uncomplicated Plan: start Dupixent Coding Level of Care Code Established Pt Est Pt Level 1 (10186) Patient Type Established Diagnoses Moderate persistent asthma without complication J45.40 Asthma complication type: uncomplicated Asthma persistence: persistent Asthma severity: moderate Comment NURSE VISIT ONLY
--- OUTSIDE RECORDS SUMMARY | 2025-05-11 13:06 | XMS_ITS | Data Portability ---
Author Organization [facility] [employer] Address [address] [place] [address] Care Team Providers Care Straddle Buggy Operator Name Role Phone MCCURDYISIDRO LEONARDREN Primary Care Provider TONY VALADEZ Assistant Director Of Public Works PAULA OSBORNE Mattress Finisher [phone] OSMAR WANG Neurologist Assessment Encounter Date Assessment [...] By Organization Details Last Modified Time 06/24/2023 [id number] osteoporosis: care instructions [email or web address] Not available 06/24/2023 15:46:24 Reason for Referral None Reported. Results Created Date Observation Date Name Description Value Unit Range Abnormal Flag Note LastModifiedBy Organization Detail LastModifiedTime 06/24/20 23 bone densi ty No observ ation record ed. [email or web address] Not Available 2022 10:37:52 Result Notes None recorded. Problems No Known Problems Procedures Surgical History Date Name Laterality Status Provider Name and Address Organization Details Recorded Time 3 completed Niesha Lino [facility] 06/24/2023 14:37:29 2 Most Recent Bone Density completed Niesha Huynh [facility] 06/24/2023 14:37:30 Abdominal Surgery completed Niesha Lino [facility] 06/24/2023 14:37:47 Organic Chemistry Professor Surgery completed Niesha Lino [facility] 06/24/2023 14:37:47 Heart Surgery completed Niesha Huynh [facility] 06/24/2023 14:37:47 Eye Surgery completed Niesha Lino [facility] 06/24/2023 14:37:47 Oral Surgery completed Niesha Huynh [facility] 06/24/2023 14:37:47 Plastic Surgery completed Niesha Lino [facility] 06/24/2023 14:37:47 Vascular Surgery completed Niesha Huynh [facility] 06/24/2023 14:37:47 Imaging Results None recorded. Procedure Notes None recorded. Medical Equipment None Reported. Allergies Allergen ID Allergen Name Allergen Category Reaction Reaction Severity Criticality Documentation Date Start Date Code Code System Note Provider Name and Address Organization Details Recorded Time 320363 iodine medicatio n rash Not available Not available 06/24/2023 5933 [facility] 14:37:01 707030 POLLEN EXTRACTS environme nt,medica tion itching respirato ry distress Not available Not available Not available 06/24/2023 30234 6 Rx[facility] 14:37:01 512999 house dust allergeni c extract environme nt,medica tion itching rash Not available Not available Not available 06/24/2023 93661 9 [facility] 14:37:01 601797 azithromy birgit medicatio n nausea Not available Not available 06/24/2023 12226 RxNorm Niesha Huynh dennis [facility] 3 14:37:01 600179 latex environme nt,medica tion itching respirato ry distress Not available Not available Not available 06/24/2023 35061 91 RxNorm Niesha collins [facility] 3 14:37:01 643822 mold extract environme nt rash respirato ry distress Not available Not available Not available 06/24/2023 77654 8 RxNorm Niesha Huynh dennis [facility] 3 14:37:01 187046 cigarette smoke environme nt respirato ry distress Not available Not available 06/24/2023 01302 UNK Niesha collins [facility] 14:37:01 Medications Name Sig Start Date Stop Date Status Note LastModified by Organization Details LastModified Time lido 5% nifed 0.2% oint APPLY A PEA SIZED AMOUNT TO ANAL AREA 3 TO 4 TIMES A DAY active Not Available Not Available No t Available diclofenac 3% / baclofen 2% / gabapentin 6% / bupivacaine hcl 1% Apply 1-3 grams to the affected area 3-4 times daily (NECK) 06/24 completed Not Available Not Available Not Available naltrexone 4.5mg capsules TAKE 1 CAPSULE [...] 2 SPRAYS INTRANASA LLY ONCE A DAY 06/22 completed Not Available Not [...] and Address Organization Details Last Updated DateTime 154.94 cm 23.5 kg/m2 77131.8 5 g 98 [degF] 100 % 100 % 83 /min 111 mm[Hg] 69 mm[Hg] Niesha Huynh [facility] 14:52:06 Social History Question Answer Notes LastModified by Organizat ion Details LastModified Time Tobacco Smoking Status Former Smoker Niesha collins [facility] 06/24/2023 14:37:42 Do You Have An Advance Directive? No [email or web address] Information not available 06/24/2023 Are You Blind Or Do You Have Difficulty Seeing? No [email or web address] Information not available 06/24/2023 Is Blood Transfusion Acceptable In An Emergency? Yes [email or web address] Information not available 06/24/2023 What Is Your Level Of Caffeine Consumption? Moderate [email or web address] Information not available 06/24/2023 Are You Deaf Or Do You Have Serious Difficulty Hearing? No [email or web address] Information not available 06/24/2023 What Type Of Diet Are You Following? REGULAR [email or web address] Information not available 06/24/2023 When Did You Quit Smoking? 16+yearssince lastcigarette [email or web address] Information not available 06/24/2023 Which Of Your Hands Is Dominant? Right [email or web address] Information not available 06/24/2023 What Was The Date Of Your Most Recent Tobacco Screening? 06/24/2023 [email or web address] Information not available 06/24/2023 Do You Have Any Pets? No [email or web address] Information not available 06/24/2023 What Is Your Relationship Status? [email or web address] Information not available 06/24/2023 How Many Years Have You Smoked Tobacco? 20 [email or web address] Information not available 06/24/2023 How Many Days In The Past Year Have You Consumed 4 Or More Drinks? 0 [email or web address] Information no t available 06/24/2023 Sex: Unknown Functional Status Question Answer Note LastModified by Organizat ion Details LastModified Time Do you use any illicit or recreational drugs? No [email or web address] Information not available 06/24/2023 Do you or have you ever used any other forms of tobacco or nicotine? No [email or web address] Information not available 06/24/2023 What is your level of alcohol consumption? Occasional [email or web address] Information not available 06/24/2023 Are you currently employed? No [email or web address] Information not available 06/24/2023 Are you able to care for yourself? Yes [email or web address] Information n ot available 06/24/2023 What is your exercise level? Occasional [email or web address] Information not available 06/24/2023 Mental Status Question Answer Note LastModified by Organization D etails LastModified Time Do you feel stressed (tense, restless, nervous, or anxious, or unable to sleep at night)? [id number] [email or web address] Information not available 06/24/2023 Family History Relationship Description Onset Age of this Age Resolved Age Notes LastModified by Organization Details LastModified Time Paternal Grandmother Disorder of musculoskele william system [email or web address] Not available 06/02 14:37:07 Mother Chronic obstructive pulmonary disease [email or web address] Not available 06/24 14:37:07 Mother Asthma [email or web address] Not available 06/24/2023 14:37:07 Mother Dementia [email or web address] Not availab le 06/24/2023 14:37:07 Mother Heart disease [email or web address] Not available 06/24 14:37:07 Maternal Grandmother Malignant tumor of breast [email or web address] Not available 06/24 14:37:07 Maternal Grandmother Heart disease [email or web address] Not available 06/24 14:37:07 Brother Disorder of adrenal gland [id number] Not available 06/24 14:37:07 Sister Asthma [email or web address] Not available 06/24/2023 14:37:07 Sister Malignant tumor of breast [email or web address] Not available 06/24 14:37:07 Sister Depressive disorder [email or web address] Not available 06/24 14:37:07 Sister Disorder of musculoskele william system [id number] Not available 06/02 14:37:07 Father Chronic obstructive pulmonary disease [id number] Not available 06/24 14:37:07 Medical History Condition Response Anxiety Y Osteopenia/Osteoporosis Y Back/Neck Pain Y Heart Rhythm Problem (Palpitations) Y Depression Y Spine Disease (Herniated Disc, Scoliosis , Stenosis) Y Asthma Y Gastrointestinal Disease (IBS, Gastritis , Ulcer, Acid Reflux) Y Neuropathy (Numbness, Pain, Tingling) Y Prior Blood Transfusion Y Other Disease(s): Y Headaches/Migraines Y Gynecological History Statement/Question Response 05/03/2023 Date [...] mcg/0.3 mL dose 12/30/2020 completed Niesha collins [facility] 06/24/2023 14:46:28 COVID-19, mRNA, LNP-S, PF, 30 mcg/0.3 mL dose 01/20/2021 [facility] 14:46:29 COVID-19, mRNA, LNP-S, PF, 30 mcg/0.3 mL dose 09/08/2021 [facility]23 14:46:29 COVID-19, mRNA, LNP-S, PF, 30 mcg/0.3 mL dose, goran-sucrose 05/19/2022 completed Niesha collins [facility] 06/24/2023 14:46:29 COVID-19, mRNA, LNP-S, bivalent, PF, 30 mcg/0.3 mL dose 10/11/2022 completed Niesha collins, [facility] 06/24/2023 14:46:29 Influenza, split virus, quadrivalent, PF 08/24/2022 completed Niesha collins, [facility] 06/24/2023 14:46:29 Influenza, split virus, quadrivalent, PF 09/18/2021 completed Niesha collins [facility] 06/24/2023 14:46:29 influenza nasal, unspecified formulation 01/12/2015 completed Niesha collins [facility] 06/24/2023 14:46:29 Past Encounters Encounter ID Performer Location Encounter Start Date Encounter Closed Date Diagnosis/Indication Diagnosis SNOMED-CT Code Diagnosis ICD10 Code Diagnosis Note [id number] Tony Valadez MD [facility] [address] [address] 06/24/2023 14:35:06 06/24/2023 15:49:20 Osteoporosis [id number] M81.0 Long discussion regarding her degree of [...] spent 45 mins face-to-fa ce with patient dixie solomon, counseling , discussing about diagnostic workup and [...] ID Guarantor Name 06/24/2023 1 [place] [employer] Flores Oneil [id number] Flores Oneil 06/24/2023 2 [place] [facility] Flores Daniel Oneil [id number] Flores Oneil Notes Date Note Type Note Provider Name and Address Organization Details Recorded Time 06/24/2023 text/html 62year-old femal e with PMH of aortic arch diverticulum s/p repair, 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 She was diagnosed with osteoporosis in 2021 and was ordered to get Prolia. However, then saw library assistant, who recommended Forteo- w/up for secondary causes [...] sister with osteopeniaLow Body Weight: NoFall Risk: intermediate- did not fall recently, exercising for balanceDrugs that can worsen bone loss:Steroids: Yes- prednisone 2 bursts several years, NoAnti-epileptic medications (phenobardital/pheny toin): NoImmunosuppresants: NoCancer chemotherapy: NoAromatase inhibitors: {Yes No} Use of OCP/HRT/GnRH agonists or antagonist: OCPs for several years Menarche: 14 yearsMenopause: 52 yearsMenstrual problems during reproductive age: nonePregnancies: 1 Stones/Hypercalcemia Sx: noneDouble Jointedness:Exercise : no wt bearingSurgeries: endometriosisSmoking : yes- x 20 years, quit 20 yearsAlcohol Use: moderate use 04/03/2023: Creat 0.8/GFR 87, calcium 9.4, albumin 4.9, vitamin D36.2, CTX 156,12/05/2022: creat 0.8/GFR 88, sparkle 9.3, alb 4.9, alk phos 49, TSH 2.61, PTH 40/Sparkle 9.5, phos 4.3, vit D 32.724 hr urine calcium 280mg Tony Valadez MD [address] [place] [address], [phone], [facility] 06/24/2023 22:52:43 OBGyn Episode No OBEpisode recorded.
== END 2025-05-11 11:41 | disposition home or self-care (01) ==
LOC: HO.HPS 11:00
PROVIDERS: PCP Internal Medicine; Visit Provider Hospitalist
DX: J45.40 Moderate persistent asthma, uncomplicated (principal)

== ENCOUNTER → 2025-05-11 10:59 | Outpatient (BNVA) | payer MEDICARE, OTHER, SELFPAY | PROVIDERS: PCP Internal Medicine; Visit Provider Hospitalist | DX: J45.40 Moderate persistent asthma, uncomplicated (principal) | CPT/HCPCS: 99211 ==

== ENCOUNTER 2025-11-01 14:01 | Outpatient (AMB) | payer MEDICARE, OTHER, SELFPAY ==
[2025-11-01 14:09] VITALS: BP 110/60; PULSE 84; O2SAT 100; BMI 23.5
--- NOTE | 2025-11-01 14:09 | A.OFFVIS_ITS ---
Vital Signs 11/01/25 14:09 Height 5 ft 1 in Weight 124 lb 8.979 oz BMI 23.5 BP 110/60 Blood Pressure Location Lt brachial Position Sitting Pulse 84 Pulse Source Pulse Oximeter Pulse Oximetry (%) 100 Oxygen Delivery Method Room Air Intake Visit Reasons: Asthma Buildings And Grounds Coordinator Required: No Accompanied by: Self / Same As Patient Allergies azithromycin Allergy (Severe, Verified 11/01/25 14:13) Palpitations ciprofloxacin (From CIPRO) Allergy (Severe, Verified 11/01/25 14:13) Palpitations abaloparatide (From Tymlos) Allergy (Intermediate, Verified 11/01/25 14:15) Swelling doxycycline Allergy (Intermediate, Verified 11/01/25 14:15) Rash Iodinated Contrast Media (IODINATED CONTRAST MEDIA) Allergy (Unknown, Verified 11/01/25 14:13) RASH levofloxacin (From LEVAQUIN) Allergy (Unknown, Verified 11/01/25 14:13) DIFFICULTY BREATHING moxifloxacin (From AVELOX) Allergy (Unknown, Verified 11/01/25 14:13) DIARRHEA venlafaxine (From EFFEXOR) Allergy (Unknown, Verified 11/01/25 14:13) SWELLING amoxicillin (From Augmentin) Adverse Reaction (Severe, Verified 11/01/25 14:13) Diarrhea clavulanic acid (From Augmentin) Adverse Reaction (Severe, Verified 11/01/25 14:13) Diarrhea HPI Comments Details: The patient is a 65 year-old woman with 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 Currently, the patient has been evaluated also for lower extremity neuropathy. She is scheduled to undergo a biopsy in the coming days. In the meantime she continues to have significant shortness of breath. Moderate to severe at times. Usually worse when she takes a deep breath in. She has been using her inhalers and date to help some. In the office with did to a flow volume loop, spirometry. No evidence of any obstructive ventilatory defects. However she did have some fluttering of the flows during the inspiratory component suggesting the possibility of vocal cord dysfunction. She has had evidence of vocal cord dysfunction on previous bronchoscopy. She is also not using her CPAP because she is concerned every infections her sinuses. She is complaining of some sinus pressure and is also complaining of some chest pressure along with wheezing and cough. We did review her blood work that she had recently demonstrating again a low IgA level, 44. At this time in due to her recurrent infections in the sinuses in the respiratory tract is not on reasonable for her to be seen by immunology. I will arrange that. In the meantime she is going to continue her respiratory therapy. She is going to start budesonide for couple weeks to see if there is improvement. She continues using her nasal sprays. In regards of her asthma appears to be better controlled on the Alvesco 2 puffs twice a day. She continue using this for now. She needs a refill. We did review her x-rays that she had recently in the hospital. Initially she went and was tested for COVID-19 which came back negative. However the x-ray demonstrated a slight nodular opacity in her right mid lung. She does have a history of cancer in the family so she is became very concerned. We did look at previous CT scans that she has had back in 2018 at [facility] [place], but, she did not have any findings therapy. Therefore request of CT scan of the chest was address the abnormal finding on the x-ray. To note the final read in the x-ray did not mention the opacity that was present. She did undergo a CT chest to assess her abnornal CXR with demonstrated minimal apical scarring. Does have mediastinal LN which appear to be stable for couple years. No evidence of any nodules. Does have some post operative changes. 07/22/2023 the patient is here for sick visit. Apparently for the last few days she has been complaining of sinus congestion and headache. She has complained of a postnasal drip and some hoarseness. Ultimately she started developing worsening cough now with some chest tightness and heaviness. [id number] severity. Denies any fevers or chills although she feels fatigued. We did swab her for flu, COVID and RSV. It did come back negative. No significant wheezing on examination. The patient also to note was diagnosed with osteoporosis. Therefore, we have to very careful with any steroid therapy. Will start the patient on doxycycline and also will start her on budesonide nebs to see if that can help decrease the chest tightness without the need of prednisone. 11/04/2023 the patient is here for a pulmonary follow-up visit. Seems to be having worsening symptoms with her obstructive airway disease. She was recently evaluated by 1 of my colleagues for an asthma exacerbation. She was treated with prednisone and antibiotics. The patient has been responding fairly to the current respiratory regimen. Although sometimes the Xopenex as and help her. I did advise that she can always use additional the puffs if needed. The patient has not had pulmonary function studies and sometimes therefore will request a repeat study at this time. The patient has been getting allergy shots now for some time. Will go ahead and request a repeat blood work including a CBC with differential to assess her eosinophils and also an IgE count to see if she will benefit from biologic therapy. The patient may be a good candidate for either Dupixent or Xolair for underlying respiratory symptoms. Specially since she is not responding fully to the maximum respiratory therapy provided. The patient has a hard time tolerating long-acting beta agonist so therefore we need to avoid dose medications. She also had an allergic reaction to the doxycycline. She also has allergies to multiple other antibiotics. She does have an lexus rgist and she needs to discuss possibly undergoing a antibiotic challenge to see when she is really allergic to or in or adverse reactions to. Therefore, the patient will undergo blood work continue with current respiratory therapy in her PFTs and will return for follow-up visit. Will discuss additional management such as with biologics that time. 09/27/2024 the patient is here for pulmonary follow-up visit. She continues to have chest pressure and chest discomfort along with shortness a breath. She has been on her respiratory medication Alvesco and also Spiriva without significant improvement. The patient also has been followed closely by allergy immunology. She did undergo blood work the last time her IgE level was low and also eosinophils absolute count was only 200. therefore biologic therapies really not great option for her. In addition to that she did undergo a chest x-ray which I personally reviewed demonstrating no acute disease and she also underwent pulmonary function studies that were reviewed. As far as the numbers look completely normal. However, the flow volume loop appears to have some plateauing of the expiratory limb suggesting some degree intrathoracic dynamic obstruction. She does have a history of open heart surgery for her congenital heart disease and also has significant pectus excavatum. Many years ago we did perform a bronchoscopy. I remember some tortuosity of the trachea. At this point though I do believe getting a CT scan to better address her tracheal anatomy with a dynamic exhalation CT scan to assess any potential extrinsic or intrinsic collapsibility of the trachea to explain the abnormal PFTs in the ongoing chest pain. In the meantime I do have a sample of a long-acting muscarinic antagonist that she can use via the nebulizer and she is going to hold Spiriva for now. She will continue the Alvesco as is the only 1 that does not cause her to have significant thrush. She does have a history of palpitations and tachyarrhythmias so therefore will hold off on the use of a long-acting beta agonist or even a short-acting beta agonist if we can avoided to minimize her cardiac issues the patient is following up closely with allergy immunology. Also I am sure to send this message at some point we will communicate to make sure that we are discussing the patient in detail. 03/31/2025 the patient is here for pulmonary follow-up visit. She continues have significant allergy symptoms affecting her significant chronic rhinitis and also affecting her breathing. She continues use respiratory therapy as prescribed. She can not tolerate long-acting beta agonist because of tremulousness and palpitations in her cardiac history. Therefore she continues on the inhaled cortical steroids and long-acting muscarinic antagonist. This only provides her partial response to therapy. She continues to get allergy shots through Allergy and immunology. But she continues to be symptomatic. Specially in the springtime now and also in the fall. She is already optimized with her nasal therapy. based on significant allergic asthma and allergic chronic rhinitis patient will be a good candidate for biologic therapy. Will go ahead and request additional blood work at this time to measure her IgE and also eosinophil count. I do believe Dupixent or Fasenra will be very good options for her. Will decide based on the laboratory data. 11/01/2025 the patient is here for pulmonary follow-up visit. Since the patient started on the Dupixent her breathing has been better. Denies any significant chest tightness and wheezing. So therefore she is going to continue with the Dupixent at this time. What she has not seen a significant improvement in her nasal congestion. She has significant postnasal drip at times very thick drainage from her sinuses. She does have a deviated septum. She did see ENT but then was sent to see a oncologist because of a cervical lymph node. Likely reactive. She did have a biopsy done. Although she never really followed up with ENT regarding her deviated septum and significant chronic sinusitis. After visualized in the drainage I did recommend going on a course of doxycycline but the patient prefers not to go on any antibiotics at this time because of adverse reactions. In addition to that she did have some ulcerations to the nasal passages specially in the right nostril. I will send her some Bactroban for that. She is going to go back to ENT to further evaluate her chronic sinusitis. I do believe that the Dupixent will help but will take longer. She can also use Sudafed to help her with the nasal congestion to try help her drainage. She continues with the nasal rinsing. Unfortunately she can not use any fluticasone or corticosteroids because she has had significant epistaxis even after just a few days of use. Likely from the ulcerations that I could appreciate on my exam. Hopefully does get better after the Bactroban. [facility] Medical History (Updated 03/31/25 @ 21:07 by Ousmane Saucedo MD) Dyspnea Bronchitis Oral candidiasis Chronic rhinitis Palpitation Sinusitis Cough HOLLI (obstructive sleep apnea) Pectus excavatum Asthma GERD (gastroesophageal reflux disease) Family History Brother Lung cancer Social History Patient Tobacco Use Status: Former Tobacco user Tobacco use type: Cigarette Years Smoked: 40 years Review of Systems Const Reports fatigue, Denies fever(s) and Denies night sweats ENT Reports Normal hearing present, Denies change in voice, Denies lip swelling, Reports epistaxis, Reports mouth pain, Reports nasal congestion, Reports nasal discharge, Reports odynophagia, Reports sinus pain, Reports sinus pressure, Reports sore throat and Denies tongue swelling Card Reports chest pain and Denies dyspnea Resp Denies change in phlegm color, Denies chest congestion, Reports cough, Denies dyspnea and Denies wheezing GI Reports abdominal pain, Denies diarrhea, Reports nausea, Reports odynophagia and Denies hematemesis Musc Denies no additional complaints Neuro Reports Normal hearing present and Denies Neuro-related abnormal movements Psych Denies no additional complaints Endo Reports fatigue Ricardo/Lymph Denies easy bleeding and Denies lymphadenopathy Aller/Immun Denies lip swelling, Denies tongue swelling and Denies wheezing Physical Exam Vital Signs: Last Vital Signs Pulse 84 11/01/25 14:09 BP 110/60 11/01/25 14:09 Pulse Ox 100 11/01/25 14:09 Oxygen Delivery Method Room Air 11/01/25 14:09 BMI result Body Mass Index 23.5 Const General: cooperative, no acute distress, well developed and alert Orientation/consciousness: patient oriented x3 Limitations: no limitations HEENT Head: Yes normal to inspection, Yes normocephalic and Yes atraumatic General nose exam: Abnormal mucous membranes and turbinates present and Nasal discharge present Eyes General: appearance normal, both eyes and all related structures Eyelids: Yes eyelids normal Sclerae: sclerae normal EOM: EOMs intact bilaterally Neck Neck: Yes normal visual inspection and Yes no lymphadenopathy Lymphatic: no lymphadenopathy noted Chest Chest palpation & inspection: normal inspection of the chest Resp Other: poor air movement bilaterally with expiratory wheezes, improved after nebulizer. Effort & Inspection: normal respiratory effort, able to speak in complete sentences and No prolonged expiratory phase Auscultation: clear to auscultation bilaterally, no rales, no rhonchi and no wheezes Cardio Jugular venous distension: no JVD Rate: regular rate Rhythm: regular rhythm Skin Other: warm, dry General skin exam: no rashes or lesions noted Neuro General: patient oriented x3 Cranial nerves: Yes Normal hearing present Cognition (Neuro): normal cognition Gait exam (Neuro): Normal gait present Extrem General: Yes normal to inspection, Yes capillary refill normal, Yes no clubbing, cyanosis or edema and Yes no pedal edema Psych Appearance: grossly normal and well kempt Speech and movement: Normal speech and movement present and Clear speech present Affect: normal affect Attitude: cooperative Thought process: Normal thought process present Thought content: Normal thought content present Insight: Good insight present (Psych) Judgement: Good judgement present (Psych) Assessment & Plan Assessment & Plan (1) Asthma: Code(s): J45.909 - Unspecified asthma, uncomplicated Category: Medical Qualifiers: Asthma complication type: uncomplicated Asthma persistence: persistent Asthma severity: moderate Qualified Code(s): J45.40 - Moderate persistent asthma, uncomplicated (2) Cough: Code(s): R05 - Cough Category: Medical Qualifiers: Cough type: chronic Qualified Code(s): R05.3 - Chronic cough (3) Chronic rhinitis: Code(s): J31.0 - Chronic rhinitis Category: Medical (4) HOLLI (obstructive sleep apnea): Code(s): G47.33 - Obstructive sleep apnea (adult) (pediatric) Category: Medical (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 impaired she does carry diagnosis of asthma and also significant allergies current getting allergy shots. However, she also has a history of congenital heart disease status post cardiac surgery and mediastinal changes along with this spectrum excavatum that likely contributing to some degree of her dyspnea symptoms. Code(s): R06.00 - Dyspnea, unspecified Category: Medical Qualifiers: Dyspnea type: dyspnea on exertion Qualified Code(s): R06.09 - Other forms of dyspnea Plan REC Spiriva continue Alvesco ASHUTOSH as needed No LABA due cardiac issues continue Dupixent. 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
--- OUTSIDE RECORDS SUMMARY | 2025-11-01 17:28 | XMS_ITS | Encounter Summary ---
Author Organization [facility] Address [address] [place] [id number] Care Team Providers Care Corporate Buyer Name Role Phone Unavailable Primary Care Provider Unavailabl e Encounter Details Date Type Department Care Team (Late st Contact Info) Description 11/20/2002 Scanned Document Cardiac Surgery [address] [place] [id number] Cortez Diggs MD [address] [place] [address] [place] [id number] Social History Tobacco Use Types Packs/Day Years [...]
--- OUTSIDE RECORDS SUMMARY | 2025-11-01 17:28 | XMS_ITS | Encounter Summary ---
Author Organization [facility] Address [address] [place] [phone] Care Team Providers Care Education Program Manager Name Role Phone Unavailable Primary Care Provider Unavailabl e Encounter Details Date Type Department Care Team (Late st Contact Info) Description 10/14/2020 Scanned Document Cardiac Surgery at [address] [facility] 2nd [place] [address] Provider, Historical . Social History Tobacco Use [...]
--- OUTSIDE RECORDS SUMMARY | 2025-11-01 17:28 | XMS_ITS | Clinical Summary ---
Author Organization [employer] Address [address] [facility] [address] [place] [address] Care Team Providers Care Cruller Maker Machine Name Role Phone Unavailable Primary Care Provider [...] 2 times daily. 03/28/2018 Active Sodium Fluoride 5000 PPM 1.1 % gel DISPENSE PEA SIZED AMOUNT BRUSH TEETH, SPIT BUT DON'T RINSE AFTER. 100 g 07/28/2025 Active Dupixent 300 MG/2ML solution auto-injector 08/03/2025 Activ e Active Problems Problem Noted Date Diagnosed Date Anxiety 04/06/2025 Asthma 12/18/2014 Overview (04/06/2025): Asthma: unspecified; Note: Date Diagnosed: 12/18/2014 11:33 AM (493.90) Encounters Date Type Department Care Team Description 08/26/2025 11:00 AM EDT Office Visit [facility] ADULT DENTAL [address] [place] [address] Marly Stark 08/26/2025 Telephone [facility] ADULT DENTAL [address] [place] [address] Marly Stark 08/19/2025 Travel from Last 3 Months Social History [...] Sign Reading Time Taken Comments Blood Pressure 108/70 08/26/2025 11:11 AM EDT Pulse 74 04/06/2025 1:52 PM EDT Temperature - - Respiratory Rate - - Oxygen Saturation - - Inhaled Oxygen Concentration - - Weight - - Height - - Body Mass Index - - Plan of Treatment Upcoming Encounters Date Type Department Care Team (Late st Contact Info) Description 03/10/2026 12:45 PM EDT Office Visit [facility] ADULT DENTAL [address] [place] [address] Jazlyn Reddy Health Maintenance Due Date Last Done Comments CT Colonography 1959 Colonoscopy 1959 Colorectal Cancer Screening 1959 Depression Screening 1959 FIT DNA/Cologuard 1959 FIT 1959 FOBT 1959 SDOH Screening 1959 Sigmoidoscopy 1959 Alcohol/Substance Use Screening 1971 Hepatitis C Screening 1977 Pneumococcal Vaccine: 50+ Years (1 of 2 - PCV) 1978 Mammogram 1999 RSV Patients and Patients Aged 60 years or older (1 - Risk 50-74 years 1-dose series) 2009 Zoster Vaccines (1 of 2) 2009 Dental X-Ray: Full Mouth 04/13/2025 04/12/2022, 01/30 COVID-19 Vaccine ( season) 2025 11/04/2024, 10/11/2022, 05/19/2022, Additional history exists Dental X-Ray: Bitewings 02/19/2026 02/19/20, 04/12/2022, 04/15/2019, Additional history exists Dental Oral Exam 02/24/2026 08/26/2025, 11/2022, 10/26/2019, Additional history exists Dental Prophylaxis 02/24/2026 08/26/2025, 0 02/18/2025, 04/12/2022, Additional history exists Tobacco Screening 08/26/2026 08/26/2025 DTaP/Tdap/Td Vaccines (2 - Td or Tdap) 01/30/2034 01/31/2024 Hepatitis A Vaccines Aged Out 01/13/2007, 02/06/20 06 No longer eligible based on patient's age to complete this topic Influenza Vaccine Completed 09/05/2025, , 09/15/2023, Additional history exists HIB Vaccines Aged Out [...] Procedure Name Priority Date/Time Associated Diagnosis Comments COMPREHENSIVE PERIODONTAL EVALUATION - NEW OR ESTABLISHED PATIENT Routine 08/26/2025 11:00 AM EDT PERIODIC ORAL EVALUATION - ESTABLISHED PATIENT Routine 08/26/2025 11:00 AM EDT PROPHYLAXIS - ADULT Routine 08/26/2025 1 1:00 AM EDT 17 EXTRACTION Routine 08/26/2025 12:00 AM EDT BITEWINGS - 4 RADIOGRAPHIC IMAGES Routine 02/18/2025 10:00 AM EDT INTRAORAL - COMPLETE SERIES OF RADIOGRAPHIC IMAGES Routine 04/12/2022 12:00 AM EDT from Last 3 Months or Most Recently Relevant to Health Maintenance Insurance [facility]
--- OUTSIDE RECORDS SUMMARY | 2025-11-01 17:28 | XMS_ITS | Encounter Summary ---
Author Organization [employer] Address [address] [facility] [address] [place] [address] Care Team Providers Care Quality Assurance Monitor Final Name Role Phone Unavailable Primary Care Provider Unavailabl e Encounter Details Date Type Department Care Team (Latest Contact Info) Description 04/15/2019 Abstract [facility] CONVERSIONS Dental, Provider, DDS Social [...] Description 03/10/2026 12:45 PM EDT Office Visit [facility] ADULT DENTAL [address] [place] [address] Jazlyn Reddy documented as of this encounter Visit Diagnoses Not on filedocumented in this encounter
--- OUTSIDE RECORDS SUMMARY | 2025-11-01 17:28 | XMS_ITS | Clinical Summary ---
Author Organization [facility] Address [address] [place] [phone] Care Team Providers Care Cad Manager Name Role Phone Unavailable Primary Care [...] Shingrix (RZV) 2 Dose Standard Series) 2009 Osteoporosis screening (bone density) 2024 Influenza vaccine 07/02/2025 Covid-19 vaccine series (1 - 2024- season) 2025 RSV Immunization (1 - 1-dose 75+ series) 2034 Cervical cancer screening Discontinued Meningococcal B Vaccine Aged Out No l onger eligible based on patient's age to complete this topic Meningococcal Vaccine Aged Out No dorian meaghan eligible based on patient's age to complete this topic
--- OUTSIDE RECORDS SUMMARY | 2025-11-01 17:28 | XMS_ITS | Encounter Summary ---
Author Organization [employer] Address [address] [facility] [address] [place] [address] Care Team Providers Care Gas Pumper Name Role Phone Unavailable Primary Care Provider Unavailabl e Encounter Details Date Type Department Care Team (Latest Contact Info) Description 04/12/2022 Abstract [facility] CONVERSIONS Dental, Provider, DDS Social [...] Description 03/10/2026 12:45 PM EDT Office Visit [facility] ADULT DENT[facility] [address] [place] [address] Jazlyn Reddy documented as of this encounter Visit Diagnoses Not on filedocumented in this encounter
--- OUTSIDE RECORDS SUMMARY | 2025-11-01 17:28 | XMS_ITS | Data Portability ---
Author Organization [facility] [employer], svmg_admin Address [address] [place] [phone] Care Team Providers Care Ross Carrier Driver Name Role Phone MCCURDYISIDRO LEONARDREN Primary Care Provider TONY VALADEZ [employer] PAULA OSBORNE Program Consultant OSMAR WANG Neurologist Assessment Encounter Date Assessment [...] By Organization Details Last Modified Time 06/24/2023 [id number] osteoporosis: care instructions [email or web address] Not available 06/24/2023 15:46:24 Reason for Referral None Reported. Results Created Date Observation Date Name Description Value Unit Range Abnormal Flag Note LastModifiedBy Organization Detail LastModifiedTime 06/24/20 23 bone densi ty No observ ation record ed. Not Available 2022 10:37:52 Result Notes None recorded. Problems No Known Problems Procedures Surgical History Date Name Laterality Status Provider Name and Address Organization Details Recorded Time 3 completed Niesha Huynh [facility] 06/24/2023 14:37:29 2 Most Recent Bone Density completed Niesha Huynh [facility] 06/24/2023 14:37:30 Abdominal Surgery completed Niesha Lino [facility] 06/24/2023 14:37:47 Hardware Technician Surgery completed Niesha Huynh [facility] 06/24/2023 14:37:47 Heart Surgery completed Niesha Lino [facility] 06/24/2023 14:37:47 Eye Surgery completed Niesha Lino [facility] 06/24/2023 14:37:47 Oral Surgery completed Niesha Huynh [facility] 06/24/2023 14:37:47 Plastic Surgery completed Niesha Lino [facility]. 06/24/2023 14:37:47 Vascular Surgery completed Niesha Huynh [facility] 06/24/2023 14:37:47 Imaging Results None recorded. Procedure Notes None recorded. Medical Equipment None Reported. Allergies Allergen ID Allergen Name Allergen Category Reaction Reaction Severity Criticality Documentation Date Start Date Code Code System Note Provider Name and Address Organization Details Recorded Time 770888 iodine medicatio n rash Not available Not available 06/24/2023 5933 Rx[facility] 14:37:01 500867 POLLEN EXTRACTS environme nt,medica tion itching respirato ry distress Not available Not available Not available 06/24/2023 71111 6 RxNorm [facility] 14:37:01 700091 house dust allergeni c extract environme nt,medica tion itching rash Not available Not available Not available 06/24/2023 83417 9 RxNorm [facility] 14:37:01 375386 azithromy birgit medicatio n nausea Not available Not available 06/24/2023 19240 RxNorm Niesha Huynh dennis [facility] 3 14:37:01 781556 latex environme nt,medica tion itching respirato ry distress Not available Not available Not available 06/24/2023 04361 91 RxNorm Niesha Huynh dennis [facility] 3 14:37:01 689190 mold extract environme nt rash respirato ry distress Not available Not available Not available 06/24/2023 84980 8 RxNorm Niesha Huynh dennis [facility] 3 14:37:01 242284 cigarette smoke environme nt respirato ry distress Not available Not available 06/24/2023 Niesha Huynh dennis [facility] 3 14:37:01 Medications Name Sig Start Date Stop [...] Not Available Not Available Not Available cholecalcif aliisa (vitamin D3) 50 mcg (2,000 unit) tablet [...] (BMI) Body weight Body temperature Oxygen saturation Heart rate Systolic And Diastolic Provider Name and Address Organization Details Last Updated DateTime 3 0 154.94 cm 23.5 kg/m2 13322.8 5 g 98 [degF] 100 % 83 /min 111/69 mm[Hg] Niesha Huynh [facility] 14:52:06 Social History Question Answer Notes LastModified by Organizat ion Details LastModified Time Tobacco Smoking Status Former Smoker Niesha collins [facility] 06/24/2023 14:37:42 Do You Have An Advance Directive? No [email or web address] Information not available 06/24/2023 Are You Blind Or Do You Have Difficulty Seeing? No [email or web address] Information not available 06/24/2023 Is Blood Transfusion Acceptable In An Emergency? Yes [email or web address] Information not available 06/24/2023 What Is Your Level Of Caffeine Consumption? Moderate [email or web address] Information not available 06/24/2023 Are You Deaf Or Do You Have Serious Difficulty Hearing? No [email or web address] Information not available 06/24/2023 What Type Of Diet Are You Following? REGULAR [email or web address] Information not available 06/24/2023 When Did You Quit Smoking? 16+yearssince lastcigarette [email or web address] Information not available 06/24/2023 Which Of Your Hands Is Dominant? Right [email or web address] Information not available 06/24/2023 What Was The Date Of Your Most Recent Tobacco Screening? 06/24/2023 [email or web address] Information not available 06/24/2023 Do You Have Any Pets? No [email or web address] Information not available 06/24/2023 What Is Your Relationship Status? [email or web address] Information not available 06/24/2023 How Many Years Have You Smoked Tobacco? 20 [email or web address] Information not available 06/24/2023 How Many Days In The Past Year Have You Consumed 4 Or More Drinks? 0 [email or web address] Information no t available 06/24/2023 Sex: Unknown Functional Status Question Answer Note LastModified by Organizat ion Details LastModified Time Do you use any illicit or recreational drugs? No [email or web address] Information not available 06/24/2023 Do you or have you ever used any other forms of tobacco or nicotine? No [email or web address] Information not available 06/24/2023 What is your level of alcohol consumption? Occasional [email or web address] Information not available 06/24/2023 Are you currently employed? No [email or web address] Information not available 06/24/2023 Are you able to care for yourself independently? Yes [email or web address] Information not available 06/24/2023 What is your exercise level? Occasional [email or web address] Information not available 06/24/2023 Mental Status Question Answer Note LastModified by Organization D etails LastModified Time Do you feel stressed (tense, restless, nervous, or anxious, or unable to sleep at night)? [id number] [email or web address] Information not available 06/24/2023 Family History Relationship Description Onset Age of this Age Resolved Age Notes LastModified by Organization Details LastModified Time Paternal Grandmother Disorder of musculoskele william system [email or web address] Not available 06/02 14:37:07 Mother Chronic obstructive pulmonary disease [id number] Not available 06/24 14:37:07 Mother Asthma [id number] Not available 06/24/2023 14:37:07 Mother Dementia [email or web address] Not availab le 06/24/2023 14:37:07 Mother Heart disease [id number] Not available 06/24 14:37:07 Maternal Grandmother Malignant neoplasm of breast [id number] Not available 06/24 14:37:07 Maternal Grandmother Heart disease [id number] Not available 06/24 14:37:07 Brother Disorder of adrenal gland [id number] Not available 06/24 14:37:07 Sister Asthma [id number] Not available 06/24/2023 14:37:07 Sister Malignant neoplasm of breast [id number] Not available 06/24 14:37:07 Sister Depressive disorder [id number] Not available 06/24 14:37:07 Sister Disorder of musculoskele william system [email or web address] Not available 06/02 14:37:07 Father Chronic obstructive pulmonary disease [email or web address] Not available 06/24 14:37:07 Medical History Condition [...] LNP-S, PF, 30 mcg/0.3 mL dose 12/30/2020 ene collins [facility] 06/24/2023 14:46:28 COVID-19, mRNA, LNP-S, PF, 30 mcg/0.3 mL dose 01/20/2021 [facility] 14:46:29 COVID-19, mRNA, LNP-S, PF, 30 mcg/0.3 mL dose 09/08/2021 [facility] 06/24/2023 14:46:29 COVID-19, mRNA, LNP-S, PF, 30 mcg/0.3 mL dose, goran-sucrose 05/19/2022 completed Niesha collins [facility] 06/24/2023 14:46:29 COVID-19, mRNA, LNP-S, bivalent, PF, 30 mcg/0.3 mL dose 10/11/2022 completed Niesha collins [facility] 06/24/2023 14:46:29 Influenza, split virus, quadrivalent, PF 08/24/2022 completed Niesha collins [facility] 06/24/2023 14:46:29 Influenza, split virus, quadrivalent, PF 09/18/2021 completed Niesha collins [facility] 06/24/2023 14:46:29 influenza nasal, unspecified formulation 01/12/2015 completed Niesha collins [facility] 06/24/2023 14:46:29 Past Encounters Encounter ID Performer Location Encounter Start Date Encounter Closed Date Diagnosis/Indication Diagnosis SNOMED-CT Code Diagnosis ICD10 Code Diagnosis IMO Codes Diagnosis Note [id number] Tony Valadez MD [facility] [address] [facility],[address] [phone] 06/24/2023 14:35:06 06/24/2023 15:49:20 Osteoporosis 90449464 M81.0 Long discussion regarding her degree of [...] None Recorded Advance Directives Directive N: Payers Insurance Date Sequence Insurance Name Policy Number Policy Christiansen Covered Member ID Christiansen Member ID Guarantor Name 06/13/2023 3 [facility] SMS Assist [facility] (PPO) Flores Oneil [id number] Flores Oneil 07/27/2023 3 [facility] (MEDICARE SUPPLEMENT) Flores Oneil [id number] Flores Oneil 06/13/2023 2 [facility] (HMO) [id number] Flores Oneil [id number] Flores Oneil 07/29/2023 2 [place] [facility] Flores Oneil [id number] Flores Oneil 06/21/2023 1 [place] [employer] Flores Oneil [id number] Flores Oneil Notes Date Note Type Note Provider Name and Address Organization Details Recorded Time 06/24/2023 text/html ROS as noted in the HPI 62year-old female with PMH of aortic arch diverticulum s/p repair, 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 She was diagnosed with osteoporosis in 2021 and was ordered to get Prolia. However, then saw production operator, who recommended Forteo- w/up for secondary causes was neg presumably.Had back injury after falling in pothole, currently get steroid shots in back. H/o breast cancer: NoBone History is notable for the following:Height: 5ft 2in adult height- lost 1 inchPrevious fractures: No BMD T scores; Date: BMD 11/2022 on different machine: L1-L4 BMD 0.703 g/cm , T score -3.1, Z score -1.5Femoral neck BMD 0.538 g/cm , T score -2.8, Z score -1.4Total hip BMD 0.687 g/cm , T score -2.1, Z score -1.0 Past [...] hr urine calcium 280mg Tony Valadez MD [address] [place] [address], [phone], [facility]. 06/24/2023 22:52:43 OBGyn Episode No OBEpisode recorded.
--- OUTSIDE RECORDS SUMMARY | 2025-11-01 17:28 | XMS_ITS | Data Portability ---
Author Organization [place] - [facility], Allergy Address [address] [address] Care Team Providers Care Application Support Administrator Name Role Phone MAURA MCCURDY Primary Care Provider Assessment Encounter Date Assessment Date Assessment LastModified by Organization Details LastModified Time 05/04/2024 05/04/2024 Recommendations: Follow up with referring provider. Amplification, Au, pending medical clearance. [email or web address] Not available 05/04/2024 14:56:47 05/04/2024 05/04/2024 Today we discuss ed the pathophysiology of tinnitus and the absence of consistently successful pharmacologic treatments for tinnitus. We discussed masking strategies to decrease awareness of the tinnitus, including using a white noise machine, music, or television.We discussed how exposure to loud noise can [...] nasal valve repair. Therefore offered referral to [place] for her to see a functional plastic surgeon who may be able to complete the work and offer a description of their experience of a series of patients outcomes. She seems to have some anxiety about her healing process and postnasal drip [email or web address] Not available 06/10/2024 16:15:09 05/03/2025 05/03/2025 64yo female with bilateral amplification on allergic rhinitis on SCIT presents for evaluation of otorrhea. She reports pollo a sinus infection 3-4 weeks ago, and nasal symptoms since significantly improved with Augmentin and Prednisone. TMs are normal to inspection. External auditory canals are without obstruction or purulence. We discussed that aural fullness and eustachian tube dysfunction can persist up to 2-3 months after acute upper respiratory infection. Recommend patient continue intranasal Sensimist as tolerated. She plans to start Dupixent, which is prescribed by her regional climate change analyst for asthma and allergic rhinitis. Recommend she restart wearing her hearing aids, as they will help reduce awareness of the tinnitus. She will return for updated audiometric testing at her convenience. Patient would also like to return for evaluation of her throat/ base of tongue. [email or web address] Not available 05/03/2025 17:32:35 08/05/2025 08/05/2025 Assessment: - Asymmetric T2 hyperintense focus with enhancement in the right tongue base and right vallecula. - Stable lymph nodes. Plan: The patient underwent a fiberoptic laryngoscopy, which demonstrated normal findings without evidence of lesions, growths, or abnormalities. Based on the imaging results and today's examination, there is no indication of a dangerous or concerning lesion. The findings on imaging are likely benign, potentially representing mucus or a small cyst that has since resolved. The patient was reassured regarding the normal examination findings and the stability of the lymph nodes. No further intervention is required at this time unless new symptoms develop or imaging demonstrates changes in the future. The patient was advised to monitor for any new symptoms and to follow up if concerns arise. [email or web address] Not available 08/05/2025 14:42:37 Plan of Treatment Reminders Order Date Submit Date Provider Last Modified By Organization Details Last Modified Time Details Appointments Establish ed 15 2024 11:15A M ZACHARY CHEN Not available Not available Not available Lab None recorded. Referral rhinology referral - Appt 07/24 @ 10:10am 2023 024 [email or web address] [facility], [address], [place], [address], 07/13/2024 16:47:19 Procedures None recorded. Surgeries None recorded. Imaging None recorded. Medication Orders None recorded. Patient TargetsNo targets recorded. Patient Instructions Encounter Date Encounter Id Patient Instructions Last Modified By Organization Details Last Modified Time 08/05/2025 [id number] Monitor for any new symptoms in the area of concern. Follow up if new symptoms develop or imaging demonstrates changes. [email or web address] Not available 08/05/2025 14:40:59 Please note: Parts of this encounter note have been generated by AI based on audio conversation. Patient consent was required prior to utilizing this technology. Content review was required prior to finalizing the note. [email or web address] Not available 08/05/2025 14:40:59 Reason for Referral Rhinology Referral for Incom [...] contr ast No observ ation record ed. [email or web address] Not Available 06/11 11:06:58 07/22/20 24 01/02/2022 imagi ng/di agnos tic resul t No observ ation record ed. [email or web address] Not Available 01:07:03 07/22/20 24 02/14/2022 imagi ng/di agnos tic resul t No observ ation record ed. [email or web address] Not Available 01:07:04 07/22/20 24 02/14/2022 audio gram No observ ation record ed. [email or web address] Not Available 01:07:36 05/10/20 25 03/10/2025 MRI, neck, w/wo contr ast No observ ation record ed. [email or web address] Not Available 08/2025 14:59:43 Result Notes None recorded. Problems Name Problem SNOMED Code Status Onset Date Resolution Date Notes Provider Name and Address Organization Details Recorded Time Allergic rhinitis 39758233 Active 2014 Allergic Rhinitis; Note: Date Diagnosed : 12/18/2014 11:33 AM (477.9) Not Available [facility] 4 02:35:58 Asthma 140083612 Active 2014 Asthma: unspecifi ed; Note: Date Diagnosed : 12/18/2014 11:33 AM (493.90) Not Available [facility] 4 02:35:57 Chronic sinusitis 11694994 Active 2014 Sinusitis , chronic, NOS; Note: Date Diagnosed : 12/18/2014 11:33 AM (473.9) Not Available [facility] 4 02:36:00 Snoring 09954542 Active 2014 Snoring; Note: Date Diagnosed : 01/13/2015 11:14 AM (786.09) Not Available [facility] 4 02:35:56 Obstructi ve sleep apnea syndrome 81371521 Active 2014 Obstructi ve sleep apnea (adult) (pediatri c); Note: Date Diagnosed : 03/03/2015 3:57 PM (327.23) ; Start Date : 5 Obstruc tive sleep apnea (adult) (pediatri c); Note: Date Diagnosed : 06/02/2015 11:10 AM (G47.33) [mapped from ICD9 code: 327.23] Not Available [facility] 4 02:35:49 Deviated nasal septum 945006767 Active 2014 Deviated nasal septum; Note: Date Diagnosed : 12/18/2014 11:33 AM (470) Note: Date Diagnosed : 12/18/2014 11:33 AM (470) ; Start Date : 5 Deviate d nasal septum; Note: Date Diagnosed : 06/02/2015 11:10 AM (J34.2) [mapped from ICD9 code: 470] Note: Date Diagnosed : 06/02/2015 11:10 AM (J34.2) [mapped from ICD9 code: 470] CESAR ANDERSEN MD [address] [place] [address], [place], [address] , [facility] - [facility] 4 12:20:11 Sensorine ural hearing loss of bilateral ears 738614189 Active 2015 Sensorine ural hearing loss, bilateral ; Note: Date Diagnosed : 09/05/2016 1:36 PM (H90.3) Not Available [facility] 4 02:35:53 Dizziness and giddiness 078894123 Active 2015 Dizziness and giddiness ; Note: Date Diagnosed : 09/05/2016 1:36 PM (R42) Not Available [facility] 4 02:35:52 Chronic rhinitis 58434673 Active 2015 Chronic rhinitis; Note: Date Diagnosed : 11/08/2016 2:03 PM (J31.0) Not Available [facility] 4 02:35:47 Disorder of nasal sinus 5476308 Active 2015 Other specified disorders of nose and nasal sinuses; Note: Date Diagnosed : 6 12:49 PM (J34.8) Not Available [facility] 4 02:35:55 Disorder of the nose 38620360 Active 2015 Other specified disorders of nose and nasal sinuses; Note: Date Diagnosed : 6 12:49 PM (J34.8) Not Available [facility] 4 02:35:55 Impacted cerumen of bilateral ears 86936916616 27142 Active 2021 Impacted cerumen, bilateral ; Note: Date Diagnosed : 12/14/2021 6:19 PM (H61.23) Impacte rodriguez dicksonn, bilateral ; Note: Date Diagnosed : 09/05/2016 1:44 PM (H61.23) ; Start Date : 6 Not Available [facility] 4 02:35:54 Bilateral tinnitus 39368683043 02 Active 2021 Tinnitus, bilateral ; Note: Date Diagnosed : 12/14/2021 6:19 PM (H93.13) Note: Date Diagnosed : 12/14/2021 6:19 PM (H93.13) CESAR ANDERSEN MD [address] [place],[address], [place], [address] , [place] - [facility] 4 15:15:05 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; Note: Date Diagnosed : 12/14/2021 6:19 PM (D11.0) Note: Date Diagnosed : 12/14/2021 6:19 PM (D11.0) CESAR ANDERSEN MD 100 [facility] [place],[address] [facility], [place], [place], [address] , [place] - [facility] 4 12:20:32 Nasal congestio n 80322671 Active 2023 CESAR ANDERSEN MD [address] [place], [place] [address]on [place],[address], [place], [address] , [place] - [facility] 4 12:20:19 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 CESAR ANDERSEN MD 100 [facility] [place],[address], [place], [address] , [place] - [facility] 4 15:26:56 Incompete nce of nasal valve 068515178 Active 2023 CESAR ANDERSEN MD [address] [place],[address], [place], [place], [address] , [place] - [facility] 4 16:15:16 Abnormal auditory perceptio n 91245525 Active 2024 ESTER CAR PA-C [address] [place],[facility] 100, [place], [address] , [facility] - [facility] 5 17:32:54 Mass of tongue 793221578 Active 2024 CESAR ANDERSEN MD 100 [facility] [place],[facility] 100, [facility] [place], [address] , [facility] - [facility] 14:40:55 Problem Notes None recorded. Procedures Surgical History Date Name Laterality Status Provider Name and Address Organization Details Recorded Time 08/05/2025 FOL_DP completed CESAR ANDERSEN MD [address] [facility] [place] [address], [place], [address], [facility] - [facility] 08/05/2025 14:40:48 05/04/2024 Comp Audio with Tymps - 32259 & 63516 completed Eloy CONNOR [address] [facility],[place] [address], [place], [address], [facility] - [facility] 05/04/2024 14:54:22 Imaging Results None recorded. Procedure Notes None recorded. Medical Equipment None Reported. Allergies Allergen ID Allergen Name Allergen Category Reaction Reaction Severity Criticality Documentation Date Start Date Code Code System Note Provider Name and Address Organization Details Recorded Time 182168 doxycycli ne Not available Not available Not available Not available 08/05/2025 3640 RxNorm AMEYA collins [facility] 14:16:26 955646 ciproflox acin medicatio n Not available Not available Not available 10/18/2025 2551 RxNorm Not Available benedicta [employer] - prod 5 11:24:21 637618 azithromy birgit medicatio n Not available Not available [facility] 10/18/2025 21211 RxNorm Not Available benedicta [employer] External Data [employer] - prod 5 11:24:21 553095 venlafaxi ne medicatio n Not available Not available [facility] 10/18/2025 26695 RxNorm Not Available benedicta [employer] Data Service - prod 5 11:24:21 894917 levofloxa birgit medicatio n Not available Not available [facility] 10/18/2025 03824 RxNorm Not Available matilda - External Data Service - prod 5 11:24:21 195256 clarithro mycin medicatio n Not available Not available Not available 10/18/20252017 55339 RxNorm Not Available matilda - External Data Service - prod 5 11:24:23 588392 fluconazo le medicatio n rash Not available Not available 10/18/20252016 4450 RxNorm Not Available matilda - External Data Service - prod 5 11:24:49 419858 latex environme nt,medica tion Not available Not available Not available 10/18/20252024 75051 91 RxNorm If she smell s it-ma kes her short of breat h Not Available matilda [employer] External Data [employer] - prod 5 11:24:49 864385 procaine medicatio n palpitati ons Not available Not available 10/18/20252016 8701 RxNorm Not Available matilda [employer] External Data Service - prod 5 11:24:49 756814 erythromy birgit medicatio n Not available Not available Not available 10/18/20252018 4053 RxNorm Not Available matilda - External Data Service - prod 5 14:47:16 294332 iodine medicatio n rash Not available low 10/18/20252024 5933 RxNorm Not Available [employer]ilda - External Data Service - prod 5 14:47:16 235063 ioversol medicatio n Not available Not available Not available 10/18/20252018 90615 RxNorm Not Available matilda - External Data Service - prod 5 14:47:16 938239 mold extract environme nt dyspnea rash Not available Not available high 10/18/20252024 16519 8 RxNorm Not Available matilda [employer] External Data Service - prod 5 14:47:16 24936 moxifloxa birgit medicatio n other Not available Not available 04/14/2024 69268 2 RxNorm React ion: unkno wn, unspe cifie d;; Not Available [facility] 4 01:03:28 93440 Iodinated contrast media (substanc e) medicatio n other Not available Not available 04/14/2024 35774 2003 SNOMED React ion: unkno wn, unspe cifie d;; Not Available [facility] 4 01:03:31 78993 Cipro medicatio n other Not available Not available 04/14/202448105 3 RxNorm React ion: other react ion, Unkno wn; Not Available [facility] 4 01:03:33 Medications Name Sig Start Date Stop Date Status Note LastModified by Organization Details LastModified Time naltrexon e 1.5mg capsules 08/05 completed Not Available Not Available Not Available naltrexon e 4.5mg capsules TAKE 1 CAPSULE BY MOUTH DAILY active Not Available Not Available No t Available tretinoin 0.1 % topical cream APPLY TO HYPERPIG MENTED SPOTS ON FACE AT BEDTIME active Not Available Not Available No t Available amoxicill in 500 mg capsule TAKE 1 CAPSULE BY MOUTH THREE TIMES A DAY active Not Available Not Available No t Available budesonid e 32 mcg/actua tion nasal spray 2 spray into both nostrils 12/14 completed Medicati on ID: [id number] P rescribe d By Name: BAILEY Read nd Name: medardo Shin Method: E-Prescr ibed Sub s Allowed: subs OK Medic ationGen ericName : budesoni de Not Available Not Available Not Available fluconazo le 100 mg tablet TAKE 1 TABLET BY MOUTH EVERY DAY DAILY FOR 7 DAYS active Not Available Not Available No t Available clotrimaz ole 10 mg tara 12/14 completed Medicati on ID: [id number] Du ration Value: 5 Brand Name: clotrima [place] Method: E-Prescr ibed Sub s Allowed: subs OK Speci al Instruct ion: TAKE 1 TABLET BY MOUTH 5 TIMES A DAY Medi cationGe nericNam e: clotrima zole Not Available Not Available Not Available nystatin 100,000 unit/mL oral suspensio n SWISH AND SWALLOW 5ML FOUR TIMES A DAY FOR 7 DAYS 06/09 completed Not Available Not Available Not Available prednison e 10 mg tablet TAKE 4 TABS BY MOUTH DAILY X2 DAYS, 3 TABS DAILY X2 DAYS, 2 TABS DAILY X2 DAYS, 1 TAB DAILY X2 DAYS active Not Available Not Available No t Available gabapenti n 600 mg tablet TAKE 1 TABLET BY MOUTH TWICE A DAY active Not Available Not Available No t Available doxycycli ne hyclate 100 mg capsule TAKE 1 CAPSULE BY MOUTH TWICE A DAY 06/09 completed Not Available Not Available Not Available albuterol sulfate 2.5 mg/3 mL (0.083 %) solution for nebulizat ion 12/14 completed Medicati on ID: [id number] Du ration Value: 25 Brand Name: albutero [...] HOUR PRE-PROC EDURE MAY REPEAT ONE TIME 05/03 completed Not Available Not Available Not Available fluconazo le 150 mg tablet TAKE 1 TABLET BY MOUTH. REPEAT IN 72 HOURS. active Not Available Not Available No t Available hydroquin one 4 % topical cream PLEASE SEE ATTACHED FOR DETAILED DIRECTIO NS active Not Available Not Available No t Available metronida zole 0.75 % (37.5 mg/5 gram) vaginal gel INSERT 1 APPLICAT ORFUL VAGINALL Y EVERY DAY AT BEDTIME FOR 5 DAYS 05/03 completed Not Available Not Available Not Available famotidin e 40 mg tablet 2021 active Medicati on ID: [id number] B rand Name: famotidi ne Send Method: [...] elayed release 12/14 completed Medicati on ID: [id number] Du ration Value: 90 Brand Name: Nexium [...] Not Available Not Available No t Available hydrocort isone acetate 25 mg rectal supposito ry UNWRAP AND INSERT 1 SUPPOSIT ORY INTO RECTUM AT BEDTIME active Not Available Not Available No t Available ciclopiro x 8 % topical solution 06/09 completed Medicati on ID: [id number] B rand Name: ciclopir ox Send Method: E-Prescr ibed Sub s Allowed: subs OK Speci al Instruct ion: PLEASE SEE ATTACHED FOR DETAILED DIRECTIO NS [facility]ic[facility] : ciclopir ox Not Available Not Available Not Available famotidin e 20 mg tablet TAKE 1 TABLET BY MOUTH TWICE A DAY 05/03 completed Not Available Not Available Not Available Celexa 20 mg tablet TAKE 1 TABLET BY MOUTH EVERY DAY active Not Available Not Available No t Available pyridosti gmine bromide 60 mg tablet TAKE 1/2 TABLET BY MOUTH TWICE A DAY FOR 1 WEEK, THEN 1 TABLET TWICE A DAY active Not Available Not Available No t Available gabapenti n 300 mg capsule 02/14 completed Medicati on ID: [id number] B rand Name: gabapent in Send Method: E-Prescr ibed Sub s Allowed: subs OK Medic ationGen ericName : gabapent in Not Available Not Available Not Available omeprazol e 20 mg capsule,d elayed release TAKE 1 CAPSULE BY MOUTH DAILY IN THE MORNING active Not Available Not Available No t Available budesonid e 0.5 mg/2 mL suspensio [...] oral liquid 01/13 completed Medicati on ID: [id number] Du ration Value: 3 Reason: () Brand Name: Iophen C-NR Sen d Method: E-Prescr ibed Sub s Allowed: subs OK Speci al Instruct ion: TAKE 5 TO 10 MLS BY MOUTH EVERY 4 TO 6 HOURS NEEDED FOR COUGH Me dication GenericN mindi: Iophen C-NR Not Available Not Available Not Available levalbute rol 1.25 mg/3 mL solution for nebulizat ion INHALE 1 VIAL (3 ML) VIA NEBULIZE R 2 TIMES A DAY active Not Available Not Available No t Available azelastin e 137 mcg (0.1 %) nasal spray INSTILL 1-2 SPRAYS TO EACH NOSTRIL TWICE DAILY NEEDED active Not Available Not Available No [...] DAY FOR A TOTAL OF 6 DAYS 05/03 completed Not Available Not Available Not Available Nasal Decongest ant (pseudoep hedrine) 30 mg tablet 01/13 completed Medicati on ID: [id number] Du ration Value: 8 Reason: () Brand Name: Nasal Deconges tant (pseudoe ph) Send Method: E-Prescr ibed Sub s Allowed: subs OK Speci al Instruct ion: TAKE 1 TABLET BY MOUTH EVERY 8 HOURS NEEDED M edicatio nGeneric Name: Nasal Deconges tant (pseudoe ph) Not Available Not Available Not Available Celexa 40 mg tablet 12/14 completed Medicati on ID: [id number] Du ration Value: 30 Brand Name: Celexa S end Method: E-Prescr ibed Sub s Allowed: subs ASMITA boston Instruct ion: TAKE 1 TABLET BY MOUTH EVERY DAY Medi cationGe nericNam e: Celexa Not Available Not Available Not Available dicyclomi ne 10 mg capsule TAKE 1 CAPSULE BY MOUTH 3 TIMES A DAY NEEDED active Not Available Not Available No t Available loratadin e 10 mg tablet TAKE 1 TABLET EVERY DAY NEEDED FOR ALLERGIE S 90 active Not Available Not Available No t Available ipratropi um bromide 0.02 % solution for inhalatio n 2.5 ML INHALED 2 TIMES A DAY NEEDED FOR SHORTNES S OF BREATH OR WHEEZING USE WITH LEVALBUT JACE active Not Available Not Available No t Available amoxicill in 875 mg-potass ium clavulana te 125 mg tablet TAKE 1 TABLET BY MOUTH TWICE A DAY 05/03 completed Not Available Not Available Not Available azithromy birgit 500 mg tablet TAKE 1 TABLET BY MOUTH EVERY DAY FOR 5 DAYS 05/03 completed Not Available Not Available Not Available Vitamin D3 25 mcg (1,000 unit) tablet TAKE 2 TABLETS BY MOUTH ONCE DAILY FOR 30 DAYS 06/09 completed Not Available Not Available Not Available cyclobenz aprine 5 mg tablet TAKE 1 TABLET BY MOUTH EVERY DAY AT BEDTIME NEEDED active Not Available Not Available No t Available duloxetin e 30 mg capsule,d elayed release 06/09 completed Medicati on ID: [id number] B rand Name: duloxeti ne Send Method: E-Prescr ibed Sub s Allowed: subs ASMITA boston Instruct ion: TAKE 1 CAPSULE BY MOUTH EVERY DAY Medi cationGe nericNam e: duloxeti ne Not Available Not Available Not Available levalbute rol HFA 45 mcg/actua tion aerosol inhaler INHALE 2 PUFFS EVERY 6 HOURS NEEDED FOR WHEEZING active Not Available Not Available No t Available chlorhexi dine gluconate 0.12 % mouthwash SWISH WITH 15 MLS FOR 20 SECONDS TWICE A DAY SPIT OUT EXCESS, NO EATING/D RINKING FOR 30 MIN AFTER active Not Available Not Available No t Available Symbicort 160 mcg-4.5 mcg/actua tion HFA aerosol inhaler 12/14 completed Medicati on ID: [id number] Du ration Value: 90 Brand Name: Symbicor t Send Method: E-Prescr ibed Sub s Allowed: subs OK Speci al Instruct ion: INHLAE 2 PUFFS TWICE A DAY Medi cationGe nericNam e: Symbicor t Not Available Not Available Not Available Mucinex 1,200 mg tablet, extended release 12/14 completed Medicati on ID: [id number] Br and Name: Mucinex Send Method: E-Prescr ibed Sub s Allowed: subs OK Medic ationGen ericName : Mucinex Not Available Not Available Not Available Dramamine Less Drowsy 25 mg tablet Take 1 tablet by mouth every eight hours as needed 12/14 completed Medicati on ID: [id number] D uration Value: 7 Brand Name: Dramamin e Less Drowsy S end Method: E-Prescr ibed Sub s Allowed: subs OK Medic ationGen ericName : Dramamin e Less Drowsy Not Available Not Available Not Available Omnaris 50 mcg nasal spray 06/09 completed Medicati on ID: [id number] B rand Name: Omnaris Send Method: E-Prescr ibed Sub s Allowed: subs OK Medic ationGen ericName : Omnaris Not Available Not Available Not Available cholecalc iferol (vitamin D3) 50 mcg (2,000 unit) tablet TAKE 1 TABLET BY MOUTH EVERY DAY 06/09 completed Not Available Not Available Not Available Alvesco 160 mcg/actua tion aerosol inhaler INHALE 2 PUFFS TWICE DAILY; PATIENT NEEDS AN APPT FOR FURTHER REFILLS, PLEASE CALL THE OFFICE active Not Available Not Available No t Available calcium 315 mg (as citrate)- vitamin D3 6.25 mcg (250 unit) tablet TAKE 1 TABLET BY MOUTH TWICE A DAY active Not Available Not Available No t Available Gavilyte- C 240 gram-22.7 2 gram-6.72 gram-5.84 gram oral solution TAKE 4,000 ML BY MOUTH 1 TIME FOR 1 DOSE. DRINK 8 OZ EVERY 10-15 MINUTES UNTIL SOLUTION IS GONE 05/03 completed Not Available Not Available Not Available GaviLyte- G 236 gram-22.7 4 gram-6.74 gram-5.86 gram oral solution MIX DIRECTED THEN DRINK 8 OUNCES EVERY 15 MINUTES UNTIL FINISHED 05/03 completed Not Available Not Available Not Available Gavilax 17 gram/dose oral powder MIX 17GM WITH 8 OUNCES OF FLUID ORALLY ONCE A DAY active Not Available Not Available No t Available Spiriva Respimat 2.5 mcg/actua tion solution for inhalatio n INHALE 2 PUFFS BY MOUTH DAILY FOR 30 DAYS active Not Available Not Available No t Available Trulance 3 mg tablet TAKE 1 TABLET BY MOUTH EVERY DAY active Not Available Not Available No t Available Sodium Fluoride 5000 Dry Mouth 1.1 % dental paste DISPENSE PEA SIZED AMOUNT BRUSH TEETH, SPIT BUT DON'T RINSE AFTER. active Not Available Not Available No t Available BinaxNOW COVID-19 Ag Self Test kit TEST DIRECTED TODAY 05/03 completed Not Available Not Available Not Available Vitals Date Recorded Body height Body mass index (BMI) Body weight Provider Name and Address Organization Details Last Updated DateTime 05/03/2025 157.48 cm 22.9 kg/m2 68206.05 g Latonia Bennett [place] - [facility] 05/03/2025 15:20:54 Date Recorded Body height Body mass index (BMI) Body weight Provider Name and Address Organization Details Last Updated DateTime 05/04/2024 157.48 cm 22.9 kg/m2 30048.05 g Jena Hatfield [place] - [facility] 05/04/2024 15:02:24 Date Recorded Body height Body mass index (BMI) Body weight Provider Name and Address Organization Details Last Updated DateTime 06/10/2024 157.48 cm 22.9 kg/m2 98266.05 g Jena Hatfield [place] [facility] [facility] 06/10/2024 15:30:00 Date Recorded Body height Provider Name an d Address Organization Details Last Updated DateTime 08/05/2025 157.48 cm AMEYA KAYLYN [place] - [facility] 08/05/2025 14:14:51 Social History None recorded. Functional Status None recorded. Mental Status None recorded. Family History Nothing Reported. Medical History No medical history recorded. Gynecological HistoryNo gynecological history recorded. Obstetrics History GPAL:G 0 P 0 0 0 0 Past Encounters Encounter ID Performer Location Encounter Start Date Encounter Closed Date Diagnosis/Indication Diagnosis SNOMED-CT Code Diagnosis ICD10 Code Diagnosis IMO Codes Diagnosis Note [id number] CESAR ANDERSEN MD [facility] [address] [address] 05/04/2024 14:15:30 05/04/2024 15:30:13 Bilateral tinnitus 7835066816 102 H93.13 Sensorineu ral hearing loss of bilateral ears 264541223 H90.3 Nasal congestion 0267090 0 R09.81 Neoplasm o f parotid gland 325854165 D49.0 [id number] Eloy CONNOR [facility] [address] [address] 05/04/2024 14:51:25 05/06/2024 23:39:53 Bilateral tinnitus 4112331572 102 H93.13 Sensorineu ral hearing loss of bilateral ears 129066363 H90.3 Audiologic al evaluation results: Right ear: Moderately -severe high frequency sensorineu ral hearing loss with excellent word recognitio n. Left ear: Severe high frequency sensorineu ral hearing loss with excellent word recognitio n. Tympanomet ry: Right Ear:Type A Left Ear:Type A [id number] CESAR ANDERSEN MD [facility] [address] [address] 06/10/2024 15:22:20 06/10/2024 16:13:56 Deviated nasal septum 853611848 J34.2 Nasal congestion 1300137 0 R09.81 Benign aden plasm of parotid gland 23240550 D11.0 Incompeten ce of nasal valve 559641985 J34.89 [id number] ESTER CAR PA-C [facility] [address] [address] 05/03/2025 15:13:58 05/03/2025 15:45:51 Bilateral tinnitus 5096499999 102 H93.13 Abnormal a uditory perception 37392138 H93.293 54510729 Allergic rhinitis 097259 04 J30.9 Sensorineu ral hearing loss of bilateral ears 707716396 H90.3 [id number] CESAR ANDERSEN MD [facility] [address] [place] [address] 08/05/2025 14:07:40 08/05/2025 15:03:50 Mass of tongue 896742717 K14.8 80090 Health Concerns Section Related Observation LastModified by Organization Detai ls LastModified Time None Recorded Concern Status LastModified by Organization Details LastModified Time None Recorded Advance Directives Directive None Recorded Payers Insurance Date Sequence Insurance Name Policy Number Policy Christiansen Covered Member ID Christiansen Member ID Guarantor Name 10/15/2025 1 [place]: [employer] Flores Ayoubano [id number] Flores A Clarice 10/15/2025 2 [facility] - MEDICARE ENHANCE (INDEMNITY PLAN) Flores Sanchez Clarice [id number] Flores A Clarice 05/03/2025 3 [place] [facility] Flores Sanchez Clarice [id number] Flores Sanchez Clarice Notes Date Note Type Note Provider Name and Address Organization Details Recorded Time 4 text/html ROS as noted in the HPI tinnitus bilateral non pulsatile high pitchworse in [...] - advised observation CESAR ANDERSEN MD [address] [address], [place], [phone], [facility] - [facility] 05/04/2024 15:29:33 4 text/html Audiological Evaluation HPIReported by PatientHearing LossFor hearing loss perceived, patient reportshearing loss in both ears (no differences noted between ears)but reportsgradual onset.TinnitusFor tinnitus reported, patient reportsboth ears.DizzinessFor balance symptoms reported, patient reportsno report of dizziness.Use of amplification or other hearing devicesFor use of amplification or other hearing devices, patient reportsnone (does not use amplification). Eloy CONNOR [address] [facility] [address], [place], [address], [place] [facility] [place] 05/04/2024 14:57:50 4 text/html ROS as noted in the [facility] parotid nodulepreviously workup with Dr Bran felt to be c/w intraparotid LNrecalls it has been present for 8-10 yrs01/02/[address] - normal parotid tissue with no mass. patchy T2 hyperintense signal noted in cheeks bilaterally suggestive of cosmetic injections06/05/2024 MRI soft tissue face and neck with and without contrast at [facility] shows no mass, inflammatory change, lymphadenopathy or other concerning imaging abnormality of the neck. 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 No lesions of the parotid. nasal congestion chronic12/12/16 CT sinus at [facility] - normal sinus, septum to left, degenerative changes of TMJ01/04/15 CT sinus at [facility] - normal sinus, septum to left, degenerative [...] - advised observation CESAR ANDERSEN MD [address] [facility] [address], [place], [address], [place] - [facility] [place] 06/10/2024 16:16:25 5 text/html ROS as noted in the HPI 64yo female with hearing aids presents for evaluation of bilateral ear drainage. She reports pollo a sinus infection 3-4 weeks ago. She has since been treated by her primary care provider with amoxicillin and methylprednisolone and then Augmentin and prednisone. She completed this medication regimen 4 days ago, and reports moderate symptom improvement. She endorses associated tinnitus, louder than her baseline. Denies ear pain. She is taking daily intranasal Sensimist, as she cannot tolerate Flonase. Denies anosmia, anterior drainage, or nasal congestion today. She has persistent postnasal drip. CESAR ANDERSEN MD [address] [address], [place], [address], [place] - [facility] 05/03/2025 18:06:52 text/html Right tongue base mass 03/10/2025 MRI neck with and without contrast, [facility] Interval decrease in size of enlarged left level 2 lymph node. Small left level 4 lymph nodes, enlarged left paratracheal mediastinal lymph nodes are stable. Right parotid gland 4 mm enhancing nodule is stable. Asymmetric T2 hyperintense focus with enhancement in the right tongue base, right vallecula. PV 05/03/25 [facility] - tinnitus, rec use hearing aids parotid nodule previously workup with Dr Bran felt to be c/w intraparotid LN recalls it has been present for 8-10 yrs 01/02/[address] - normal parotid tissue with no mass. patchy T2 hyperintense signal noted in cheeks bilaterally suggestive of cosmetic injections 06/05/2024 MRI soft tissue face and neck with and without contrast at [facility] shows no mass, inflammatory change, lymphadenopathy or other concerning imaging abnormality of the neck. 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 No lesions of the parotid. nasal congestion chronic - offered referral to plastic surgery to discuss outcomes of surgery options. 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 4x3mm aneurysm projecting inferiorly from superior cavernous segment of left ICA [facility] - advised observation Flores Oneil is a 64-year-old female who presents for evaluation of the back surface of her tongue. She reports concerns stemming from imaging findings noted during an MRI performed on 03/10/2025 at [facility]. The MRI demonstrated asymmetric T2 hyperintense focus with enhancement in the right tongue base and right vallecula. She previously underwent evaluation for enlarged lymph nodes, including biopsies and imaging studies, which revealed stable findings without significant concern. She has not experienced symptoms such as coughing up blood and denies any recent camera examinations of the area. CESAR ANDERSEN MD [address] [place] [address], [phone], [facility] - [facility] 08/05/2025 14:42:48 OBGyn Episode No OBEpisode recorded.
--- OUTSIDE RECORDS SUMMARY | 2025-11-01 17:28 | XMS_ITS | Encounter Summary ---
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 Name Role Phone Unavailable Primary Care Provider Unavailabl e Reason for Visit * Reason Comments Med Refill Encounter Details Date Type Department Care Team (Late st Contact Info) Description 07/28/2025 Refill [facility] [address], [place] [phone] Silvina Velazquez BDS [address], [place] [phone] Social History Tobacco Use Types Packs/Day Years Used Date Smoking Tobacco: Never Smokeless Tobacco: Never Comments Unknown Sex and Gender Information Value Date Recorded Sex Assigned at Female 10/01/2022 10:32 AM EDT Legal Sex Female 10:32 AM EDT Gender Identity Female 10/01/2022 10:32 AM EDT Sexual Orientation Straight 10/01/2022 10 :32 AM EDT documented as of this encounter Miscellaneous Notes * Telephone Encounter - Shun Nicole DMD - 07/28/2025 7:51 AM EDT Approving, but needs appt for additional refills. documented in this encounter Plan of Treatment Upcoming Encounters Date Type Department Care Team (Late st Contact Info) Description 03/10/2026 12:45 PM EDT Office Visit [facility] [address], [place] [id number] Jazlyn Reddy documented as of this encounter Visit Diagnoses Not on filedocumented in this encounter
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
--- OUTSIDE RECORDS SUMMARY | 2025-11-01 17:28 | XMS_ITS | Continuity of Care Document ---
Author Organization [place] - [facility], [facility] Address [address] [place] [address] Care Team Providers Care Service Station Operator Name Role Phone MAURA MCCURDY Primary Care Provider Assessment Encounter Date Assessment Date Assessment LastModified by Organization Details LastModified Time 08/05/2025 08/05/2025 Assessment: - Asymmetric T2 hyperintense [...] available Not available Lab None recorded. Referral None recorded. Procedures None recorded. Surgeries None recorded. Imaging None recorded. Medication Orders None recorded. Patient TargetsNo targets recorded. Patient Instructions Encounter Date Encounter Id Patient Instructions Last Modified By Organization Details Last Modified Time 08/05/2025 [id number] Monitor for any new symptoms in the [...] Not available 08/05/2025 14:40:59 Reason for Referral None Reported. Problems Name Problem SNOMED Code Status Onset Date Resolution Date Notes Provider Name and Address Organization Details Recorded Time Allergic rhinitis 19713621 Active 2014 Allergic Rhinitis; Note: Date Diagnosed : 12/18/2014 11:33 AM (477.9) Not Available [facility] 4 02:35:58 Asthma 877574851 Active 2014 Asthma: unspecifi ed; Note: Date Diagnosed : 12/18/2014 11:33 AM (493.90) Not Available [facility] 4 02:35:57 Chronic sinusitis 62425916 Active 2014 Sinusitis , chronic, NOS; Note: Date Diagnosed : 12/18/2014 11:33 AM (473.9) Not Available [facility] 4 02:36:00 Snoring 68964946 Active 2014 Snoring; Note: Date Diagnosed : 01/13/2015 11:14 AM (786.09) Not Available [facility] 4 02:35:56 Obstructi ve sleep apnea syndrome 16650303 Active 2014 Obstructi ve sleep apnea (adult) (pediatri c); Note: Date Diagnosed : 03/03/2015 3:57 PM (327.23) ; Start Date : 5 Obstruc tive sleep apnea (adult) (pediatri c); Note: Date Diagnosed : 06/02/2015 11:10 AM (G47.33) [mapped from ICD9 code: 327.23] Not Available [facility] 4 02:35:49 Deviated nasal septum 296634141 Active 2014 Deviated nasal septum; Note: Date Diagnosed : 12/18/2014 11:33 AM (470) Note: Date Diagnosed : 12/18/2014 11:33 AM (470) ; Start Date : 5 Deviate d nasal septum; Note: Date Diagnosed : 06/02/2015 11:10 AM (J34.2) [mapped from ICD9 code: 470] Note: Date Diagnosed : 06/02/2015 11:10 AM (J34.2) [mapped from ICD9 code: 470] JOHANNA NORRIS MD [address] [place] [address], [place], [address] , [facility] 4 12:20:11 Sensorine ural hearing loss of bilateral ears 096374611 Active 2015 Sensorine ural hearing loss, bilateral ; Note: Date Diagnosed : 09/05/2016 1:36 PM (H90.3) Not Available [facility] 4 02:35:53 Dizziness and giddiness 778669271 Active 2015 Dizziness and giddiness ; Note: Date Diagnosed : 09/05/2016 1:36 PM (R42) Not Available [facility] 4 02:35:52 Chronic rhinitis 29832251 Active 2015 Chronic rhinitis; Note: Date Diagnosed : 11/08/2016 2:03 PM (J31.0) Not Available [facility] 4 02:35:47 Disorder of nasal sinus 1208302 Active 2015 Other specified disorders of nose and nasal sinuses; Note: Date Diagnosed : 6 12:49 PM (J34.8) Not Available [facility] 4 02:35:55 Disorder of the nose 51005897 Active 2015 Other specified disorders of nose and nasal sinuses; Note: Date Diagnosed : 6 12:49 PM (J34.8) Not Available [facility] 4 02:35:55 Impacted cerumen of bilateral ears 97787173027 53531 Active 2021 Impacted cerumen, bilateral ; Note: Date Diagnosed : 12/14/2021 6:19 PM (H61.23) Impacte d cerumen, bilateral ; Note: Date Diagnosed : 09/05/2016 1:44 PM (H61.23) ; Start Date : 6 Not Available [facility] 4 02:35:54 Bilateral tinnitus 54160492080 02 Active 2021 Tinnitus, bilateral ; Note: Date Diagnosed : 12/14/2021 6:19 PM (H93.13) Note: Date Diagnosed : 12/14/2021 6:19 PM (H93.13) JOHANNA NORRIS MD [address], [place], [address] , [place] - [facility] 4 15:15:05 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; Note: Date Diagnosed : 12/14/2021 6:19 PM (D11.0) Note: Date Diagnosed : 12/14/2021 6:19 PM (D11.0) JOHANNA NORRIS MD [address], [place], [address] , [place] [facility] 4 12:20:32 Nasal congestio n 17559482 Active 2023 JOHANNA NORRIS MD [address], [place], [address] , [place] [facility] 4 12:20:19 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 JOHANNA NORRIS MD [address] [facility], [place], [address] , [place] [facility] 4 15:26:56 Incompete nce of nasal valve 835318749 Active 2023 JOHANNA NORRIS MD [address], [place], [address] , [place] [facility] 4 16:15:16 Abnormal auditory perceptio n 98347892 Active 2024 ESTER CAR PA-C [address], [place], [address] , [place] [facility] 5 17:32:54 Mass of tongue 395757331 Active 2024 JOHANNA NORRIS MD [address] [address], [facility] [place], [address] , [facility] 14:40:55 Problem Notes None recorded. Procedures Surgical History Date Name Laterality Status Provider Name and Address Organization Details Recorded Time 08/05/2025 FOL_DP completed JOHANNA NORRIS MD [address] [facility],[place] [address], [place], [address], [facility] 08/05/2025 14:40:48 05/04/2024 Comp Audio with Tymps - 65365 & 65247 completed Eloy CONNOR [address] [facility],[place] [address], [place], [address], [facility] 05/04/2024 14:54:22 Imaging Results None recorded. Procedure Notes None recorded. Medical Equipment None Reported. Allergies Allergen ID Allergen Name Allergen Category Reaction Reaction Severity Criticality Documentation Date Start Date Code Code System Note Provider Name and Address Organization Details Recorded Time 845327 doxycycli ne Not available Not available Not available Not available 08/05/2025 3640 RxNorm AMEYA collins [facility] 14:16:26 687331 ciproflox acin medicatio n Not available Not available Not available 10/18/2025 2551 RxNorm Not Available [employer] - prod 11:24:21 118870 azithromy birgit medicatio n Not available Not available [facility] 10/18/2025 19371 RxNorm Not Available [employer] - prod 5 11:24:21 210100 venlafaxi ne medicatio n Not available Not available [facility] 10/18/2025 60901 RxNorm Not Available [employer] - prod 11:24:21 923012 levofloxa birgit medicatio n Not available Not available [facility] 10/18/2025 31239 RxNorm Not Available [employer] - prod 5 11:24:21 350899 clarithro mycin medicatio n Not available Not available Not available 10/18/20252017 89952 RxNorm Not Available [employer] - prod 5 11:24:23 614546 fluconazo le medicatio n rash Not available Not available 10/18/20252016 4450 RxNorm Not Available [employer] - prod 5 11:24:49 905235 latex environme nt,medica tion Not available Not available Not available 10/18/20252024 97285 91 RxNorm If she smell s it-ma kes her short of breat h Not Available [employer] - prod 5 11:24:49 093662 procaine medicatio n palpitati ons Not available Not available 10/18/20252016 8701 RxNorm Not Available [employer] - prod 5 11:24:49 942886 erythromy birgit medicatio n Not available Not available Not available 10/18/20252018 4053 RxNorm Not Available [employer] - prod 5 14:47:16 031901 iodine medicatio n rash Not available low 10/18/20252024 5933 RxNorm Not Available [employer] - prod 5 14:47:16 642579 ioversol medicatio n Not available Not available Not available 10/18/20252018 19893 RxNorm Not Available [employer] - prod 5 14:47:16 278776 mold extract environme nt dyspnea rash Not available Not available high 10/18/20252024 94545 8 RxNorm Not Available [employer] - prod 5 14:47:16 71237 moxifloxa birgit medicatio n other Not available Not available 04/14/2024 00647 2 RxNorm React ion: unkno wn, unspe cifie d;; Not Available [facility] 4 01:03:28 99684 Iodinated contrast media (substanc e) medicatio n other Not available Not available 04/14/2024 62264 2003 SNOMED React ion: unkno wn, unspe cifie d;; Not Available [facility] 4 01:03:31 92740 Cipro medicatio n other Not available Not available 04/14/202439637 3 RxNorm React ion: other react ion, Unkno wn; Not Available [facility] 4 01:03:33 Medications Name Sig Start Date [...] both nostrils 12/14 completed Medicati on ID: 944157 P rescribe d By Name: BAILEY Read [...] mg tara 12/14 completed Medicati on ID: 14202 Du ration Value: 5 Brand Name: clotrima [...] nebulizat ion 12/14 completed Medicati on ID: 96380 Du ration Value: 25 Brand Name: albutero [...] mg tablet 2021 active Medicati on ID: 458861 B rand Name: famotidi ne Send Method: [...] elayed release 12/14 completed Medicati on ID: 38732 Du ration Value: 90 Brand Name: Nexium [...] topical solution 06/09 completed Medicati on ID: 580390 B rand Name: ciclopir ox Send Method: [...] mg capsule 02/14 completed Medicati on ID: 480222 B rand Name: gabapent in Send Method: [...] oral liquid 01/13 completed Medicati on ID: 51097 Du ration Value: 3 Reason: () Brand [...] mg tablet 01/13 completed Medicati on ID: 84795 Du ration Value: 8 Reason: () Brand Name: Nasal Deconges tant (pseudoe ph) Send Method: E-Prescr ibed Sub s Allowed: subs OK Speci al Instruct ion: TAKE 1 TABLET BY MOUTH EVERY 8 HOURS NEEDED M edicatio nGeneric Name: Nasal Deconges tant (pseudoe ph) Not Available Not Available Not Available Celexa 40 mg tablet 12/14 completed Medicati on ID: 15633 Du ration Value: 30 Brand Name: Celexa [...] elayed release 06/09 completed Medicati on ID: 537180 B rand Name: duloxeti ne Send Method: E-Prescr ibed Sub s Allowed: subs ASMITA [place] Instruct ion: TAKE 1 CAPSULE BY MOUTH EVERY DAY [facility] cationGe nericNam e: duloxeti ne Not Available [...] aerosol inhaler 12/14 completed Medicati on ID: 26439 Du ration Value: 90 Brand Name: Symbicor t Send Method: E-Prescr ibed Sub s Allowed: subs OK Speci al Instruct ion: INHLAE 2 PUFFS TWICE A DAY Medi cationGe nericNam e: Symbicor t Not Available Not Available Not Available Mucinex 1,200 mg tablet, extended release 12/14 completed Medicati on ID: 71054 Br and Name: Mucinex Send Method: E-Prescr ibed Sub s Allowed: subs OK Medic ationGen ericName : Mucinex Not Available Not Available Not Available Dramamine Less Drowsy 25 mg tablet Take 1 tablet by mouth every eight hours as needed 12/14 completed Medicati on ID: 564022 D uration Value: 7 Brand Name: Dramamin e Less Drowsy S end Method: E-Prescr ibed Sub s Allowed: subs OK Medic ationGen ericName : Dramamin e Less Drowsy Not Available Not Available Not Available Omnaris 50 mcg nasal spray 06/09 completed Medicati on ID: 027131 B rand Name: Omnaris Send Method: E-Prescr [...] Not Available Vitals Date Recorded Body height Provider Name an d Address Organization Details Last Updated DateTime 08/05/2025 157.48 cm AMEYA PATIÑO [place] - [facility] 08/05/2025 14:14:51 Social History None [...] ICD10 Code Diagnosis IMO Codes Diagnosis Note [id number] JOHANNA NORRIS MD [facility] of [address] [address] 08/05/2025 14:07:40 08/05/2025 15:03:50 Mass of tongue 214464489 K14.8 55049 Health Concerns Section Related Observation LastModified by Organization Detai ls LastModified Time None Recorded Concern Status LastModified by Organization Details LastModified Time None Recorded Payers Encounter Date Sequence Insurance Name Policy Number Policy Christiansen Covered Member ID Christiansen Member ID Guarantor Name 08/05/2025 1 [place]: [employer] Flores Oneil [id number] Flores Oneil 08/05/2025 2 [facility] - MEDICARE ENHANCE (INDEMNITY PLAN) Flores Oneil [id number] Flores Oneil Notes Date Note Type Note Provider Name and Address Organization Details Recorded Time 08/05/2025 text/html Right tongue base mass 03/10/2025 MRI neck with and without contrast, [facility] Interval decrease in size of [...] for 8-10 yrs 01/02/22 MRI face at [place] - normal parotid tissue with no mass. patchy T2 hyperintense signal noted in cheeks bilaterally suggestive of cosmetic injections 06/05/2024 MRI soft tissue face and neck with and without contrast at [facility] shows no mass, inflammatory change, lymphadenopathy or other concerning imaging abnormality of the neck. 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 No lesions of the parotid. nasal congestion chronic - offered referral to plastic surgery to discuss outcomes of surgery options. 12/12/16 CT sinus at [facility] - normal sinus, septum to left, degenerative changes of TMJ 01/04/15 CT sinus at [facility] - normal sinus, septum to left, degenerative [...] during an MRI performed on 03/10/2025 at [facility]. The MRI demonstrated asymmetric T2 hyperintense focus with enhancement in the right tongue base and right vallecula. She previously underwent evaluation for enlarged lymph nodes, including biopsies and imaging studies, which revealed stable findings without significant concern. She has not experienced symptoms such as coughing up blood and denies any recent camera examinations of the area. JOHANNA NORRIS MD [address] [place] [address],[place] [address], [place], [address], [facility] - [facility] 08/05/2025 14:42:48 OBGyn Episode No OBEpisode recorded.
== END 2025-11-01 14:45 | disposition home or self-care (01) ==
LOC: HO.HPS 14:02
PROVIDERS: PCP Internal Medicine; Visit Provider Hospitalist
DX: J45.40 Moderate persistent asthma, uncomplicated (principal); R05.3 Chronic cough; J31.0 Chronic rhinitis; G47.33 Obstructive sleep apnea (adult) (pediatric); Q32.1 Other congenital malformations of trachea; R06.09 Other forms of dyspnea
CPT/HCPCS: 99214; G2211

== ENCOUNTER → 2025-11-01 14:01 | Outpatient (BNVA) | payer MEDICARE, OTHER, SELFPAY | PROVIDERS: PCP Internal Medicine; Visit Provider Hospitalist | DX: J45.40 Moderate persistent asthma, uncomplicated (principal); R05.3 Chronic cough; J31.0 Chronic rhinitis; G47.33 Obstructive sleep apnea (adult) (pediatric); Q32.1 Other congenital malformations of trachea; Z99.89 Dependence on other enabling machines and devices; R06.09 Other forms of dyspnea; Z87.891 Personal history of nicotine dependence | CPT/HCPCS: 99212 ==